=== PATIENT | male | born 1975 | race American Indian/Alaskan Native ===

== ENCOUNTER 2017-10-12 07:03 | Inpatient (IN) | payer MEDICARE ==
[2017-10-12 08:20] LABS: Basophils % (Auto) 1.7 % (0.0-1.8); Eosinophils % (Auto) 0.2 % (0.0-4.3); Hemoglobin 10.4 gm/dl (11.8-15.2); Mean Corpuscular HGB Conc 33 % (32-34); Mean Corpuscular Hemoglobin 31 pg (28-32); Mean Corpuscular Volume 95 fl (84-94); Red Blood Count 3.37 M/mm3 (3.65-5.03); Red Cell Distribution Width 18.4 % (13.2-15.2); White Blood Count 2.5 K/mm3 (4.5-11.0)
[2017-10-12 08:24] LABS: Platelet Count 74 K/mm3 (140-440)
[2017-10-12 08:38] LABS: Albumin 3.9 g/dL (3.9-5); Albumin/Globulin Ratio 1.4 %; Bilirubin,Total 0.8 mg/dL (0.1-1.2); Chloride 97.6 mmol/L (98-107); Magnesium 2.2 mg/dL (1.7-2.3); Potassium 5.5 mmol/L (3.6-5.0); Total Protein 6.6 g/dL (6.3-8.2)
--- NOTE | 2017-10-12 10:14 | XRay Report ---
Single view chest: Compared to 05/31/16. Next History: Hypertension. Findings: Cardiomegaly. Trachea is midline. A stable pacemaker. Mild pulmonary venous congestion. No consolidation. Impression: Cardiomegaly with mild pulmonary venous congestion.
[2017-10-12] MEDS ORDERED: D50W (25GM) Syringe IV PRN (10:38)
[2017-10-12] MEDS ORDERED: SODIUM CHLORIDE FLUSH SYRINGE 10 ML IV PRN (10:38)
[2017-10-12] MEDS ORDERED: ZOFRAN IV PRN (10:38)
[2017-10-12] MEDS ORDERED: DULCOLAX PR PRN (10:38)
[2017-10-12] MEDS ORDERED: TYLENOL PO PRN (10:38)
--- NOTE | 2017-10-12 11:38 | Emergency Department Report ---
ED General Adult HPI - General Chief complaint: Altered Mental Status Stated complaint: SYNCOPE Time Seen by Provider: 10/12/17 09:31 Source: family, EMS Mode of arrival: Stretcher Limitations: Altered Mental Status, Physical Limitation - History of Present Illness Initial comments: The patient was sent from dialysis for evaluation of an apparent syncopal episode. He is lethargic and not providing any real information. He is reticent to open his eyes but he is able to do so. He is also not cooperative with providing history although he can communicate his name and context amply. He is here with 2 ladies who are likely family members. They state that the patient goes via transport to dialysis. He cannot state if he was in his normal state of health a.m. He has not been to this facility before. He has a dialysis fistula and not a Vas-Cath. They state that they are unaware of him having any life-threatening infections in the past. No transfer information was sent with the patient from the dialysis clinic. No further information is the available concerning his hemodynamic or or mental status. -: Sudden Associated Symptoms: other (lethargic and not answering questions well) - Related Data Home Medications Medication Instructions Recorded Confirmed Last Taken Carvedilol [Coreg] 1 tab PO BID 06/21/14 08/24/14 07/22/14 12.5mg Insulin Glargine,Hum.rec.anlog 20 unit SQ QHS 06/21/14 08/24/14 07/22/14 [Lantus] 20 units Sevelamer Carbonate [Renvela] 800 mg PO TIDWM 06/21/14 08/24/14 07/22/14 800mg Atorvastatin [Lipitor] 80 mg PO QHS 06/26/14 08/24/14 07/22/14 80mg Clopidogrel [Plavix] 75 mg PO QDAY 06/26/14 08/24/14 07/22/14 75mg Previous Rx's Medication Instructions Recorded Last Taken Type Clindamycin [Clindamycin CAP] 450 mg PO TID #30 capsule 08/08/14 Unknown Rx Ciprofloxacin HCl [Ciprofloxacin 500 mg PO Q12H #14 tab 09/02/15 Unknown Rx TAB] Acyclovir [Zovirax Cap] 400 mg PO BID #10 cap 06/02/16 Unknown Rx HYDROcodone/APAP 5-325 [[place] 1 each PO Q6HR PRN #12 tablet 06/02/16 Unknown Rx 5-325 mg TAB] predniSONE [Deltasone] 20 mg PO QDAY #10 tablet 06/02/16 Unknown Rx Allergies Allergy/AdvReac Type Severity Reaction Status Date / Time No Known Allergies Allergy Verified 09/02/15 12:29 ED Review of Systems ROS: Stated complaint: SYNCOPE Other details as noted in HPI Comment: Unobtainable due to pts medical conditions ED Past Medical Hx - Past Medical History Hx Hypertension: Yes Hx CVA: Yes (10-04) Hx Heart Attack/AMI: Yes Hx Congestive Heart Failure: Yes Hx Diabetes: Yes Hx GERD: Yes Hx Liver Disease: No Hx Renal Disease: Yes (dialysis Tue, Thur, Sat) Hx Sickle Cell Disease: No Hx Seizures: No Hx Asthma: No Hx COPD: No Hx HIV: No Additional medical history: Gastroparesis. HYPERLIPIDEMIA. "cardiac arrest- then stroke in sep" - Surgical History Hx Coronary Stent: Yes Hx Pacemaker: Yes Hx Internal Defibrillator: Yes Additional Surgical History: RT AKA. pacemaker - Social History Smoking Status: Never Smoker - Medications Home Medications: Home Medications Medication Instructions Recorded Confirmed Last Taken Type Carvedilol [Coreg] 1 tab PO BID 06/21/14 08/24/14 07/22/14 History 12.5mg Insulin Glargine,Hum.rec.anlog 20 unit SQ QHS 06/21/14 08/24/14 07/22/14 History [Lantus] 20 units Sevelamer Carbonate [Renvela] 800 mg PO TIDWM 06/21/14 08/24/14 07/22/14 History 800mg Atorvastatin [Lipitor] 80 mg PO QHS 06/26/14 08/24/14 07/22/14 History 80mg Clopidogrel [Plavix] 75 mg PO QDAY 06/26/14 08/24/14 07/22/14 History 75mg Clindamycin [Clindamycin CAP] 450 mg PO TID #30 capsule 08/08/14 08/24/14 Unknown Rx Ciprofloxacin HCl [Ciprofloxacin 500 mg PO Q12H #14 tab 09/02/15 Unknown Rx TAB] Acyclovir [Zovirax Cap] 400 mg PO BID #10 cap 06/02/16 Unknown Rx HYDROcodone/APAP 5-325 [[place] 1 each PO Q6HR PRN #12 tablet 06/02/16 Unknown Rx 5-325 mg TAB] predniSONE [Deltasone] 20 mg PO QDAY #10 tablet 06/02/16 Unknown Rx ED Physical Exam - General Limitations: Altered Mental Status, Physical Limitation General appearance: alert, in no apparent distress - Head Head exam: Present: atraumatic, normocephalic - Eye Eye exam: Present: normal appearance. Absent: scleral icterus - ENT ENT exam: Present: mucous membranes moist - Neck Neck exam: Present: normal inspection - Respiratory Respiratory exam: Present: normal lung sounds bilaterally. Absent: respiratory distress - Cardiovascular Cardiovascular Exam: Present: regular rate, normal rhythm. Absent: systolic murmur, diastolic murmur, rubs, gallop - GI/Abdominal GI/Abdominal exam: Present: soft, normal bowel sounds. Absent: distended, tenderness, guarding, rebound, rigid - Rectal Rectal exam: Present: deferred - Extremities Exam Extremities exam: Present: normal inspection - Back Exam Back exam: Present: normal inspection - Neurological Exam Neurological exam: Present: alert, oriented X3, CN II-XII intact. Absent: motor sensory deficit - Psychiatric Psychiatric exam: Present: normal affect, normal mood - Skin Skin exam: Present: warm, dry, intact, normal color. Absent: rash ED Course Vital Signs 10/12/17 07:34 Temperature 98.5 F Pulse Rate 94 H Respiratory 16 Rate Blood Pressure 98/63 O2 Sat by Pulse 95 Oximetry - Reevaluation(s) Reevaluation #1: Case discussed with Dr. Hernandez and admitted to the hospitalist service. Additional lab was ordered considering the patient's lethargic state. 10/12/17 11:59 Reevaluation #2: The pathologist was paged. Finally I have spoken to Dr. Caballero and he stated that he would enter dialysis orders. 10/12/17 12:00 Reevaluation #3: Review of the patient's previous records indicates that he has a post anoxic brain injury. Perhaps his mental status is his baseline. Further evaluation per hospitalist staff. 10/12/17 12:03 ED Medical Decision Making - Lab Data Result diagrams: 10/12/17 07:55 10/12/17 07:55 Laboratory Results - last 24 hr 10/12/17 10/12/17 10/12/17 07:55 07:55 07:55 WBC 2.5 L RBC 3.37 L Hgb 10.4 L Hct 32.0 L MCV 95 H MCH 31 MCHC 33 RDW 18.4 H Plt Count 74 L Lymph % (Auto) 15.6 [place] % (Auto) 13.7 H Eos % (Auto) 0.2 Baso % (Auto) 1.7 Lymph # 0.4 L [place] # 0.3 Eos # 0.0 Baso # 0.0 Seg Neutrophils % 68.8 Seg Neutrophils # 1.7 L Sodium 141 Potassium 5.5 H Chloride 97.6 L Carbon Dioxide 28 Anion Gap 21 BUN 72 H Creatinine 8.3 H Estimated GFR 9 BUN/Creatinine Ratio 9 Glucose 149 H Lactic Acid 1.10 Calcium 9.0 Magnesium 2.20 Total Bilirubin 0.80 AST 29 ALT 28 Alkaline Phosphatase 94 Total Protein 6.6 Albumin 3.9 Albumin/Globulin Ratio 1.4 TSH Salicylates Acetaminophen Plasma/Serum Alcohol 10/12/17 10/12/17 10/12/17 07:55 07:55 07:55 WBC RBC Hgb Hct MCV MCH MCHC RDW Plt Count Lymph % (Auto) [place] % (Auto) Eos % (Auto) Baso % (Auto) Lymph # [place] # Eos # Baso # Seg Neutrophils % Seg Neutrophils # Sodium Potassium Chloride Carbon Dioxide Anion Gap BUN Creatinine Estimated GFR BUN/Creatinine Ratio Glucose Lactic Acid Calcium Magnesium Total Bilirubin AST ALT Alkaline Phosphatase Total Protein Albumin Albumin/Globulin Ratio TSH 1.150 Salicylates < 0.3 L Acetaminophen < 15.0 Plasma/Serum Alcohol 10/12/17 10/12/17 07:55 10:41 WBC RBC Hgb Hct MCV MCH MCHC RDW Plt Count Lymph % (Auto) [place] % (Auto) Eos % (Auto) Baso % (Auto) Lymph # [place] # Eos # Baso # Seg Neutrophils % Seg Neutrophils # Sodium Potassium Chloride Carbon Dioxide Anion Gap BUN Creatinine Estimated GFR BUN/Creatinine Ratio Glucose Lactic Acid 1.00 Calcium Magnesium Total Bilirubin AST ALT Alkaline Phosphatase Total Protein Albumin Albumin/Globulin Ratio TSH Salicylates Acetaminophen Plasma/Serum Alcohol < 0.01 - EKG Data -: EKG Interpreted by Me EKG shows normal: sinus rhythm, axis, intervals, QRS complexes, ST-T waves Rate: normal - EKG Data Interpretation: other (leftward axis NONSPECIFIC changes interventricular conduction delay slightly peaked T-wave) - Radiology Data Radiology results: report reviewed interpreted by me: Cardiomegaly with pulmonary venous congestion Critical care attestation.: If time is entered above; I have spent that time in minutes in the direct care of this critically ill patient, excluding procedure time. ED Disposition Clinical Impression: Hyperkalemia, End-stage renal disease needing dialysis Altered mental status Qualifiers: Altered mental status type: somnolence Qualified Code(s): R40.0 - Somnolence Syncope Qualifiers: Syncope type: unspecified Qualified Code(s): R55 - Syncope and collapse Disposition: DC-09 OP ADMIT IP TO THIS HOSP Is pt being admited?: Yes Does the pt Need Aspirin: Yes Condition: Stable Time of Disposition: 12:05
[2017-10-12] MEDS ORDERED: NACL 0.9% 100 ML IV PRN (11:52)
[2017-10-12] MEDS: NOVOLOG SUB-Q SCH ×3 (12:29→22:00)
[2017-10-12] MEDS: RENVELA PO SCH ×2 (13:03→18:03)
--- NOTE | 2017-10-12 13:05 | Consultation ---
History of Present Illness - Reason for Consult Consult date: 10/12/17 end stage renal disease, hyperkalemia Requesting physician: RADHA BARRAZA - History of Present Illness 42 years old male with PMH listed below including ESRD, known to us from out pateint dialysis at [facility], sent from dialysis center before the start of dialysis for evaluation of AMS/syncope. No seizure witnessed. Pt unable to provide any history. We are consulted for management of his ESRD/hyperkalemia. Past Medical History: diabetes, ESRD, hypertension, hyperlipidemia Past Surgical History: Other (right AKA) Social history: no significant social history Family history: no significant family history Medications and Allergies Allergies Allergy/AdvReac Type Severity Reaction Status Date / Time No Known Allergies Allergy Verified 09/02/15 12:29 Home Medications Medication Instructions Recorded Confirmed Last Taken Type Carvedilol [Coreg] 1 tab PO BID 06/21/14 08/24/14 07/22/14 History 12.5mg Insulin Glargine,Hum.rec.anlog 20 unit SQ QHS 06/21/14 08/24/14 07/22/14 History [Lantus] 20 units Sevelamer Carbonate [Renvela] 800 mg PO TIDWM 06/21/14 08/24/14 07/22/14 History 800mg Atorvastatin [Lipitor] 80 mg PO QHS 06/26/14 08/24/14 07/22/14 History 80mg Clopidogrel [Plavix] 75 mg PO QDAY 06/26/14 08/24/14 07/22/14 History 75mg Clindamycin [Clindamycin CAP] 450 mg PO TID #30 capsule 08/08/14 08/24/14 Unknown Rx Ciprofloxacin HCl [Ciprofloxacin 500 mg PO Q12H #14 tab 09/02/15 Unknown Rx TAB] Acyclovir [Zovirax Cap] 400 mg PO BID #10 cap 06/02/16 Unknown Rx HYDROcodone/APAP 5-325 [[place] 1 each PO Q6HR PRN #12 tablet 06/02/16 Unknown Rx 5-325 mg TAB] predniSONE [Deltasone] 20 mg PO QDAY #10 tablet 06/02/16 Unknown Rx Active Meds: Active Medications Acetaminophen (Tylenol) 650 mg PO Q4H PRN PRN Reason: Pain MILD(1-3)/Fever >100.5/[place] Acyclovir (Zovirax) 400 mg PO BID [facility] Aspirin (Baby Aspirin) 81 mg PO QDAY ONE Stop: 10/13/17 12:07 Atorvastatin Calcium (Lipitor) 80 mg PO QHS [facility] Bisacodyl (Dulcolax) 10 mg [place] QDAY PRN PRN Reason: Constipation unrelieved by MOM Clopidogrel Bisulfate (Plavix) 75 mg PO QDAY [facility] Dextrose (D50w (25gm) Syringe) 50 ml IV PRN PRN PRN Reason: Hypoglycemia Heparin Sodium (Porcine) (Heparin) 5,000 unit SUB-Q Q12HR [facility] Sodium Chloride (Nacl 0.9%) 100 mls @ 999 mls/hr IV ELVIN PRN PRN Reason: Hypotension Insulin Aspart (Novolog) 0 units SUB-Q ACHS [facility] PRN Reason: Protocol Last Admin: 10/12/17 12:29 Dose: Not Given Insulin Detemir (Levemir) 20 units SUB-Q QHS [facility] Ondansetron HCl (Zofran) 4 mg IV Q8H PRN PRN Reason: N/V unrelieved by [place] Sevelamer Carbonate (Renvela) 800 mg PO TIDWM [facility] Last Admin: 10/12/17 13:03 Dose: 800 mg Sodium Chloride (Sodium Chloride Flush Syringe 10 Ml) 10 ml IV PRN PRN PRN Reason: LINE FLUSH Review of Systems ROS unobtainable: due to mental status Exam - Vital Signs Vital signs: Vital Signs Temp Pulse Resp BP Pulse Ox 98.5 F 94 H 16 98/63 95 10/12/17 07:34 10/12/17 07:34 10/12/17 07:34 10/12/17 07:34 10/12/17 07:34 - General Appearance General appearance: well-developed, chronically ill, frail EENT: ATNC, PERRL, mucous membranes moist Neck: Present: neck supple, trachea midline. Absent: JVD/HJR, Masses Respiratory: Clear to Ascultation, Other (no wheezing ) Heart: regular, normal heart rate, S1S2, no murmurs Gastrointestinal: Present: normoactive bowel sounds. Absent: tenderness Integumentary: no rash, warm and dry Neurologic: other (eyes closed, nonverbal. He does have a residual left sided weakness. ) Musculoskeletal: Present: other (right AKA, LUE AVF +thrill ) Results - Lab Results 10/12/17 07:55 10/12/17 07:55 Most recent lab results Calcium 9.0 mg/dL (8.4-10.2) 10/12/17 07:55 Magnesium 2.20 mg/dL (1.7-2.3) 10/12/17 07:55 Assessment and Plan 1. Syncope 2. ESRD on HD 3. Hyperkalemia 4. Pancytopenia 5. Chronic Systolic HF Plan: Dialysis arrangement made Epogen on dialysis Will correct hyperK+ on dialysis Cause for his pancytopenia unclear-consider heme consult Discussed with Dr Barraza.
[2017-10-12] MEDS: ZOVIRAX PO SCH (21:54)
[2017-10-12] MEDS: HEPARIN SUB-Q SCH (21:55)
[2017-10-12] MEDS: LEVEMIR SUB-Q SCH (22:00)
[2017-10-13 07:18] LABS: Albumin 3.7 g/dL (3.9-5); Albumin/Globulin Ratio 1.2 %; Bilirubin,Total 0.8 mg/dL (0.1-1.2); Chloride 97.4 mmol/L (98-107); Potassium 4.9 mmol/L (3.6-5.0); Total Protein 6.7 g/dL (6.3-8.2)
[2017-10-13 07:20] LABS: Basophils % (Auto) 1.1 % (0.0-1.8); Eosinophils % (Auto) 9.9 % (0.0-4.3); Hematocrit 36.2 % (35.5-45.6); Hemoglobin 11.6 gm/dl (11.8-15.2); Mean Corpuscular HGB Conc 32 % (32-34); Mean Corpuscular Hemoglobin 30 pg (28-32); Mean Corpuscular Volume 94 fl (84-94); Red Blood Count 3.86 M/mm3 (3.65-5.03); Red Cell Distribution Width 18.8 % (13.2-15.2); White Blood Count 3.3 K/mm3 (4.5-11.0)
[2017-10-13 07:31] LABS: Platelet Count 88 K/mm3 (140-440)
[2017-10-13] MEDS: NOVOLOG SUB-Q SCH ×4 (08:47→22:00)
[2017-10-13] MEDS: RENVELA PO SCH ×3 (08:48→16:48)
[2017-10-13] MEDS ORDERED: LEXISCAN IV ONE ×2 (09:20→10:13)
[2017-10-13] MEDS ORDERED: BABY ASPIRIN PO ONE ×2 (10:00→12:06)
--- NOTE | 2017-10-13 10:37 | History and Physical Report ---
History of Present Illness Date of admission: 10/12/17 10:38 Chief complaint: syncope History of present illness: 42 year old man with a past medical history of end-stage renal disease on dialysis, hypertension, systolic CHF, EF of 10%, sp ICD, diabetes, status post right AKA. The patient was at dialysis in a Supine position when he had a sudden syncopal episode. Upon arrival to the emergency room he was altered and confused and somnolence and lethargic. Patient unable to provide any further history, he states that he doesn't really remember what happened, he was at dialysis, he passed out. He denies chest pain, shortness of breath, palpitations or fever Past History Past Medical History: diabetes, dialysis, ESRD, hypertension, hyperlipidemia Past Surgical History: Other (R AKA, ICD, AVF) Social history: lives with family Family history: hypertension Medications and Allergies Allergies Allergy/AdvReac Type Severity Reaction Status Date / Time No Known Allergies Allergy Verified 09/02/15 12:29 Home Medications Medication Instructions Recorded Confirmed Last Taken Type Carvedilol [Coreg] 1 tab PO BID 06/21/14 08/24/14 07/22/14 History 12.5mg Insulin Glargine,Hum.rec.anlog 20 unit SQ QHS 06/21/14 08/24/14 07/22/14 History [Lantus] 20 units Sevelamer Carbonate [Renvela] 800 mg PO TIDWM 06/21/14 08/24/14 07/22/14 History 800mg Atorvastatin [Lipitor] 80 mg PO QHS 06/26/14 08/24/14 07/22/14 History 80mg Clopidogrel [Plavix] 75 mg PO QDAY 06/26/14 08/24/14 07/22/14 History 75mg Clindamycin [Clindamycin CAP] 450 mg PO TID #30 capsule 08/08/14 08/24/14 Unknown Rx Ciprofloxacin HCl [Ciprofloxacin 500 mg PO Q12H #14 tab 09/02/15 Unknown Rx TAB] Acyclovir [Zovirax Cap] 400 mg PO BID #10 cap 06/02/16 Unknown Rx HYDROcodone/APAP 5-325 [[place] 1 each PO Q6HR PRN #12 tablet 06/02/16 Unknown Rx 5-325 mg TAB] predniSONE [Deltasone] 20 mg PO QDAY #10 tablet 06/02/16 Unknown Rx Active Meds: Active Medications Acetaminophen (Tylenol) 650 mg PO Q4H PRN PRN Reason: Pain MILD(1-3)/Fever >100.5/[place] Acyclovir (Zovirax) 400 mg PO BID [facility] Last Admin: 10/12/17 21:54 Dose: 400 mg Aspirin (Baby Aspirin) 81 mg PO QDAY ONE Stop: 10/13/17 12:07 Atorvastatin Calcium (Lipitor) 80 mg PO QHS [facility] Last Admin: 10/12/17 21:55 Dose: 80 mg Bisacodyl (Dulcolax) 10 mg [place] QDAY PRN PRN Reason: Constipation unrelieved by MOM Clopidogrel Bisulfate (Plavix) 75 mg PO QDAY [facility] Dextrose (D50w (25gm) Syringe) 50 ml IV PRN PRN PRN Reason: Hypoglycemia Heparin Sodium (Porcine) (Heparin) 5,000 unit SUB-Q Q12HR [facility] Last Admin: 10/12/17 21:55 Dose: 5,000 unit Sodium Chloride (Nacl 0.9%) 100 mls @ 999 mls/hr IV ELVIN PRN PRN Reason: Hypotension Insulin Aspart (Novolog) 0 units SUB-Q ACHS [facility] PRN Reason: Protocol Last Admin: 10/13/17 08:47 Dose: Not Given Insulin Detemir (Levemir) 20 units SUB-Q QHS [facility] Last Admin: 10/12/17 22:00 Dose: Not Given Ondansetron HCl (Zofran) 4 mg IV Q8H PRN PRN Reason: N/V unrelieved by Reglan Last Admin: 10/13/17 07:03 Dose: 4 mg Sevelamer Carbonate (Renvela) 800 mg PO TIDWM [facility] Last Admin: 10/13/17 08:48 Dose: Not Given Sodium Chloride (Sodium Chloride Flush Syringe 10 Ml) 10 ml IV PRN PRN PRN Reason: LINE FLUSH Review of Systems ROS unobtainable: due to mental status Cardiovascular: syncope, no chest pain Exam - Constitutional Vitals: Temp Pulse Resp BP Pulse Ox 97.4 F L 81 18 128/80 98 10/13/17 04:25 10/13/17 06:29 10/13/17 04:25 10/13/17 04:25 10/13/17 04:25 General appearance: Present: no acute distress, well-nourished - EENT Eyes: Present: PERRL ENT: hearing intact, clear oral mucosa - Neck Neck: Present: supple, normal ROM - Respiratory Respiratory effort: normal Respiratory: bilateral: CTA - Cardiovascular Heart Sounds: Present: S1 & S2. Absent: rub, click - Extremities Extremities: pulses symmetrical, No edema, abnormal (R AKA) Peripheral Pulses: within normal limits - Abdominal General gastrointestinal: Present: soft, non-tender, non-distended, normal bowel sounds Male genitourinary: Present: normal - Integumentary Integumentary: Present: clear, warm, dry - Musculoskeletal Musculoskeletal: gait normal, strength equal bilaterally - Psychiatric Psychiatric: cooperative, other (lethargic) - Neurologic Neurologic: CNII-XII intact, moves all extremities Results - Labs CBC & Chem 7: 10/13/17 05:58 10/13/17 05:58 Labs: Laboratory Last Values WBC 3.3 K/mm3 (4.5-11.0) L 10/13/17 05:58 RBC 3.86 M/mm3 (3.65-5.03) 10/13/17 05:58 Hgb 11.6 gm/dl (11.8-15.2) L 10/13/17 05:58 Hct 36.2 % (35.5-45.6) 10/13/17 05:58 MCV 94 fl (84-94) 10/13/17 05:58 MCH 30 pg (28-32) 10/13/17 05:58 MCHC 32 % (32-34) 10/13/17 05:58 RDW 18.8 % (13.2-15.2) H 10/13/17 05:58 Plt Count 88 K/mm3 (140-440) L 10/13/17 05:58 Lymph % (Auto) 26.1 % (13.4-35.0) 10/13/17 05:58 [place] % (Auto) 12.0 % (0.0-7.3) H 10/13/17 05:58 Eos % (Auto) 9.9 % (0.0-4.3) H 10/13/17 05:58 Baso % (Auto) 1.1 % (0.0-1.8) 10/13/17 05:58 Lymph # 0.9 K/mm3 (1.2-5.4) L 10/13/17 05:58 [place] # 0.4 K/mm3 (0.0-0.8) 10/13/17 05:58 Eos # 0.3 K/mm3 (0.0-0.4) 10/13/17 05:58 Baso # 0.0 K/mm3 (0.0-0.1) 10/13/17 05:58 Seg Neutrophils % 50.9 % (40.0-70.0) 10/13/17 05:58 Seg Neutrophils # 1.7 K/mm3 (1.8-7.7) L 10/13/17 05:58 Sodium 142 mmol/L (137-145) 10/13/17 05:58 Potassium 4.9 mmol/L (3.6-5.0) 10/13/17 05:58 Chloride 97.4 mmol/L (98-107) L 10/13/17 05:58 Carbon Dioxide 23 mmol/L (22-30) 10/13/17 05:58 Anion Gap 27 mmol/L 10/13/17 05:58 BUN 55 mg/dL (9-20) H 10/13/17 05:58 Creatinine 7.7 mg/dL (0.8-1.5) H 10/13/17 05:58 Estimated GFR 9 ml/min 10/13/17 05:58 BUN/Creatinine Ratio 7 % 10/13/17 05:58 Glucose 98 mg/dL (75-100) 10/13/17 05:58 POC Glucose 127 (70-105) H 10/13/17 08:24 Lactic Acid 1.00 mmol/L (0.7-2.0) 10/12/17 10:41 Calcium 9.0 mg/dL (8.4-10.2) 10/13/17 05:58 Magnesium 2.20 mg/dL (1.7-2.3) 10/12/17 07:55 Total Bilirubin 0.80 mg/dL (0.1-1.2) 10/13/17 05:58 AST 33 units/L (5-40) 10/13/17 05:58 ALT 30 units/L (7-56) 10/13/17 05:58 Alkaline Phosphatase 89 units/L (35-129) 10/13/17 05:58 Troponin T 0.904 ng/mL (0.00-0.029) H* 10/13/17 05:58 Total Protein 6.7 g/dL (6.3-8.2) 10/13/17 05:58 Albumin 3.7 g/dL (3.9-5) L 10/13/17 05:58 Albumin/Globulin Ratio 1.2 % 10/13/17 05:58 Triglycerides 99 mg/dL (2-149) 10/12/17 20:55 Cholesterol 80 mg/dL (50-199) 10/12/17 20:55 LDL Cholesterol Direct 32 mg/dL (50-130) L 10/12/17 20:55 HDL Cholesterol 29 mg/dL (40-59) L 10/12/17 20:55 Cholesterol/HDL Ratio 2.75 % 10/12/17 20:55 TSH 1.150 mlU/mL (0.270-4.200) 10/12/17 07:55 Salicylates < 0.3 mg/dL (2.8-20.0) L 10/12/17 07:55 Acetaminophen < 15.0 ug/mL (10.0-30.0) 10/12/17 07:55 Plasma/Serum Alcohol < 0.01 gm% (0-0.07) 10/12/17 07:55 - Imaging and Cardiology Chest x-ray: image reviewed (pulmonary venous congestion) Assessment and Plan Assessment and plan: Syncope 42M who pw syncope at HD Disequilibrium due to HD -likely from fluid removal with HD -continue HD as tolerated Syncope -obtain CE, echo and stress test -monitor on Tele Pancytopenia -hematology consult Metabolic encephalopathy -most likely due to disequilibrium -supportive care Diabetes mellitus Continue insulin therapy. Continue Accu-Cheks before meals and daily at bedtime. End stage renal disease Continue dialysis, case dw nephrology Hypertension Controlled. Continue current medication Sytolic CHF with acute exacerbation fluid removal via HD cardiology consult Plan of care discussed with patient/family: Yes
[2017-10-13] MEDS: HEPARIN SUB-Q SCH ×2 (11:14→21:58)
--- NOTE | 2017-10-13 13:22 | Progress Note ---
Assessment and Plan 1. Syncope 2. ESRD on HD 3. Hyperkalemia 4. Pancytopenia 5. Chronic Systolic HF Plan: Will continue HD on TTS schedule Epogen on dialysis HyperK+ improved on dialysis Cause for his pancytopenia unclear-consider heme consult Subjective Date of service: 10/13/17 Interval history: NO new events. Objective - Exam Narrative Exam: General appearance: well-developed, chronically ill, frail EENT: ATNC, PERRL, mucous membranes moist Neck: Present: neck supple, trachea midline. Absent: JVD/HJR, Masses Respiratory: Clear to Ascultation, Other (no wheezing ) Heart: regular, normal heart rate, S1S2, no murmurs Gastrointestinal: Present: normoactive bowel sounds. Absent: tenderness Integumentary: no rash, warm and dry Neurologic: other (eyes closed, nonverbal. He does have a residual left sided weakness. ) Musculoskeletal: Present: other (right AKA, LUE AVF +thrill ) - Vital Signs Vital signs: Vital Signs - 12hr 10/13/17 10/13/17 10/13/17 04:25 06:29 10:00 Temperature 97.4 F L Pulse Rate 72 81 Respiratory 18 16 Rate Blood Pressure 128/80 O2 Sat by Pulse 98 Oximetry 10/13/17 12:42 Temperature Pulse Rate 71 Respiratory Rate Blood Pressure O2 Sat by Pulse Oximetry - Lab 10/13/17 05:58 10/13/17 05:58 Most recent lab results Calcium 9.0 mg/dL (8.4-10.2) 10/13/17 05:58 Magnesium 2.20 mg/dL (1.7-2.3) 10/12/17 07:55
[2017-10-13] MEDS: PLAVIX PO SCH (14:46)
[2017-10-13] MEDS: ZOVIRAX PO SCH ×2 (14:46→21:58)
[2017-10-13] MEDS: BABY ASPIRIN PO SCH (15:46)
[2017-10-13] MEDS: LEVEMIR SUB-Q SCH (22:00)
--- NOTE | 2017-10-14 08:46 | Progress Note ---
Assessment and Plan 1. Syncope 2. ESRD on HD 3. Hyperkalemia 4. Pancytopenia 5. Chronic Systolic HF Plan: Will continue HD on TTS schedule Epogen on dialysis HyperK+ improved on dialysis Pancytopenia improving Mental staus back to baseline D/c planning per primary team--> ok from renal perspective. Subjective Date of service: 10/14/17 Interval history: No new event overnight Objective - Exam Narrative Exam: General appearance: well-developed, chronically ill, frail EENT: ATNC, PERRL, mucous membranes moist Neck: Present: neck supple, trachea midline. Absent: JVD/HJR, Masses Respiratory: Clear to Ascultation, Other (no wheezing ) Heart: regular, normal heart rate, S1S2, no murmurs Gastrointestinal: Present: normoactive bowel sounds. Absent: tenderness Integumentary: no rash, warm and dry Neurologic: other (eyes closed, nonverbal. He does have a residual left sided weakness. ) Musculoskeletal: Present: other (right AKA, LUE AVF +thrill ) - Vital Signs Vital signs: Vital Signs - 12hr 10/13/17 10/13/17 10/14/17 22:00 23:43 01:58 Temperature 98.2 F Pulse Rate 81 77 Respiratory 18 16 Rate Blood Pressure 131/85 O2 Sat by Pulse 89 Oximetry 10/14/17 10/14/17 10/14/17 03:02 06:00 07:57 Temperature 97.9 F 98.1 F Pulse Rate 79 79 83 Respiratory 18 16 Rate Blood Pressure 133/72 151/94 O2 Sat by Pulse 94 100 Oximetry - Lab 10/13/17 05:58 10/13/17 05:58 Most recent lab results Calcium 9.0 mg/dL (8.4-10.2) 10/13/17 05:58 Magnesium 2.20 mg/dL (1.7-2.3) 10/12/17 07:55
--- NOTE | 2017-10-14 09:42 | Hem/Onc Consultation ---
History of Present Illness - Reason for Consult Consult date: 10/14/17 - History of Present Illness 42 year old man with a past medical history of end-stage renal disease on dialysis, hypertension, CHF, EF of 10%, sp ICD, diabetes, status post right AKA. The patient was at dialysis when he had a sudden syncopal episode. Upon arrival to the emergency room he was altered and confused and somnolence and lethargic. Patient unable to provide any further history. patient found to have pancytopenia. Past History Past Medical History: diabetes, dialysis, ESRD, hypertension, hyperlipidemia Past Surgical History: Other (R AKA, ICD, AVF) Social history: lives with family Family history: hypertension Medications and Allergies Allergies Allergy/AdvReac Type Severity Reaction Status Date / Time No Known Allergies Allergy Verified 09/02/15 12:29 Home Medications Medication Instructions Recorded Confirmed Last Taken Type Carvedilol [Coreg] 1 tab PO BID 06/21/14 08/24/14 07/22/14 History 12.5mg Insulin Glargine,Hum.rec.anlog 20 unit SQ QHS 06/21/14 08/24/14 07/22/14 History [Lantus] 20 units Sevelamer Carbonate [Renvela] 800 mg PO TIDWM 06/21/14 08/24/14 07/22/14 History 800mg Atorvastatin [Lipitor] 80 mg PO QHS 06/26/14 08/24/14 07/22/14 History 80mg Clopidogrel [Plavix] 75 mg PO QDAY 06/26/14 08/24/14 07/22/14 History 75mg Clindamycin [Clindamycin CAP] 450 mg PO TID #30 capsule 08/08/14 08/24/14 Unknown Rx Ciprofloxacin HCl [Ciprofloxacin 500 mg PO Q12H #14 tab 09/02/15 Unknown Rx TAB] Acyclovir [Zovirax Cap] 400 mg PO BID #10 cap 06/02/16 Unknown Rx HYDROcodone/APAP 5-325 [[place] 1 each PO Q6HR PRN #12 tablet 06/02/16 Unknown Rx 5-325 mg TAB] predniSONE [Deltasone] 20 mg PO QDAY #10 tablet 06/02/16 Unknown Rx Active Meds: Active Medications Acetaminophen (Tylenol) 650 mg PO Q4H PRN PRN Reason: Pain MILD(1-3)/Fever >100.5/[place] Acyclovir (Zovirax) 400 mg PO BID [facility] Last Admin: 10/13/17 21:58 Dose: 400 mg Aspirin (Baby Aspirin) 81 mg PO QDAY [facility] Last Admin: 10/13/17 15:46 Dose: Not Given Atorvastatin Calcium (Lipitor) 80 mg PO QHS [facility] Last Admin: 10/13/17 21:58 Dose: 80 mg Bisacodyl (Dulcolax) 10 mg [place] QDAY PRN PRN Reason: Constipation unrelieved by MOM Clopidogrel Bisulfate (Plavix) 75 mg PO QDAY [facility] Last Admin: 10/13/17 14:46 Dose: 75 mg Dextrose (D50w (25gm) Syringe) 50 ml IV PRN PRN PRN Reason: Hypoglycemia Heparin Sodium (Porcine) (Heparin) 5,000 unit SUB-Q Q12HR [facility] Last Admin: 10/13/17 21:58 Dose: 5,000 unit Sodium Chloride (Nacl 0.9%) 100 mls @ 999 mls/hr IV ELVIN PRN PRN Reason: Hypotension Insulin Aspart (Novolog) 0 units SUB-Q ACHS [facility] PRN Reason: Protocol Last Admin: 10/13/17 22:00 Dose: Not Given Insulin Detemir (Levemir) 20 units SUB-Q QHS [facility] Last Admin: 10/13/17 22:00 Dose: 20 units Ondansetron HCl (Zofran) 4 mg IV Q8H PRN PRN Reason: N/V unrelieved by Reglan Last Admin: 10/13/17 07:03 Dose: 4 mg Sevelamer Carbonate (Renvela) 800 mg PO TIDWM [facility] Last Admin: 10/13/17 16:48 Dose: 800 mg Sodium Chloride (Sodium Chloride Flush Syringe 10 Ml) 10 ml IV PRN PRN PRN Reason: LINE FLUSH Review of Systems ROS unobtainable: due to mental status Exam - Constitutional Vitals: Last Vital Signs Temp 98.1 F 10/14/17 07:57 Pulse 83 10/14/17 07:57 Resp 16 10/14/17 07:57 BP 151/94 10/14/17 07:57 Pulse Ox 100 10/14/17 07:57 General appearance: no acute distress - EENT Eyes: PERRL ENT: hearing intact Lymph node exam: negative cervical - Respiratory Respiratory effort: Positive: normal Respiratory: bilateral: CTA - Cardiovascular Rhythm: regular Heart Sounds: Present: S1 & S2 Extremities: abnormal (Rt AKA. Dialysis access in the rt arm) - Gastrointestinal General gastrointestinal: Present: non-distended, normal bowel sounds - Integumentary Integumentary: clear, warm - Neurologic Neurologic: other (awake, cannnot answer questions clearly.) Results - Labs lab Results: Laboratory Results - last 24 hr 10/13/17 10/13/17 17:03 21:42 POC Glucose 156 H 139 H Assessment and Plan 1- mild pancytopenia in a patient with multiple medical problems and with syncopal episode. would rechecking today and monitoring. would consider r/o infection as an etiology of AMS and abnormal counts. 2- ESRD on HD 3- DM 4- CHF
[2017-10-14 09:47] LABS: Basophils % (Auto) 2.7 % (0.0-1.8); Eosinophils % (Auto) 1.2 % (0.0-4.3); Hematocrit 38.3 % (35.5-45.6); Mean Corpuscular HGB Conc 31 % (32-34); Mean Corpuscular Hemoglobin 30 pg (28-32); Mean Corpuscular Volume 94 fl (84-94); Platelet Count 105 K/mm3 (140-440); Red Blood Count 4.07 M/mm3 (3.65-5.03); Red Cell Distribution Width 18.9 % (13.2-15.2); White Blood Count 2.9 K/mm3 (4.5-11.0)
[2017-10-14] MEDS: PLAVIX PO SCH (09:49)
[2017-10-14] MEDS: ZOVIRAX PO SCH (09:49)
[2017-10-14] MEDS: HEPARIN SUB-Q SCH (09:49)
[2017-10-14] MEDS: BABY ASPIRIN PO SCH (09:49)
[2017-10-14] MEDS: RENVELA PO SCH ×2 (09:49→12:33)
[2017-10-14] MEDS: NOVOLOG SUB-Q SCH ×2 (09:56→12:34)
--- NOTE | 2017-10-14 10:11 | Consultation ---
History of Present Illness Consult date: 10/14/17 Requesting physician: FLORENCIO DIOP Consult reason: elevated troponin History of present illness: 42 year old man with a past medical history of end-stage renal disease on dialysis, hypertension, systolic CHF, EF of 10%, sp ICD, diabetes, status post right AKA. 09/2015 patient had a cardiac arrest and was taken to [facility] patient had cardiac cath revealed three-vessel coronary disease possible for bypass surgery but given patient's mental status was deemed to be treated medically patient is residing in [facility]. Patient is unable to give history and review her chart was done .The patient was at dialysis in a Supine position when he had a sudden syncopal episode. Upon arrival to the emergency room he was altered and confused and somnolence and lethargic. Patient unable to provide any further history, he states that he doesn't really remember what happened, he was at dialysis, he passed out. He denies chest pain , shortness of breath, palpitations or fever Past History Past Medical History: diabetes, dialysis, ESRD, hypertension, hyperlipidemia Past Surgical History: Other (R AKA, ICD, AVF) Social history: lives with family Family history: hypertension Medications and Allergies Allergies Allergy/AdvReac Type Severity Reaction Status Date / Time No Known Allergies Allergy Verified 09/02/15 12:29 Home Medications Medication Instructions Recorded Confirmed Last Taken Type Carvedilol [Coreg] 1 tab PO BID 06/21/14 08/24/14 07/22/14 History 12.5mg Insulin Glargine,Hum.rec.anlog 20 unit SQ QHS 06/21/14 08/24/14 07/22/14 History [Lantus] 20 units Sevelamer Carbonate [Renvela] 800 mg PO TIDWM 06/21/14 08/24/14 07/22/14 History 800mg Atorvastatin [Lipitor] 80 mg PO QHS 06/26/14 08/24/14 07/22/14 History 80mg Clopidogrel [Plavix] 75 mg PO QDAY 06/26/14 08/24/14 07/22/14 History 75mg Clindamycin [Clindamycin CAP] 450 mg PO TID #30 capsule 08/08/14 08/24/14 Unknown Rx Ciprofloxacin HCl [Ciprofloxacin 500 mg PO Q12H #14 tab 09/02/15 Unknown Rx TAB] Acyclovir [Zovirax Cap] 400 mg PO BID #10 cap 06/02/16 Unknown Rx HYDROcodone/APAP 5-325 [[place] 1 each PO Q6HR PRN #12 tablet 06/02/16 Unknown Rx 5-325 mg TAB] predniSONE [Deltasone] 20 mg PO QDAY #10 tablet 06/02/16 Unknown Rx Active Meds: Active Medications Acetaminophen (Tylenol) 650 mg PO Q4H PRN PRN Reason: Pain MILD(1-3)/Fever >100.5/[place] Acyclovir (Zovirax) 400 mg PO BID [facility] Last Admin: 10/14/17 09:49 Dose: 400 mg Aspirin (Baby Aspirin) 81 mg PO QDAY [facility] Last Admin: 10/14/17 09:49 Dose: 81 mg Atorvastatin Calcium (Lipitor) 80 mg PO QHS [facility] Last Admin: 10/13/17 21:58 Dose: 80 mg Bisacodyl (Dulcolax) 10 mg [place] QDAY PRN PRN Reason: Constipation unrelieved by MOM Clopidogrel Bisulfate (Plavix) 75 mg PO QDAY [facility] Last Admin: 10/14/17 09:49 Dose: 75 mg Dextrose (D50w (25gm) Syringe) 50 ml IV PRN PRN PRN Reason: Hypoglycemia Heparin Sodium (Porcine) (Heparin) 5,000 unit SUB-Q Q12HR [facility] Last Admin: 10/14/17 09:49 Dose: 5,000 unit Sodium Chloride (Nacl 0.9%) 100 mls @ 999 mls/hr IV ELVIN PRN PRN Reason: Hypotension Insulin Aspart (Novolog) 0 units SUB-Q [facility] PRN Reason: Protocol Last Admin: 10/14/17 09:56 Dose: Not Given Insulin Detemir (Levemir) 20 units SUB-Q QHS [facility] Last Admin: 10/13/17 22:00 Dose: 20 units Ondansetron HCl (Zofran) 4 mg IV Q8H PRN PRN Reason: N/V unrelieved by Reglan Last Admin: 10/13/17 07:03 Dose: 4 mg Sevelamer Carbonate (Renvela) 800 mg PO TIDWM [facility] Last Admin: 10/14/17 09:49 Dose: 800 mg Sodium Chloride (Sodium Chloride Flush Syringe 10 Ml) 10 ml IV PRN PRN PRN Reason: LINE FLUSH Review of Systems ROS unobtainable: due to mental status Physical Examination Vital Signs Pulse Resp Pulse Ox 83 13 97 10/12/17 07:27 10/12/17 07:27 10/12/17 07:27 General appearance: no acute distress HEENT: Positive: EOMI Neck: Positive: trachea midline Cardiac: Positive: Reg Rate and Rhythm Lungs: Positive: clear to auscultation Neuro: Positive: Other (altered mental status) Abdomen: Positive: Soft Male genitourinary: Positive: deferred Extremities: Present: Other (right aka) Results 10/14/17 09:23 10/13/17 05:58 CBC 10/14/17 Range/Units 09:23 WBC 2.9 L (4.5-11.0) K/mm3 RBC 4.07 (3.65-5.03) M/mm3 Hgb 12.0 (11.8-15.2) gm/dl Hct 38.3 (35.5-45.6) % Plt Count 105 L (140-440) K/mm3 Lymph # 0.6 L (1.2-5.4) K/mm3 [place] # 0.3 (0.0-0.8) K/mm3 Eos # 0.0 (0.0-0.4) K/mm3 Baso # 0.1 (0.0-0.1) K/mm3 - Imaging and Cardiology Stress echo: report reviewed (nuclear perfusion ef 32% large inferior infarcation, no ischemia noted normal perfusion in anterior septal and lateral and apical ) Echo: report reviewed (ef 10-15% moderate tr and severe pulm htn ) Cardiac cath: report reviewed (09/2015 lt main patent, lad patent small diagonal patent, ramus lower branch calcified 80-90%, lcx patent distal lcx severe disease in av groove, om1 -3 have 80-90% stenosis, rca calcified 75% proximal and mid and ef 25% done at [facility] after arrest) EKG interpretations - Telemetry EKG Rhythm: Sinus Rhythm (sinus rhythm nonspecific ST-T) Assessment and Plan Syncope Altered mental status Ischemic cardiomyopathy Hypertension End-stage renal disease on hemodialysis Hyperlipidemia Pancytopenia nstemi type 2 rec: Patient stress test shows large inferior infarction but no ischemia and anterior septal lateral regions EF on echo is 10-15% with severe pulmonary hypertension patient restart Coreg 12.5 mg twice a day waiting for AICD interrogation for possible events as a cause of patient's syncope. Given patient's mental status which appears to be chronic after his cardiac arrest treat medically for patient's coronary disease will also add low-dose nitrates along with beta blockers and no na inhibitors or angiotensin receptor blockers given patient's history of hyperkalemia
[2017-10-14] MEDS ORDERED: IMDUR PO SCH (12:00)
[2017-10-14 12:18] VITALS: BP 140/86
--- NOTE | 2017-10-14 12:50 | Treadmill Report ---
NUCLEAR STUDY DATE OF STUDY: 10/13/2017 REASON FOR STUDY: Abnormal troponin. IMAGING PROTOCOL: The patient received 10 mCi of Technetium 99m Tetrofosmin for resting image and 28 mCi of Technetium 99m Tetrofosmin for stress imaging. The imaging for the whole procedure was completed 30-90 minutes following the initial injection of Technetium 99m tetrofosmin. The SPECT imaging in the 180 degree arc was performed in the right anterior oblique projection. Computerized reconstruction of the images was performed for analysis IMAGING RESULTS: Cavity is dilated both at stress and rest. Distribution radionuclide is normal in the anterior, septal, lateral, apical but moderate area of moderate intensity, decreased perfusion seen in the inferior region in stress and rest. Gated SPECT, EF 33% with akinesis, inferior region with also global hypokinesis. The patient infused Lexiscan with EKG changes suggestive of ischemia. SUMMARY: 1. Positive Lexiscan EKG. 2. The patient has a large infarction of moderate intensity in the inferior and inferior basal area with akinesis, inferior region with normal perfusion in the anterior, septal, lateral and apical regions. No significant reversibility or ischemia noted. Gated SPECT, EF 33% with akinesis, inferior territory inferior wall. JOB# [id number] CARRI/CARLOS MANUEL
--- NOTE | 2017-10-14 13:33 | Discharge Summary ---
Providers - Providers Date of Admission: 10/12/17 10:38 Date of discharge: 10/14/17 Attending physician: LUCY CASTILLO 10/12/17 10:38 Consult to Physician [CONS] Routine Consulting Provider: TONJA BARRAZA Reason For Exam: esrd Place consult to:: vitaly Notified:: service Was contact made?: Yes 10/12/17 11:24 Consult to Physician [CONS] Urgent Consulting Provider: GOLDEN FRANCES Reason For Exam: ESRD needs D Notified:: yes 10/12/17 17:22 Speech Therapy Evaluation and Treat [CONS] Routine Reason For Exam: difficulty swallowing 10/13/17 10:35 Consult to Physician [CONS] Routine Consulting Provider: REYNA PRATT Reason For Exam: pancytopenia Place consult to:: cristel Notified:: a service Phone number called:: [phone] Was contact made?: Yes If yes, spoke with:: kelly Time called:: 08:26 Physical Therapy Evaluation and Treat [CONS] Routine Comment: Reason For Exam: debility 10/13/17 11:19 Consult to Physician [CONS] Routine Consulting Provider: MALDONADO AGUSTIN Reason For Exam: elevated trop Place consult to:: [facility] heart Notified:: a service Phone number called:: [phone] Was contact made?: Yes If yes, spoke with:: rohan Time called:: 08:15 Primary care physician: BATTERY [employer]GER TESTER Hospitalization Condition: Stable Pertinent studies: Chest XRY Myocardial stress test 2D echo Hospital course: 42 year old man with a past medical history of end-stage renal disease on dialysis, hypertension, systolic CHF, EF of 10%, sp ICD, diabetes, status post right AKA who was at dialysis in a Supine position when he had a sudden syncopal episode. Upon arrival to the emergency room he was altered, confused, somnolence and lethargic. Patient unable to provide any further history, he states that he doesn't really remember what happened, but he was at dialysis and he passed out. He denied any chest pain, shortness of breath, palpitations or fever. He was admitted for further evaluation and management. Discharge diagnosis and management: /Dialysis Disequilibrium syndrome -likely from fluid removal with HD -continued HD as tolerated - symptom resolved on discharge /Syncope case discussed with cardiology CE elevated, but likely elevated due to CHF and ESRD (type 2 MO) Stress test was obtained echo shows severely reduced EF, 10-15%, but patient already has ICD no further workup indicated per cardiology /Pancytopenia -hematology consulted - h/H stable, will do further outpt f/u /Metabolic encephalopathy -most likely due to disequilibrium -supportive care /Diabetes mellitus Continue insulin therapy. Placed on Accu-Cheks before meals and daily at bedtime. /End stage renal disease Continue dialysis, case dw nephrology /Hypertension Controlled. Continue current medication /Systolic CHF with acute exacerbation fluid removal via HD cardiology consult appreciated /Dysphagia -s/p speech therapy eval, no sign of aspiration or difficulty swallowing /Debility PT consult /DVT ppx Placed on heparin as long as Platelet count stays above 50 Hospitalist Physical General appearance: Present: no acute distress, well-nourished - EENT Eyes: Present: PERRL ENT: hearing intact, clear oral mucosa - Neck Neck: Present: supple, normal ROM - Respiratory Respiratory effort: normal Respiratory: bilateral: CTA - Cardiovascular Heart Sounds: Present: S1 & S2. Absent: rub, click - Extremities Extremities: pulses symmetrical, No edema, abnormal (R AKA) Peripheral Pulses: within normal limits - Abdominal General gastrointestinal: Present: soft, non-tender, non-distended, normal bowel sounds Male genitourinary: Present: normal - Integumentary Integumentary: Present: clear, warm, dry - Musculoskeletal Musculoskeletal: strength equal bilaterally - Neurologic Neurologic: CNII-XII intact, moves all extremities Disposition: DC-01 TO HOME OR SELFCARE Time spent for discharge: 32 minutes Core Measure Documentation - Palliative Care Palliative Care/ Comfort Measures: Not Applicable - Core Measures Any of the following diagnoses?: history only Exam - Constitutional Vitals: Temp Pulse Resp BP Pulse Ox 98.1 F 80 16 140/86 97 10/14/17 12:16 10/14/17 12:33 10/14/17 12:16 10/14/17 12:33 10/14/17 12:16 Plan Activity: fall precautions Weight Bearing Status: Non-Weight Bearing Diet: renal Additional Instructions: f/u with cardiology in one week. Out pt f/u with hematology for further workup. Compliant with medications and HD Follow up with: PRIMARY CARE, [Primary Care Provider] - 3-5 Days Prescriptions: Aspirin [Aspirin BABY CHEW TAB] 81 mg PO QDAY #30 tab.chew Carvedilol [Coreg] 12.5 mg PO BID #60 tablet ISOSORBIDE MONOnitrate [Imdur ER] 30 mg PO QDAY #30 tablet
[2017-10-14] MEDS ORDERED: COREG PO SCH (22:00)
== END 2017-10-14 16:30 | disposition home or self-care (01) | DRG 280 ==
LOC: ED 07:03 → 4A 10:38
PROVIDERS: ADMIT Internal Medicine; ATTEND Internal Medicine
PROC: 5A1D70Z Performance of Urinary Filtration, Intermittent, Less than 6 Hours Per Day (ICD-10-PCS; principal; 2017-10-12)
DX: I21.A1 Myocardial infarction type 2 (principal); N18.6 End stage renal disease; G93.41 Metabolic encephalopathy; I50.23 Acute on chronic systolic (congestive) heart failure; D61.818 Other pancytopenia; I13.2 Hypertensive heart and chronic kidney disease with heart failure and with stage 5 chronic kidney disease, or end stage renal disease; E87.8 Other disorders of electrolyte and fluid balance, not elsewhere classified; E11.22 Type 2 diabetes mellitus with diabetic chronic kidney disease; R13.10 Dysphagia, unspecified; R53.81 Other malaise; K21.9 Gastro-esophageal reflux disease without esophagitis; I25.5 Ischemic cardiomyopathy; E78.5 Hyperlipidemia, unspecified; Z95.810 Presence of automatic (implantable) cardiac defibrillator; Z89.611 Acquired absence of right leg above knee; Z82.49 Family history of ischemic heart disease and other diseases of the circulatory system; Z79.4 Long term (current) use of insulin; Z79.899 Other long term (current) drug therapy; Z86.73 Personal history of transient ischemic attack (TIA), and cerebral infarction without residual deficits; Z95.5 Presence of coronary angioplasty implant and graft
CPT/HCPCS: 36415; 71010; 78452; 80053; 80061; 80320; 82140; 82962; 83735; 84443; 84484; 85025; 93005; 93010; 93017; 93306; A9270-GY; A9502; G0480; G8996-GN; G8997-GN; G8998-GN; J1644; J1815; J1818; J2405; J2785

== ENCOUNTER 2018-06-30 11:59 | Inpatient (IN) | payer MEDICARE ==
[2018-06-30] MEDS ORDERED: TYLENOL PO PRN (12:08)
[2018-06-30] MEDS ORDERED: SODIUM CHLORIDE FLUSH SYRINGE 10 ML IV PRN (12:08)
[2018-06-30] MEDS ORDERED: ZOFRAN IV PRN (12:08)
[2018-06-30] MEDS ORDERED: NACL 0.9% 100 ML IV PRN (12:15)
[2018-06-30] MEDS ORDERED: HEPARIN 10,000 UNITS/10 ML IV PRN (12:15)
--- NOTE | 2018-06-30 12:26 | History and Physical Report ---
History of Present Illness Date of examination: 06/30/18 Date of admission: 06/30/2018 Chief complaint: AICD exchange History of present illness: The pt is a 42-year-old male with multiple medical problems including end-stage renal disease on dialysis, severe coronary artery disease, ischemic cardiomyopathy ejection fraction of 15%, history of cardiac arrest, hyperlipidemia, hypertension, status post below the knee amputations. He is followed in our office by Dr. Chaudhari. He presented for direct admission for hemodialysis prior to AICD exchange scheduled for tomorrow, 07/01/2018. He has no current complaints. Past History Past Medical History: CAD, diabetes, dialysis, ESRD, heart failure, hypertension , hyperlipidemia Past Surgical History: Other (AICD; s/p BKD) Medications and Allergies Allergies Allergy/AdvReac Type Severity Reaction Status Date / Time No Known Allergies Allergy Verified 09/02/15 12:29 Home Medications Medication Instructions Recorded Confirmed Last Taken Type Insulin Glargine,Hum.rec.anlog 20 unit SQ QHS 06/21/14 08/24/14 07/22/14 History [Lantus] 20 units Sevelamer Carbonate [Renvela] 800 mg PO TIDWM 06/21/14 08/24/14 07/22/14 History 800mg Atorvastatin [Lipitor] 80 mg PO QHS 06/26/14 08/24/14 07/22/14 History 80mg Clopidogrel [Plavix] 75 mg PO QDAY 06/26/14 08/24/14 07/22/14 History 75mg Acyclovir [Zovirax Cap] 400 mg PO BID #10 cap 06/02/16 Unknown Rx Aspirin [Aspirin BABY CHEW TAB] 81 mg PO QDAY #30 tab.chew 10/14/17 Unknown Rx Carvedilol [Coreg] 12.5 mg PO BID #60 tablet 10/14/17 Unknown Rx ISOSORBIDE MONOnitrate [Imdur ER] 30 mg PO QDAY #30 tablet 10/14/17 Unknown Rx Active Meds: Active Medications Acetaminophen (Tylenol) 650 mg PO Q4H PRN PRN Reason: Pain MILD(1-3)/Fever >100.5/[place] Aspirin (Baby Aspirin) 81 mg PO QDAY [facility] Atorvastatin Calcium (Lipitor) 80 mg PO QHS [facility] Carvedilol (Coreg) 12.5 mg PO BID [facility] Heparin Sodium (Porcine) (Heparin 10,000 Units/10 Ml) 2,000 unit IV ELVIN PRN PRN Reason: hemodialysis Sodium Chloride (Nacl 0.9%) 100 mls @ 999 mls/hr IV ELVIN PRN PRN Reason: Hypotension Insulin Glargine (Lantus) 20 units SUB-Q QHS [facility] Isosorbide Mononitrate (Imdur) 30 mg PO QDAY [facility] Ondansetron HCl (Zofran) 4 mg IV Q8H PRN PRN Reason: Nausea And Vomiting Sevelamer Carbonate (Renvela) 800 mg PO TIDWM [facility] Sodium Chloride (Sodium Chloride Flush Syringe 10 Ml) 10 ml IV BID [facility] Sodium Chloride (Sodium Chloride Flush Syringe 10 Ml) 10 ml IV PRN PRN PRN Reason: LINE FLUSH Review of Systems All systems: negative (no current complaints) Physical Examination General appearance: no acute distress HEENT: Positive: PERRL, Normocephaly, Mucus Membranes Moist Neck: Positive: neck supple, trachea midline Cardiac: Positive: Reg Rate and Rhythm, S1/S2 Lungs: Positive: clear to auscultation Neuro: Positive: Grossly Intact Abdomen: Positive: Soft. Negative: Tender Skin: Positive: Clear. Negative: Rash, Wound Musculoskeletal: No Fluid Collection, No Pain, other (s/p BKA) Extremities: Absent: edema Results - Imaging and Cardiology Echo: report reviewed (09/2017: 1. Ejection fraction 10-15% 2. Moderate tricuspid regurgitation 3. Severe pulmonary hypertension ) Cardiac cath: report reviewed (10/07/2015: 1. Left main: Luminal irregularities 2. Left anterior descending artery: Mild diffuse disease 3. Ramus artery: High-grade ostial stenosis 80-90%, left circumflex artery: Severe diffuse disease 4. Right coronary artery: Proximal 70% stenosis 5. EF 25-30% ) EKG: pending Assessment and Plan Admit to telemetry. Resume home medication regimen. For HD today per nephrology. Plan for AICD exchange tomorrow. NPO after MN. Assessment and plan reviewed with pt. The patient has been seen in conjunction with Dr. Carbajal who agrees with the assessment and plan of care. - Patient Problems (1) Ischemic cardiomyopathy Status: Chronic (2) CAD (coronary artery disease) Status: Chronic (3) Chronic combined systolic and diastolic congestive heart failure Status: Chronic (4) Automatic implantable cardioverter-defibrillator in situ Status: Chronic (5) ESRD (end stage renal disease) on dialysis Status: Chronic (6) Diabetes mellitus Status: Chronic (7) Hypertension Status: Chronic (8) Moderate tricuspid regurgitation Status: Chronic (9) Pulmonary hypertension, moderate to severe Status: Chronic (10) S/P BKA (below knee amputation) Status: Chronic
[2018-06-30 14:16] LABS: Basophils % (Auto) 1.2 % (0.0-1.8); Eosinophils % (Auto) 1.3 % (0.0-4.3); Hematocrit 36.2 % (35.5-45.6); Hemoglobin 11.6 gm/dl (11.8-15.2); Lymphocytes # (Auto) 0.5 K/mm3 (1.2-5.4); Lymphocytes % (Auto) 15.4 % (13.4-35.0); Mean Corpuscular HGB Conc 32 % (32-34); Mean Corpuscular Hemoglobin 31 pg (28-32); Mean Corpuscular Volume 97 fl (84-94); Monocytes # (Auto) 0.3 K/mm3 (0.0-0.8); Monocytes % (Auto) 9.2 % (0.0-7.3); Platelet Count 92 K/mm3 (140-440); Red Blood Count 3.75 M/mm3 (3.65-5.03); Red Cell Distribution Width 18.3 % (13.2-15.2)
[2018-06-30 14:36] LABS: Calcium 9.7 mg/dL (8.4-10.2)
[2018-06-30] MEDS ORDERED: NACL 0.9 (PRIMING MACHINE ONLY DIALYSIS) MC ONE (18:55)
[2018-06-30] MEDS: RENVELA PO SCH (20:06)
[2018-06-30] MEDS: HumaLOG SUB-Q SCH ×2 (20:07→23:08)
[2018-06-30] MEDS ORDERED: LANTUS SUB-Q SCH (22:00)
[2018-06-30] MEDS: SODIUM CHLORIDE FLUSH SYRINGE 10 ML IV SCH (23:07)
[2018-06-30] MEDS: COREG PO SCH (23:08)
[2018-07-01] MEDS: D50W (25GM) Syringe IV PRN ×5 (05:32→22:44)
[2018-07-01 05:44] LABS: Basophils % (Auto) 0.8 % (0.0-1.8); Eosinophils % (Auto) 1.2 % (0.0-4.3); Hematocrit 38.3 % (35.5-45.6); Hemoglobin 12.5 gm/dl (11.8-15.2); Lymphocytes % (Auto) 15.9 % (13.4-35.0); Mean Corpuscular HGB Conc 33 % (32-34); Mean Corpuscular Hemoglobin 31 pg (28-32); Mean Corpuscular Volume 95 fl (84-94); Monocytes % (Auto) 7.4 % (0.0-7.3); Platelet Count 102 K/mm3 (140-440); Red Blood Count 4.02 M/mm3 (3.65-5.03); Red Cell Distribution Width 18.3 % (13.2-15.2)
[2018-07-01 05:45] LABS: Basophils # (Auto) 0.1 K/mm3 (0.0-0.1); Eosinophils # (Auto) 0.1 K/mm3 (0.0-0.4); Monocytes # (Auto) 0.5 K/mm3 (0.0-0.8)
[2018-07-01 05:53] LABS: Calcium 9.6 mg/dL (8.4-10.2); INR 1.49 (0.87-1.13)
[2018-07-01] MEDS: RENVELA PO SCH ×3 (08:19→17:35)
[2018-07-01] MEDS: HumaLOG SUB-Q SCH ×4 (08:19→23:33)
--- NOTE | 2018-07-01 08:59 | Consultation ---
History of Present Illness - Reason for Consult end stage renal disease - History of Present Illness Patient is a pleasant 43 y/o AAM with a PMHx significant for ESRD in the setting of DM, HTN, ischemic cardiomyoapthy and CAD, s/p AICD placement, who presented to the ED secondary to AICD exchange procedure. He was dialyzed yesterday per his outpatient MWF schedule. He dialyzes at [facility]. He has been HD dependant now for the past 12 years. He has a RUE AVF. He has no acute complaints at this time. labs noted this morning, and there are no acute needs for HD today. at bedside. Past History Past Medical History: CAD, diabetes, dialysis, ESRD, heart failure, hypertension , hyperlipidemia Past Surgical History: Other (AICD; s/p BKD) Social history: no significant social history Family history: diabetes, hypertension Medications and Allergies Allergies Allergy/AdvReac Type Severity Reaction Status Date / Time No Known Allergies Allergy Verified 09/02/15 12:29 Home Medications Medication Instructions Recorded Confirmed Last Taken Type Insulin Glargine,Hum.rec.anlog 20 unit SQ QHS 06/21/14 07/01/18 06/29/18 History [Lantus] Sevelamer Carbonate [Renvela] 800 mg PO TIDWM 06/21/14 07/01/18 06/30/18 History Atorvastatin [Lipitor] 80 mg PO QHS 06/26/14 07/01/18 06/29/18 History Clopidogrel [Plavix] 75 mg PO QDAY 06/26/14 07/01/18 06/29/18 History Acyclovir [Zovirax Cap] 400 mg PO BID #10 cap 06/02/16 07/01/18 06/30/18 Rx Aspirin [Aspirin BABY CHEW TAB] 81 mg PO QDAY #30 tab.chew 10/14/17 07/01/1807/08 Rx Carvedilol [Coreg] 12.5 mg PO BID #60 tablet 10/14/17 07/01/18 06/30/18 Rx ISOSORBIDE MONOnitrate [Imdur ER] 30 mg PO QDAY #30 tablet 10/14/17 07/01/1807/08 Rx Bacitracin 500 units BID 07/01/18 07/01/18 06/30/18 History Memantine HCl 5 mg PO QHS 07/01/18 07/01/18 06/29/18 History Sertraline [Zoloft] 25 mg PO QDAY 07/01/18 07/01/18 06/29/18 History Vit B Comp No.3/Folic/C/Biotin 1 each PO QDAY 07/01/18 07/01/18 06/30/18 History [Diamond-[place]miber[place] Rx Tablet] Active Meds: Active Medications Acetaminophen (Tylenol) 650 mg PO Q4H PRN PRN Reason: Pain MILD(1-3)/Fever >100.5/[place] Aspirin (Baby Aspirin) 81 mg PO QDAY [facility] Atorvastatin Calcium (Lipitor) 80 mg PO QHS [facility] Last Admin: 06/30/18 23:07 Dose: 80 mg Carvedilol (Coreg) 12.5 mg PO BID [facility] Last Admin: 06/30/18 23:08 Dose: 12.5 mg Dextrose (D50w (25gm) Syringe) 50 ml IV PRN PRN PRN Reason: Hypoglycemia Last Admin: 07/01/18 08:43 Dose: 50 ml Heparin Sodium (Porcine) (Heparin 10,000 Units/10 Ml) 2,000 unit IV ELVIN PRN PRN Reason: hemodialysis Last Admin: 06/30/18 15:20 Dose: 2,000 unit Sodium Chloride (Nacl 0.9%) 100 mls @ 999 mls/hr IV ELVIN PRN PRN Reason: Hypotension Insulin Glargine (Lantus) 20 units SUB-Q QMID [facility] Last Admin: 06/30/18 23:06 Dose: 20 units Insulin Human Lispro (Humalog) 0 unit SUB-Q [facility]; Protocol Last Admin: 07/01/18 08:19 Dose: Not Given Isosorbide Mononitrate (Imdur) 30 mg PO QDAY [facility] Ondansetron HCl (Zofran) 4 mg IV Q8H PRN PRN Reason: Nausea And Vomiting Sevelamer Carbonate (Renvela) 800 mg PO TIDWM [facility] Last Admin: 07/01/18 08:19 Dose: Not Given Sodium Chloride (Sodium Chloride Flush Syringe 10 Ml) 10 ml IV BID [facility] Last Admin: 06/30/18 23:07 Dose: 10 ml Sodium Chloride (Sodium Chloride Flush Syringe 10 Ml) 10 ml IV PRN PRN PRN Reason: LINE FLUSH Review of Systems All systems: negative Exam - Vital Signs Vital signs: Vital Signs Temp Pulse Resp BP 97.2 F L 81 18 146/91 06/30/18 14:30 06/30/18 14:30 06/30/18 14:30 06/30/18 14:30 - General Appearance General appearance: well-developed, well-nourished, appears stated age EENT: ATNC, PERRL, mucous membranes moist Neck: Present: neck supple, trachea midline Respiratory: Clear to Ascultation, Normal Exam Heart: regular, normal heart rate, S1S2, no murmurs, other (RUE AVF with (+)T/B) Gastrointestinal: Present: normal, normoactive bowel sounds Integumentary: no rash, warm and dry Neurologic: no focal deficit, no asterixis, alert and oriented x3 Musculoskeletal: Present: deferred Psychiatric: mood/affect appropriate, cooperative Results - Lab Results 07/01/18 05:34 07/01/18 05:34 Most recent lab results Calcium 9.6 mg/dL (8.4-10.2) 07/01/18 05:34 Assessment and Plan - Patient Problems (1) End-stage renal disease needing dialysis Current Visit: No Status: Acute Plan to address problem: Patient was dialyzed yesterday per his outpatient MWF regimen. No acute needs for HD today. Labs noted this am. Next HD session tomorrow. (2) Hyperkalemia Current Visit: No Status: Acute Plan to address problem: Improved after HD session yesterday. Labs noted. Please ensure patient is on low K diet. (3) Anemia in CKD (chronic kidney disease) Current Visit: Yes Status: Acute Plan to address problem: H/H levels noted, and at goal. No acute needs for ALEM therapy at present. Will monitor. (4) Secondary hyperparathyroidism (of renal origin) Current Visit: Yes Status: Acute Plan to address problem: Restarted on home phos binders at present. (5) Automatic implantable cardioverter-defibrillator in situ Current Visit: No Status: Chronic Plan to address problem: Plan for AICD exchange today. Further management per cardiology recommendations. (6) Diabetes mellitus Current Visit: No Status: Chronic Plan to address problem: Management per primary team. (7) Hypertension Current Visit: No Status: Chronic Plan to address problem: Blood pressures are stable with current regimen.
[2018-07-01] MEDS ORDERED: BABY ASPIRIN PO SCH (10:00)
--- NOTE | 2018-07-01 11:03 | Progress Note ---
Assessment and Plan S/p HD yesterday. Await AICD exchange today. The patient has been seen in conjunction with Dr. Esteban who agrees with the assessment and plan of care. - Patient Problems (1) Ischemic cardiomyopathy Current Visit: No Status: Chronic (2) CAD (coronary artery disease) Current Visit: No Status: Chronic (3) Chronic combined systolic and diastolic congestive heart failure Current Visit: No Status: Chronic (4) Automatic implantable cardioverter-defibrillator in situ Current Visit: No Status: Chronic (5) ESRD (end stage renal disease) on dialysis Current Visit: No Status: Chronic (6) Diabetes mellitus Current Visit: No Status: Chronic (7) Hypertension Current Visit: No Status: Chronic (8) Moderate tricuspid regurgitation Current Visit: No Status: Chronic (9) Pulmonary hypertension, moderate to severe Current Visit: No Status: Chronic (10) S/P BKA (below knee amputation) Current Visit: No Status: Chronic Subjective Date of service: 07/01/18 Principal diagnosis: CMP Interval history: pt resting in bed, no current complaints. Objective Last Vital Signs Temp 97.3 F L 07/01/18 04:47 Pulse 62 07/01/18 08:00 Resp 20 07/01/18 07:59 BP 144/92 07/01/18 07:59 Pulse Ox 95 07/01/18 08:00 - Physical Examination HEENT: Positive: PERRL, Normocephaly, Mucus Membranes Moist Neck: Positive: neck supple, trachea midline Cardiac: Positive: Reg Rate and Rhythm, S1/S2 Lungs: Positive: Decreased Breath Sounds Neuro: Positive: Grossly Intact Abdomen: Positive: Soft. Negative: Tender Skin: Positive: Clear. Negative: Rash, Wound Musculoskeletal: No Fluid Collection, No Pain, other (s/p BKA) Extremities: Absent: edema - Labs and Meds Coagulation 07/01/18 Range/Units 05:34 PT 18.9 H (12.2-14.9) Sec. INR 1.49 H (0.87-1.13) CBC 06/30/18 07/01/18 Range/Units 13:55 05:34 WBC 3.5 L 6.2 (4.5-11.0) K/mm3 RBC 3.75 4.02 (3.65-5.03) M/mm3 Hgb 11.6 L 12.5 (11.8-15.2) gm/dl Hct 36.2 38.3 (35.5-45.6) % Plt Count 92 L 102 L (140-440) K/mm3 Lymph # 0.5 L 1.0 L (1.2-5.4) K/mm3 [place] # 0.3 0.5 (0.0-0.8) K/mm3 Eos # 0.0 0.1 (0.0-0.4) K/mm3 Baso # 0.0 0.1 (0.0-0.1) K/mm3 Comprehensive Metabolic Panel 06/30/18 07/01/18 Range/Units 13:55 05:34 Sodium 141 139 (137-145) mmol/L Potassium 5.1 H 3.9 D (3.6-5.0) mmol/L Chloride 98.5 95.6 L (98-107) mmol/L Carbon Dioxide 27 29 (22-30) mmol/L BUN 43 H 29 H (9-20) mg/dL Creatinine 7.6 H 5.3 H (0.8-1.5) mg/dL Glucose 158 H 262 H (75-100) mg/dL Calcium 9.7 9.6 (8.4-10.2) mg/dL - Imaging and Cardiology EKG: pending Echo: report reviewed (09/2017: 1. Ejection fraction 10-15% 2. Moderate tricuspid regurgitation 3. Severe pulmonary hypertension ) Cardiac cath: report reviewed (10/07/2015: 1. Left main: Luminal irregularities 2. Left anterior descending artery: Mild diffuse disease 3. Ramus artery: High-grade ostial stenosis 80-90%, left circumflex artery: Severe diffuse disease 4. Right coronary artery: Proximal 70% stenosis 5. EF 25-30% )
[2018-07-01] MEDS ORDERED: NACL 0.9% 1 ML, VANCOMYCIN VIAL 1,000 MG IR ONE (11:57)
--- NOTE | 2018-07-01 13:27 | Event Note ---
Date: 07/01/18 Pt brought down to OPPU for procedure preparation and was noted to have AMS, not responding to verbal stimuli, grimacing to painful stimuli. Of note, he was noted to have fluctuations in blood sugar this AM and received D50, most recent BG is 127. D/w Dr. Mccollum and AICD exchange cancelled. Neurology consulted - d /w Dr. Thrasher. Will obtain STAT head CT and transfer service to hospitalists for further eval/management of diabetes and AMS. D/w Dr. Hernandez. Gaurav RUVALCABA, HERMELINDA / DR. AGUSTIN
--- NOTE | 2018-07-01 14:01 | Consultation ---
History of Present Illness Consult date: 07/01/18 Requesting physician: BUCKY RUVALCABA Reason for Consult: altered mental status History of present illness: This is a 43 year old male with history of hypertension, diabetes, ESRD on dialysis since 2007, severe cardiomyopathy with EF of 15%, cardiac arrest in 2014, amutation of right leg (BKA), presented for replacement of cardiac defibrillator. He received dialysis yesterday in preparation for the procedure. He was brought down for the procedure this a.m. and found to be unresponsive. The procedure was cancelled and he was taken to CT on the way back to his room. Spoke at length to family who tell me he was responsive to them this a.m. He lives in a nursing facility but is capable of most ADLs, gets up out of bed and to a chair independently. He can stand on the left leg. Following his cardiac arrest in 2014, he was said to have had a stroke. They do not recall weakness on one side. They also mentioned that after the arrest a 72 hour EEG had been run, and the neurologist at that time told him there had been a seizure on the tracing. Anticonvulsants were not started. There isd also a history of fluctuation in blood sugar this a.m. from 40 to 120. Past History Past Medical History: No medical history ( ), CAD, diabetes, dialysis, ESRD, heart failure, hypertension, hyperlipidemia Past Surgical History: Other (AICD; s/p BKD) Social history: no significant social history, smoking ( ), alcohol abuse ( ) Family history: CAD, diabetes, hypertension, stroke Medications and Allergies Allergies Allergy/AdvReac Type Severity Reaction Status Date / Time No Known Allergies Allergy Verified 09/02/15 12:29 Home Medications Medication Instructions Recorded Confirmed Last Taken Type Insulin Glargine,Hum.rec.anlog 20 unit SQ QHS 06/21/14 07/01/18 06/29/18 History [Lantus] Sevelamer Carbonate [Renvela] 800 mg PO TIDWM 06/21/14 07/01/18 06/30/18 History Atorvastatin [Lipitor] 80 mg PO QHS 06/26/14 07/01/18 06/29/18 History Clopidogrel [Plavix] 75 mg PO QDAY 06/26/14 07/01/18 06/29/18 History Acyclovir [Zovirax Cap] 400 mg PO BID #10 cap 06/02/16 07/01/18 06/30/18 Rx Aspirin [Aspirin BABY CHEW TAB] 81 mg PO QDAY #30 tab.chew 10/14/17 07/01/1807/08 Rx Carvedilol [Coreg] 12.5 mg PO BID #60 tablet 10/14/17 07/01/18 06/30/18 Rx ISOSORBIDE MONOnitrate [Imdur ER] 30 mg PO QDAY #30 tablet 10/14/17 07/01/1807/08 Rx Bacitracin 500 units BID 07/01/18 07/01/18 06/30/18 History Memantine HCl 5 mg PO QHS 07/01/18 07/01/18 06/29/18 History Sertraline [Zoloft] 25 mg PO QDAY 07/01/18 07/01/18 06/29/18 History Vit B Comp No.3/Folic/C/Biotin 1 each PO QDAY 07/01/18 07/01/18 06/30/18 History [Diamond-[place] Rx Tablet] Active Meds: Active Medications Acetaminophen (Tylenol) 650 mg PO Q4H PRN PRN Reason: Pain MILD(1-3)/Fever >100.5/[place] Atorvastatin Calcium (Lipitor) 80 mg PO QHS [facility] Last Admin: 06/30/18 23:07 Dose: 80 mg Carvedilol (Coreg) 12.5 mg PO BID [facility] Last Admin: 06/30/18 23:08 Dose: 12.5 mg Dextrose (D50w (25gm) Syringe) 50 ml IV PRN PRN PRN Reason: Hypoglycemia Last Admin: 07/01/18 11:38 Dose: 50 ml Heparin Sodium (Porcine) (Heparin 10,000 Units/10 Ml) 2,000 unit IV ELVIN PRN PRN Reason: hemodialysis Last Admin: 06/30/18 15:20 Dose: 2,000 unit Sodium Chloride (Nacl 0.9%) 100 mls @ 999 mls/hr IV ELVIN PRN PRN Reason: Hypotension Insulin Human Lispro (Humalog) 0 unit SUB-Q [facility]; Protocol Last Admin: 07/01/18 08:19 Dose: Not Given Isosorbide Mononitrate (Imdur) 30 mg PO QDAY [facility] Ondansetron HCl (Zofran) 4 mg IV Q8H PRN PRN Reason: Nausea And Vomiting Sevelamer Carbonate (Renvela) 800 mg PO TIDWM [facility] Last Admin: 07/01/18 08:19 Dose: Not Given Sodium Chloride (Sodium Chloride Flush Syringe 10 Ml) 10 ml IV BID [facility] Last Admin: 06/30/18 23:07 Dose: 10 ml Sodium Chloride (Sodium Chloride Flush Syringe 10 Ml) 10 ml IV PRN PRN PRN Reason: LINE FLUSH Review of Systems ROS unobtainable: due to mental status Physical Examination - Vital Signs Vital Signs: Vital Signs Temp Pulse Resp BP 97.2 F L 81 18 146/91 06/30/18 14:30 06/30/18 14:30 06/30/18 14:30 06/30/18 14:30 - Physical Exam Narrative exam: Lying in bed, unresponsive to voice or chest rub. HEENT - no inflammation noted. neck supple Chest - clear. Heart - reg. rate soft sounds. Abdomen - soft, nontemder. Extremities - left lower extremity with no edema or lesions. Right stump clean. Neurological - unresponsive. groans occasionally. grimaces to pain. no vocalization. Does not follow commands. CN's - manually opened the patient's eyes. They are midline. Face is symmetric. Motor - No spontaneous movement. Withdraws arms to painful stimuli in upper extremities. Does not move left lower extremity to painful stimuli. Reflexes - trace throughout. Sensory - grimaces to painful stimuli in upper extremities but not to painful stimuli in left lower extremity. Results - Laboratory Findings CBC and BMP: 07/01/18 05:34 07/01/18 05:34 Abnormal Lab Findings: Abnormal Labs 06/30/18 06/30/18 06/30/18 13:55 13:55 19:09 WBC 3.5 L Hgb 11.6 L MCV 97 H RDW 18.3 H Plt Count 92 L [place] % (Auto) 9.2 H Lymph # 0.5 L Seg Neutrophils % 72.9 H PT INR Potassium 5.1 H Chloride BUN 43 H Creatinine 7.6 H Glucose 158 H POC Glucose 170 H 06/30/18 07/01/18 07/01/18 21:19 05:02 05:34 WBC Hgb MCV 95 H RDW 18.3 H Plt Count 102 L [place] % (Auto) 7.4 H Lymph # 1.0 L Seg Neutrophils % 74.7 H PT INR Potassium Chloride BUN Creatinine Glucose POC Glucose 150 H < 40 L 07/01/18 07/01/18 07/01/18 05:34 05:34 08:39 WBC Hgb MCV RDW Plt Count [place] % (Auto) Lymph # Seg Neutrophils % PT 18.9 H INR 1.49 H Potassium Chloride 95.6 L BUN 29 H Creatinine 5.3 H Glucose 262 H POC Glucose 61 L 07/01/18 07/01/18 07/01/18 11:28 12:03 12:09 WBC Hgb MCV RDW Plt Count [place] % (Auto) Lymph # Seg Neutrophils % PT INR Potassium Chloride BUN Creatinine Glucose POC Glucose 42 L 141 H 127 H Assessment and Plan 43 year old male with severe CAD and cardiomyopathy, diabetes, hypertension, hyperlipidemia, presented for replacement of AICD, but became unresponsive before the procedure could be done. CT scan is remarkable only for atrophy. Differential includes metabolic (glucose fluctuation), seizure, stroke. Plan - Will run D5W for now to get the glucose up and stable. EEG MRI brain
[2018-07-01] MEDS: SODIUM CHLORIDE FLUSH SYRINGE 10 ML IV SCH ×2 (14:12→23:33)
[2018-07-01] MEDS: COREG PO SCH ×2 (14:12→23:34)
[2018-07-01] MEDS: IMDUR PO SCH (14:12)
--- NOTE | 2018-07-01 14:20 | Cat Scan Report ---
FINAL REPORT EXAM: CT HEAD/BRAIN WO CON HISTORY: AMS COMPARISON: CT of the head performed on 05/12/2016 TECHNIQUE: Multiple contiguous axial images were obtained from the skullbase to the vertex without administration of IV contrast. FINDINGS: There is no parenchymal hemorrhage or extra-axial fluid collection. There is no mass or mass effect. There is no acute territorial infarct. There is a small area of decreased attenuation in the left cerebellum, unchanged since the previous study, that may represent encephalomalacia. The ventricles are midline. The subarachnoid spaces and basilar cisterns are clear. There is no skull fracture. The paranasal sinuses and mastoid air cells are clear. Again seen are calcifications of the bilateral distal vertebral arteries and distal internal carotid arteries. IMPRESSION: No acute intracranial abnormality. Encephalomalacia in the left cerebellar hemisphere, unchanged since the previous study, likely reflective of prior infarct.
--- NOTE | 2018-07-01 14:57 | Event Note ---
Date: 07/01/18 Cancelled request for MRI brain as patient has an implantable device.
[2018-07-01] MEDS ORDERED: D5W 1,000 ML IV SCH (15:00)
[2018-07-01] MEDS ORDERED: APRESOLINE IV PRN (23:07)
--- NOTE | 2018-07-02 07:32 | Event Note ---
Date: 07/01/18 See dictated H/p in Reports Patient being transferred to our service by Ms Grayson
[2018-07-02] MEDS: D50W (25GM) Syringe IV PRN (07:47)
[2018-07-02] MEDS: HumaLOG SUB-Q SCH ×4 (08:00→22:07)
[2018-07-02] MEDS: IMDUR PO SCH (09:31)
[2018-07-02] MEDS: PLAVIX PO SCH (09:31)
[2018-07-02] MEDS: RENVELA PO SCH ×3 (09:31→18:46)
[2018-07-02] MEDS: SODIUM CHLORIDE FLUSH SYRINGE 10 ML IV SCH ×2 (09:32→22:07)
[2018-07-02] MEDS: ZOVIRAX PO SCH ×2 (09:32→22:06)
[2018-07-02] MEDS: ANTIBIOTIC OINT TP SCH ×2 (09:32→22:05)
[2018-07-02] MEDS ORDERED: NACL 0.9% 100 ML IV PRN (09:32)
[2018-07-02] MEDS: COREG PO SCH ×2 (09:46→22:05)
[2018-07-02] MEDS ORDERED: ZOLOFT PO SCH (10:00)
[2018-07-02] MEDS ORDERED: BACITRACIN 500 UNIT TRANSDERMA SCH (10:00)
--- NOTE | 2018-07-02 10:12 | Progress Note ---
Assessment and Plan Assessment and plan: Patient is 43 yo man with a plethora of early end stage co-morbidities including ESRD on hemodialysis, severe Cardiomyopathy EF 15% with cardiac arrest 2015 s/p AICD, PVD with right bka, moderate severe pulmonary hypertension , CHF, DM type 2, dyslipidemia, Dementia and hypertension who was admitted by Cardiology as a direct admission on 07/01/18 for AICD exchange after hemodialysis. After receiving hemodialysis, he went for the procedure and was found AMS/unresponsive. His blood sugars was 40. Cardiology transferred patient to the Hospitalist service. Ischemic cardiomyopathy with suspected AICD malfunction: exchange tomorrow Chronic combined systolic and diastolic congestive heart failure: continue medical management ESRD (end stage renal disease) on dialysis: Nephrology consulted Diabetes mellitus type 2 on Insulin with PVD s/p right bka: use SSI History Interval history: Patient was seen and examined. Follow-up on current diagnosis for Cardiomyopathy , AICD exchange. Overnight uneventful. Patient is not talking, his sister Jordana is at bedside. She states to being POA, and that patient has dementia. Imaging, nursing note, chart, labs and old chart reviewed. Jordana says patient has no kids and no . Hospitalist Physical - Physical exam Narrative exam: GEN: chronically disabled, awake alert, nonverbal HEENT: NCAT, EOMI, PERRL, OP Clear NECK: supple, no adenopathy, no thyromegaly, no JVD CVS/HEART: RRR, normal S1S2, pulses present bilaterally CHEST/LUNGS: CTA B, Symmetrical chest expansion, good air entry bilaterally GI/Abdomen: soft, NTND, good bowel sounds, no guarding or rebound /Bladder: no suprapubic tenderness, no CVA or paraspinal tenderness EXT/Skin: no c/c/e, no obvious rash MSK: FROM x 4 Neuro: CN 2-12 grossly intact, no new focal deficits Psych: calm and confused - Constitutional Vitals: Temp Pulse Resp BP Pulse Ox 97.4 F L 79 18 148/96 96 07/02/18 05:36 07/02/18 05:36 07/02/18 05:36 07/02/18 05:36 07/02/18 05:36 General appearance: Present: no acute distress Results - Labs CBC & Chem 7: 07/01/18 05:34 07/01/18 23:20 Labs: Laboratory Last Values WBC 6.2 K/mm3 (4.5-11.0) 07/01/18 05:34 RBC 4.02 M/mm3 (3.65-5.03) 07/01/18 05:34 Hgb 12.5 gm/dl (11.8-15.2) 07/01/18 05:34 Hct 38.3 % (35.5-45.6) 07/01/18 05:34 MCV 95 fl (84-94) H 07/01/18 05:34 MCH 31 pg (28-32) 07/01/18 05:34 MCHC 33 % (32-34) 07/01/18 05:34 RDW 18.3 % (13.2-15.2) H 07/01/18 05:34 Plt Count 102 K/mm3 (140-440) L 07/01/18 05:34 Lymph % (Auto) 15.9 % (13.4-35.0) 07/01/18 05:34 [place] % (Auto) 7.4 % (0.0-7.3) H 07/01/18 05:34 Eos % (Auto) 1.2 % (0.0-4.3) 07/01/18 05:34 Baso % (Auto) 0.8 % (0.0-1.8) 07/01/18 05:34 Lymph # 1.0 K/mm3 (1.2-5.4) L 07/01/18 05:34 [place] # 0.5 K/mm3 (0.0-0.8) 07/01/18 05:34 Eos # 0.1 K/mm3 (0.0-0.4) 07/01/18 05:34 Baso # 0.1 K/mm3 (0.0-0.1) 07/01/18 05:34 Seg Neutrophils % 74.7 % (40.0-70.0) H 07/01/18 05:34 Seg Neutrophils # 4.7 K/mm3 (1.8-7.7) 07/01/18 05:34 PT 18.9 Sec. (12.2-14.9) H 07/01/18 05:34 INR 1.49 (0.87-1.13) H 07/01/18 05:34 Sodium 139 mmol/L (137-145) 07/01/18 05:34 Potassium 3.9 mmol/L (3.6-5.0) D 07/01/18 05:34 Chloride 95.6 mmol/L (98-107) L 07/01/18 05:34 Carbon Dioxide 29 mmol/L (22-30) 07/01/18 05:34 Anion Gap 18 mmol/L 07/01/18 05:34 BUN 29 mg/dL (9-20) H 07/01/18 05:34 Creatinine 5.3 mg/dL (0.8-1.5) H 07/01/18 05:34 Estimated GFR 14 ml/min 07/01/18 05:34 BUN/Creatinine Ratio 5 % 07/01/18 05:34 Glucose 116 mg/dL (75-100) H 07/01/18 23:20 POC Glucose 91 (70-105) 07/02/18 05:10 Calcium 9.6 mg/dL (8.4-10.2) 07/01/18 05:34
--- NOTE | 2018-07-02 11:46 | Progress Note ---
Assessment and Plan 43 year old male with severe CAD and cardiomyopathy, diabetes, hypertension, hyperlipidemia, presented for replacement of AICD, but became unresponsive before the procedure could be done. CT scan is remarkable only for atrophy. AMS most likely due to hypoglycemia, now resolved. Plan - Sliding scale for now. Will cancel EEG. Subjective Date of service: 07/02/18 Principal diagnosis: CMP Interval history: 43 year old male with history of severe CHF, hypertension, diabetes, ESRD, hyperlipidemia, rt. BKA, presented for AICD exchange. In the a.m. blood sugars were low and patient was unresponsive. IV D-5/W was started and the patient gradually returned to baseline. He [facility] in a jail, but is cared for by his siter who feels that he is back to baseline at this point. Objective - Exam Narrative Exam: Lying in bed, unresponsive to voice or chest rub. HEENT - no inflammation noted. neck supple Chest - clear. Heart - reg. rate soft sounds. Abdomen - soft, nontemder. Extremities - left lower extremity with no edema or lesions. Right stump clean. Neurological - lethargic but opens eyes to command and follows simple commands. 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 Face symmetric. tongue midline. Motor - Moves arms and left leg well to command Reflexes - trace throughout. Sensory intact to touch and sharp sensation. - Vital Sign Vital Signs - 12hr 07/02/18 07/02/18 00:09 05:36 Temperature 97.4 F L Pulse Rate 72 79 Respiratory 20 18 Rate Blood Pressure 153/96 148/96 O2 Sat by Pulse 98 96 Oximetry - Laboratory Findings CBC and BMP: 07/01/18 05:34 07/01/18 23:20 Abnormal Lab Findings: Abnormal Labs 06/30/18 06/30/18 06/30/18 13:55 13:55 19:09 WBC 3.5 L Hgb 11.6 L MCV 97 H RDW 18.3 H Plt Count 92 L [place] % (Auto) 9.2 H Lymph # 0.5 L Seg Neutrophils % 72.9 H PT INR Potassium 5.1 H Chloride BUN 43 H Creatinine 7.6 H Glucose 158 H POC Glucose 170 H 06/30/18 07/01/18 07/01/18 21:19 05:02 05:34 WBC Hgb MCV 95 H RDW 18.3 H Plt Count 102 L [place] % (Auto) 7.4 H Lymph # 1.0 L Seg Neutrophils % 74.7 H PT INR Potassium Chloride BUN Creatinine Glucose POC Glucose 150 H < 40 L 07/01/18 07/01/18 07/01/18 05:34 05:34 08:39 WBC Hgb MCV RDW Plt Count [place] % (Auto) Lymph # Seg Neutrophils % PT 18.9 H INR 1.49 H Potassium Chloride 95.6 L BUN 29 H Creatinine 5.3 H Glucose 262 H POC Glucose 61 L 07/01/18 07/01/18 07/01/18 11:28 12:03 12:09 WBC Hgb MCV RDW Plt Count [place] % (Auto) Lymph # Seg Neutrophils % PT INR Potassium Chloride BUN Creatinine Glucose POC Glucose 42 L 141 H 127 H 07/01/18 07/01/18 07/01/18 13:11 15:43 22:33 WBC Hgb MCV RDW Plt Count [place] % (Auto) Lymph # Seg Neutrophils % PT INR Potassium Chloride BUN Creatinine Glucose 56 L POC Glucose 51 L < 40 L 07/01/18 07/02/18 07/02/18 23:20 00:12 01:59 WBC Hgb MCV RDW Plt Count [place] % (Auto) Lymph # Seg Neutrophils % PT INR Potassium Chloride BUN Creatinine Glucose 116 H POC Glucose 62 L 49 L 07/02/18 07/02/18 03:11 09:42 WBC Hgb MCV RDW Plt Count [place] % (Auto) Lymph # Seg Neutrophils % PT INR Potassium Chloride BUN Creatinine Glucose POC Glucose 65 L 173 H
--- NOTE | 2018-07-02 15:33 | Progress Note ---
Assessment and Plan For AICD exchange tomorrow. NPO after MN. The patient has been seen in conjunction with Dr. Esteban who agrees with the assessment and plan of care. - Patient Problems (1) Ischemic cardiomyopathy Current Visit: No Status: Chronic (2) CAD (coronary artery disease) Current Visit: No Status: Chronic (3) Chronic combined systolic and diastolic congestive heart failure Current Visit: No Status: Chronic (4) Automatic implantable cardioverter-defibrillator in situ Current Visit: No Status: Chronic (5) ESRD (end stage renal disease) on dialysis Current Visit: No Status: Chronic (6) Diabetes mellitus Current Visit: No Status: Chronic (7) Hypertension Current Visit: No Status: Chronic (8) Moderate tricuspid regurgitation Current Visit: No Status: Chronic (9) Pulmonary hypertension, moderate to severe Current Visit: No Status: Chronic (10) S/P BKA (below knee amputation) Current Visit: No Status: Chronic Subjective Date of service: 07/02/18 Principal diagnosis: CMP Interval history: pt resting in bed, no current complaints. sister at bedside states that pt's mental status has returned to baseline. Objective Last Vital Signs Temp 97.7 F 07/02/18 11:50 Pulse 76 07/02/18 13:15 Resp 20 07/02/18 11:50 BP 146/92 07/02/18 13:15 Pulse Ox 96 07/02/18 05:36 - Physical Examination General: No Apparent Distress HEENT: Positive: PERRL, Normocephaly, Mucus Membranes Moist Neck: Positive: neck supple, trachea midline Cardiac: Positive: Reg Rate and Rhythm, S1/S2 Lungs: Positive: Decreased Breath Sounds Neuro: Positive: Grossly Intact Abdomen: Positive: Soft. Negative: Tender Skin: Positive: Clear. Negative: Rash, Wound Musculoskeletal: No Fluid Collection, No Pain, other (s/p BKA) Extremities: Absent: edema - Labs and Meds Comprehensive Metabolic Panel 07/01/18 Range/Units 23:20 Glucose 116 H (75-100) mg/dL - Imaging and Cardiology EKG: pending Echo: report reviewed (09/2017: 1. Ejection fraction 10-15% 2. Moderate tricuspid regurgitation 3. Severe pulmonary hypertension ) Cardiac cath: report reviewed (10/07/2015: 1. Left main: Luminal irregularities 2. Left anterior descending artery: Mild diffuse disease 3. Ramus artery: High-grade ostial stenosis 80-90%, left circumflex artery: Severe diffuse disease 4. Right coronary artery: Proximal 70% stenosis 5. EF 25-30% )
[2018-07-02] MEDS ORDERED: NON-FORMULARY (Atorvastatin [Lipitor] 80 MG) PO SCH (22:00)
[2018-07-02] MEDS ORDERED: MEMANTINE HCL 5 MG PO SCH (22:00)
[2018-07-02] MEDS ORDERED: NAMENDA PO SCH (22:00)
--- NOTE | 2018-07-02 22:32 | Progress Note ---
Assessment and Plan - Patient Problems (1) Anemia in CKD (chronic kidney disease) Current Visit: Yes Status: Acute Plan to address problem: Epogen on Dialysis (2) End-stage renal disease needing dialysis Current Visit: No Status: Acute Plan to address problem: S/p Hemodialysis with no complications (3) Altered mental status Current Visit: No Status: Chronic Qualifiers: Altered mental status type: somnolence Qualified Code(s): R40.0 - Somnolence Plan to address problem: Encephalopathy sec to Hypoglycemia resolved. Back to baseline (4) Automatic implantable cardioverter-defibrillator in situ Current Visit: No Status: Chronic Plan to address problem: Plans for Exchange placed on hold (5) Hypertensive chronic kidney disease with stage 5 chronic kidney disease or end stage renal disease Current Visit: Yes Status: Acute Plan to address problem: Fu BP (6) Type 2 diabetes mellitus with diabetic nephropathy Current Visit: Yes Status: Acute Plan to address problem: Blood sugar management by Geovanni CRAIN MD Subjective Date of service: 07/02/18 Principal diagnosis: CMP Interval history: Patient seen lying in bed. No C/o Objective - Exam Narrative Exam: Middle aged AAM in NAD NCAT, CVS S1S2 RR L Clear Abd soft, ND, NT Ext No edema N Awake - Vital Signs Vital signs: Vital Signs - 12hr 07/02/18 07/02/18 07/02/18 11:50 12:00 12:15 Temperature 97.7 F Pulse Rate 78 78 78 Respiratory 20 Rate Blood Pressure 132/88 144/92 144/88 O2 Sat by Pulse Oximetry 07/02/18 07/02/18 07/02/18 12:30 12:45 13:00 Temperature Pulse Rate 76 76 76 Respiratory Rate Blood Pressure 142/88 144/90 144/88 O2 Sat by Pulse Oximetry 07/02/18 07/02/18 07/02/18 13:15 13:30 13:45 Temperature Pulse Rate 76 76 75 Respiratory Rate Blood Pressure 146/92 146/92 158/87 O2 Sat by Pulse Oximetry 07/02/18 07/02/18 07/02/18 14:00 14:15 14:30 Temperature Pulse Rate 75 76 76 Respiratory Rate Blood Pressure 150/88 146/85 144/82 O2 Sat by Pulse Oximetry 07/02/18 07/02/18 07/02/18 14:45 15:00 15:30 Temperature 97.7 F Pulse Rate 78 78 78 Respiratory 20 Rate Blood Pressure 138/46 138/52 138/46 O2 Sat by Pulse Oximetry 07/02/18 07/02/18 07/02/18 15:52 20:59 22:05 Temperature 98.6 F 97.5 F L Pulse Rate 77 83 83 Respiratory 16 18 Rate Blood Pressure 125/74 145/87 145/87 O2 Sat by Pulse 97 97 Oximetry - Lab 07/01/18 05:34 07/01/18 23:20 Most recent lab results Calcium 9.6 mg/dL (8.4-10.2) 07/01/18 05:34
[2018-07-03 07:09] LABS: Basophils # (Auto) 0.1 K/mm3 (0.0-0.1); Basophils % (Auto) 1.9 % (0.0-1.8); Eosinophils # (Auto) 0.1 K/mm3 (0.0-0.4); Eosinophils % (Auto) 2.1 % (0.0-4.3); Hematocrit 33.3 % (35.5-45.6); Hemoglobin 11.1 gm/dl (11.8-15.2); Lymphocytes # (Auto) 0.5 K/mm3 (1.2-5.4); Mean Corpuscular HGB Conc 33 % (32-34); Mean Corpuscular Hemoglobin 31 pg (28-32); Mean Corpuscular Volume 94 fl (84-94); Monocytes # (Auto) 0.3 K/mm3 (0.0-0.8); Monocytes % (Auto) 8.9 % (0.0-7.3); Platelet Count 100 K/mm3 (140-440); Red Blood Count 3.56 M/mm3 (3.65-5.03); Red Cell Distribution Width 17.9 % (13.2-15.2)
[2018-07-03 07:18] LABS: INR 1.54 (0.87-1.13)
--- NOTE | 2018-07-03 07:23 | Progress Note ---
Assessment and Plan - Patient Problems (1) End-stage renal disease needing dialysis Current Visit: No Status: Chronic Plan to address problem: Patient was dialyzed yesterday per his outpatient MWF regimen. No acute needs for HD today. Next HD session tomorrow. (2) Hyperkalemia Current Visit: No Status: Acute Plan to address problem: Improved after HD session yesterday. Labs noted. Please ensure patient is on low K diet. (3) Anemia in CKD (chronic kidney disease) Current Visit: Yes Status: Chronic Qualifiers: Chronic kidney disease stage: on chronic dialysis Qualified Code(s): N18.6 - End stage renal disease; D63.1 - Anemia in chronic kidney disease; Z99.2 - Dependence on renal dialysis Plan to address problem: H/H levels noted, and at goal. No acute needs for ALEM therapy at present. Will monitor. (4) Secondary hyperparathyroidism (of renal origin) Current Visit: Yes Status: Chronic Plan to address problem: Restarted on home phos binders at present. (5) Automatic implantable cardioverter-defibrillator in situ Current Visit: No Status: Chronic Plan to address problem: Plan for AICD exchange today. Further management per cardiology recommendations. (6) Diabetes mellitus Current Visit: No Status: Chronic Plan to address problem: Management per primary team. (7) Hypertension Current Visit: No Status: Chronic Plan to address problem: Blood pressures are stable with current regimen. Subjective Date of service: 07/03/18 Principal diagnosis: CMP Interval history: Plan for AICD exchange today. Tolerated HD session yesterday. No acute issues overnight. Objective - Vital Signs Vital signs: Vital Signs - 12hr 07/02/18 07/02/18 07/02/18 19:21 20:59 22:05 Temperature 97.5 F L Pulse Rate 83 83 83 Pulse Rate [ Left Radial] Respiratory 18 Rate Blood Pressure 145/87 145/87 O2 Sat by Pulse 97 Oximetry 07/02/18 07/03/18 22:30 00:51 Temperature 97.9 F Pulse Rate 74 Pulse Rate [ 83 Left Radial] Respiratory 18 20 Rate Blood Pressure 101/74 O2 Sat by Pulse 97 97 Oximetry - General Appearance General appearance: well-developed, well-nourished, appears stated age EENT: ATNC, PERRL Neck: no JVD, no thyromegaly Respiratory: Present: Clear to Ascultation, Normal Exam Cardiology: regular, normal heart rate Gastrointestinal: normal, normoactive bowel sounds Integumentary: no rash, warm and dry Neurologic: no focal deficit, no asterixis Musculoskeletal: other (-edema) Psychiatric: mood/affect appropriate, cooperative - Lab 07/03/18 06:19 07/01/18 23:20 Most recent lab results Calcium 9.6 mg/dL (8.4-10.2) 07/01/18 05:34 - Allied health notes Allied health notes reviewed: nursing
[2018-07-03 07:28] LABS: Calcium 9.3 mg/dL (8.4-10.2)
[2018-07-03] MEDS: HumaLOG SUB-Q SCH (07:30)
[2018-07-03] MEDS: RENVELA PO SCH (08:00)
[2018-07-03] MEDS: PLAVIX PO SCH (10:00)
--- NOTE | 2018-07-03 11:20 | Progress Note ---
Assessment and Plan For AICD exchange today. The patient has been seen in conjunction with Dr. Esteban who agrees with the assessment and plan of care. - Patient Problems (1) Ischemic cardiomyopathy Current Visit: No Status: Chronic (2) CAD (coronary artery disease) Current Visit: No Status: Chronic (3) Chronic combined systolic and diastolic congestive heart failure Current Visit: No Status: Chronic (4) Automatic implantable cardioverter-defibrillator in situ Current Visit: No Status: Chronic (5) ESRD (end stage renal disease) on dialysis Current Visit: No Status: Chronic (6) Diabetes mellitus Current Visit: No Status: Chronic (7) Hypertension Current Visit: No Status: Chronic (8) Moderate tricuspid regurgitation Current Visit: No Status: Chronic (9) Pulmonary hypertension, moderate to severe Current Visit: No Status: Chronic (10) S/P BKA (below knee amputation) Current Visit: No Status: Chronic Subjective Date of service: 07/03/18 Principal diagnosis: CMP Interval history: pt resting in bed, no current complaints. sister at bedside states that pt appears to remain at baseline mental status. has been NPO since UT for AICD exchange today. Objective Last Vital Signs Temp 97.9 F 07/03/18 00:51 Pulse 74 07/03/18 00:51 Resp 20 07/03/18 00:51 BP 101/74 07/03/18 00:51 Pulse Ox 97 07/03/18 00:51 - Physical Examination General: No Apparent Distress, Other (withdrawn, nonverbal) HEENT: Positive: PERRL, Normocephaly, Mucus Membranes Moist Neck: Positive: neck supple, trachea midline Cardiac: Positive: Reg Rate and Rhythm, S1/S2 Lungs: Positive: Decreased Breath Sounds Neuro: Positive: Grossly Intact Abdomen: Positive: Soft. Negative: Tender Skin: Positive: Clear. Negative: Rash, Wound Musculoskeletal: No Fluid Collection, No Pain, other (s/p BKA) Extremities: Absent: edema - Labs and Meds Coagulation 07/03/18 Range/Units 06:19 PT 19.4 H (12.2-14.9) Sec. INR 1.54 H (0.87-1.13) CBC 07/03/18 Range/Units 06:19 WBC 3.4 L (4.5-11.0) K/mm3 RBC 3.56 L (3.65-5.03) M/mm3 Hgb 11.1 L (11.8-15.2) gm/dl Hct 33.3 L (35.5-45.6) % Plt Count 100 L (140-440) K/mm3 Lymph # 0.5 L (1.2-5.4) K/mm3 [place] # 0.3 (0.0-0.8) K/mm3 Eos # 0.1 (0.0-0.4) K/mm3 Baso # 0.1 (0.0-0.1) K/mm3 Comprehensive Metabolic Panel 07/03/18 Range/Units 06:19 Sodium 139 (137-145) mmol/L Potassium 4.3 (3.6-5.0) mmol/L Chloride 96.6 L (98-107) mmol/L Carbon Dioxide 27 (22-30) mmol/L BUN 26 H (9-20) mg/dL Creatinine 5.5 H (0.8-1.5) mg/dL Glucose 119 H (75-100) mg/dL Calcium 9.3 (8.4-10.2) mg/dL - Imaging and Cardiology EKG: pending Echo: report reviewed (09/2017: 1. Ejection fraction 10-15% 2. Moderate tricuspid regurgitation 3. Severe pulmonary hypertension ) Cardiac cath: report reviewed (10/07/2015: 1. Left main: Luminal irregularities 2. Left anterior descending artery: Mild diffuse disease 3. Ramus artery: High-grade ostial stenosis 80-90%, left circumflex artery: Severe diffuse disease 4. Right coronary artery: Proximal 70% stenosis 5. EF 25-30% ) - Allied health notes Allied health notes reviewed: nursing
[2018-07-03 11:31] VITALS: BP 143/84
[2018-07-03] MEDS ORDERED: NACL 0.9% 1,000 ML, VANCOMYCIN VIAL 1,000 MG IR ONE (14:00)
[2018-07-03] MEDS ORDERED: ANCEF/STERILE WATER 2 GM/20 ML IV ONE (14:23)
[2018-07-03] MEDS ORDERED: NACL 0.9% 500 ML IR ONE (14:31)
[2018-07-03] MEDS ORDERED: MARCAINE 0.5% INFILTRATI ONE (14:31)
[2018-07-03] MEDS ORDERED: XYLOCAINE 1% 20 mL ONE (14:31)
[2018-07-03] MEDS ORDERED: VERSED ONE (14:33)
[2018-07-03] MEDS ORDERED: NACL 0.9% 500 ML 500 ML ONE (14:35)
[2018-07-03] MEDS: SUBLIMAZE ONE ×2 (14:36→14:45)
[2018-07-03] MEDS ORDERED: BENADRYL ONE (14:46)
--- NOTE | 2018-07-03 15:09 | Progress Note ---
Assessment and Plan Assessment and plan: Patient is 43 yo man with a plethora of early end stage co-morbidities including ESRD on hemodialysis, severe Cardiomyopathy EF 15% with cardiac arrest 2015 s/p AICD, PVD with right bka, moderate severe pulmonary hypertension , CHF, DM type 2, dyslipidemia, Dementia and hypertension who was admitted by Cardiology as a direct admission on 07/01/18 for AICD exchange after hemodialysis. After receiving hemodialysis, he went for the procedure and was found AMS/unresponsive. His blood sugars was 40. Cardiology transferred patient to the Hospitalist service. Ischemic cardiomyopathy with suspected AICD malfunction: battery exchange today , d/c once cleared by Cardiology Chronic combined systolic and diastolic congestive heart failure: continue medical management ESRD (end stage renal disease) on dialysis: Nephrology consulted and he had hemodialysis on Saturday Diabetes mellitus type 2 on Insulin with PVD s/p right bka: use SSI History Interval history: Patient was seen and examined. Follow-up on current diagnosis for Cardiomyopathy , AICD battery exchange. Overnight uneventful. Patient is not talking, his sister Jordana is at bedside. She states to being POA, and that patient has dementia. Imaging, nursing note, chart, labs and old chart reviewed. Jordana says patient has no kids and no . Hospitalist Physical - Physical exam Narrative exam: GEN: chronically disabled, awake alert, nonverbal HEENT: NCAT, EOMI, PERRL, OP Clear NECK: supple, no adenopathy, no thyromegaly, no JVD CVS/HEART: RRR, normal S1S2, pulses present bilaterally CHEST/LUNGS: CTA B, Symmetrical chest expansion, good air entry bilaterally GI/Abdomen: soft, NTND, good bowel sounds, no guarding or rebound /Bladder: no suprapubic tenderness, no CVA or paraspinal tenderness EXT/Skin: no c/c/e, no obvious rash MSK: FROM x 4 Neuro: CN 2-12 grossly intact, no new focal deficits Psych: calm and confused - Constitutional Vitals: Temp Pulse Resp BP Pulse Ox 97.9 F 78 20 143/84 99 07/03/18 08:00 07/03/18 08:00 07/03/18 08:00 07/03/18 08:00 07/03/18 08:00 General appearance: Present: no acute distress Results - Labs CBC & Chem 7: 07/03/18 06:19 07/03/18 06:19 Labs: Laboratory Last Values WBC 3.4 K/mm3 (4.5-11.0) L 07/03/18 06:19 RBC 3.56 M/mm3 (3.65-5.03) L 07/03/18 06:19 Hgb 11.1 gm/dl (11.8-15.2) L 07/03/18 06:19 Hct 33.3 % (35.5-45.6) L 07/03/18 06:19 MCV 94 fl (84-94) 07/03/18 06:19 MCH 31 pg (28-32) 07/03/18 06:19 MCHC 33 % (32-34) 07/03/18 06:19 RDW 17.9 % (13.2-15.2) H 07/03/18 06:19 Plt Count 100 K/mm3 (140-440) L 07/03/18 06:19 Lymph % (Auto) 16.0 % (13.4-35.0) 07/03/18 06:19 [place] % (Auto) 8.9 % (0.0-7.3) H 07/03/18 06:19 Eos % (Auto) 2.1 % (0.0-4.3) 07/03/18 06:19 Baso % (Auto) 1.9 % (0.0-1.8) H 07/03/18 06:19 Lymph # 0.5 K/mm3 (1.2-5.4) L 07/03/18 06:19 [place] # 0.3 K/mm3 (0.0-0.8) 07/03/18 06:19 Eos # 0.1 K/mm3 (0.0-0.4) 07/03/18 06:19 Baso # 0.1 K/mm3 (0.0-0.1) 07/03/18 06:19 Seg Neutrophils % 71.1 % (40.0-70.0) H 07/03/18 06:19 Seg Neutrophils # 2.4 K/mm3 (1.8-7.7) 07/03/18 06:19 PT 19.4 Sec. (12.2-14.9) H 07/03/18 06:19 INR 1.54 (0.87-1.13) H 07/03/18 06:19 Sodium 139 mmol/L (137-145) 07/03/18 06:19 Potassium 4.3 mmol/L (3.6-5.0) 07/03/18 06:19 Chloride 96.6 mmol/L (98-107) L 07/03/18 06:19 Carbon Dioxide 27 mmol/L (22-30) 07/03/18 06:19 Anion Gap 20 mmol/L 07/03/18 06:19 BUN 26 mg/dL (9-20) H 07/03/18 06:19 Creatinine 5.5 mg/dL (0.8-1.5) H 07/03/18 06:19 Estimated GFR 14 ml/min 07/03/18 06:19 BUN/Creatinine Ratio 5 % 07/03/18 06:19 Glucose 119 mg/dL (75-100) H 07/03/18 06:19 POC Glucose 126 (70-105) H 07/03/18 13:15 Calcium 9.3 mg/dL (8.4-10.2) 07/03/18 06:19
--- NOTE | 2018-07-03 15:11 | Discharge Summary ---
Providers - Providers Date of Admission: 06/30/18 12:57 Date of discharge: 07/03/18 Attending physician: KAREN BALL 06/30/18 12:08 Consult to Physician [CONS] Routine Comment: Consulting Provider: TONJA BARRAZA Physician Instructions: needs HD Reason For Exam: ESRD on HD 07/01/18 12:13 Consult to Physician [CONS] Stat Comment: Consulting Provider: IMANI LOTT Physician Instructions: Reason For Exam: AMS 07/01/18 13:22 Consult to Physician [CONS] Routine Comment: Consulting Provider: MARGARITA SANCHEZ Physician Instructions: Reason For Exam: transfer service; DM; AMS Primary care physician: JANNA BURTON Hospitalization Condition: Stable Hospital course: Patient is 43 yo man with a plethora of early end stage co-morbidities including ESRD on hemodialysis, severe Cardiomyopathy EF 15% with cardiac arrest 2015 s/p AICD, PVD with right bka, moderate severe pulmonary hypertension , CHF, DM type 2, dyslipidemia, Dementia and hypertension who was admitted by Cardiology as a direct admission on 07/01/18 for AICD exchange after hemodialysis. After receiving hemodialysis, he went for the procedure and was found AMS/unresponsive. His blood sugars was 40. Cardiology transferred patient to the Hospitalist service. Ischemic cardiomyopathy with suspected AICD malfunction: battery exchange today , d/c once cleared by Cardiology Chronic combined systolic and diastolic congestive heart failure: continue medical management ESRD (end stage renal disease) on dialysis: Nephrology consulted and he had hemodialysis on Saturday Diabetes mellitus type 2 on Insulin with PVD s/p right bka: use SSI Disposition: DC-01 TO HOME OR SELFCARE Time spent for discharge: 31 minutes Core Measure Documentation - Palliative Care Palliative Care/ Comfort Measures: Not Applicable - Core Measures Any of the following diagnoses?: none - VTE Discharge Requirements Deep Vein Thrombosis/Pulmonary Embolism Present on Admission: No Has pt received <5 days of overlap therapy or INR<2.0: No Anticoagulant overlap therapy prescribed at discharge: No Contraindication No Overlap Therapy order at DC: Not Indicated Exam - Physical Exam Narrative exam: GEN: chronically disabled, awake alert, nonverbal HEENT: NCAT, EOMI, PERRL, OP Clear NECK: supple, no adenopathy, no thyromegaly, no JVD CVS/HEART: RRR, normal S1S2, pulses present bilaterally CHEST/LUNGS: CTA B, Symmetrical chest expansion, good air entry bilaterally GI/Abdomen: soft, NTND, good bowel sounds, no guarding or rebound /Bladder: no suprapubic tenderness, no CVA or paraspinal tenderness EXT/Skin: no c/c/e, no obvious rash MSK: FROM x 4 Neuro: CN 2-12 grossly intact, no new focal deficits Psych: calm and confused - Constitutional Vitals: Temp Pulse Resp BP Pulse Ox 97.9 F 78 20 143/84 99 07/03/18 08:00 07/03/18 08:00 07/03/18 08:00 07/03/18 08:00 07/03/18 08:00 Plan Activity: up only with assistance, fall precautions, other (no strenous activity unless cleared by PCP) Diet: renal Follow up with: JANNA BURTON DO [Primary Care Provider] - 7 Days PEREZ YUAN MD [Staff Physician] - 7 Days
[2018-07-03] MEDS ORDERED: VANCOMYCIN VIAL 1,000 MG in NACL 0.9% 1,000 ML IRRIGATION ONE (15:17)
[2018-07-03] MEDS ORDERED: VANCOMYCIN/NS 1 GM/250 ML 1 GM/250 ML BAG IV SCH (18:00)
[2018-07-03] MEDS ORDERED: ZOVIRAX PO SCH (18:00)
== END 2018-07-03 18:30 | disposition home or self-care (01) | DRG 245 ==
LOC: UNDOADMIN 11:59 → 4A 11:59
PROVIDERS: ADMIT Internal Medicine Cardiovascular Disease; ATTEND Internal Medicine
PROC: 5A1D70Z Performance of Urinary Filtration, Intermittent, Less than 6 Hours Per Day (ICD-10-PCS; 2018-06-30)
PROC: 5A1D70Z Performance of Urinary Filtration, Intermittent, Less than 6 Hours Per Day (ICD-10-PCS; 2018-07-02)
PROC: 0JH608Z Insertion of Defibrillator Generator into Chest Subcutaneous Tissue and Fascia, Open Approach (ICD-10-PCS; principal; 2018-07-03)
PROC: 0JPT0PZ Removal of Cardiac Rhythm Related Device from Trunk Subcutaneous Tissue and Fascia, Open Approach (ICD-10-PCS; 2018-07-03)
DX: T82.191A Other mechanical complication of cardiac pulse generator (battery), initial encounter (principal); N18.6 End stage renal disease; I50.42 Chronic combined systolic (congestive) and diastolic (congestive) heart failure; I13.2 Hypertensive heart and chronic kidney disease with heart failure and with stage 5 chronic kidney disease, or end stage renal disease; N25.81 Secondary hyperparathyroidism of renal origin; E87.5 Hyperkalemia; I25.5 Ischemic cardiomyopathy; E11.22 Type 2 diabetes mellitus with diabetic chronic kidney disease; E11.51 Type 2 diabetes mellitus with diabetic peripheral angiopathy without gangrene; F03.90 Unspecified dementia, unspecified severity, without behavioral disturbance, psychotic disturbance, mood disturbance, and anxiety; Y83.8 Other surgical procedures as the cause of abnormal reaction of the patient, or of later complication, without mention of misadventure at the time of the procedure; I25.10 Atherosclerotic heart disease of native coronary artery without angina pectoris; I07.1 Rheumatic tricuspid insufficiency; I27.20 Pulmonary hypertension, unspecified; D63.1 Anemia in chronic kidney disease; E11.21 Type 2 diabetes mellitus with diabetic nephropathy; E78.5 Hyperlipidemia, unspecified; Z82.49 Family history of ischemic heart disease and other diseases of the circulatory system; Z83.3 Family history of diabetes mellitus; Z99.2 Dependence on renal dialysis; Z86.74 Personal history of sudden cardiac arrest; Z95.810 Presence of automatic (implantable) cardiac defibrillator; Z89.511 Acquired absence of right leg below knee; Y92.89 Other specified places as the place of occurrence of the external cause; Z82.3 Family history of stroke; Z79.82 Long term (current) use of aspirin; Z79.899 Other long term (current) drug therapy; Z79.4 Long term (current) use of insulin
CPT/HCPCS: 33262; 36415; 70450; 80048; 82947; 82962; 85025; 85610; 93005; 93010; A9270-GY; C1722; J0360; J0690; J1200; J1644; J1815; J2250; J3010; J3370; J7030; J7040; J7070

== ENCOUNTER 2018-10-29 09:42 | Day surgery (SDC) | payer MEDICARE ==
[~2018-10-29 09:42] MED LIST: ANCEF/STERILE WATER 2 GM/20 ML 2 GM/20 ML SYRINGE IV NR; NACL 0.9% 1000 ML 1,000 ML IV SCH
[2018-10-29 10:42] LABS: INR 1.41 (0.87-1.13)
[2018-10-29 10:43] LABS: Partial Thromboplastin Time 35.5 Sec. (24.2-36.6)
--- NOTE | 2018-10-29 11:36 | Short Stay Summary ---
Short Stay Documentation Date of service: 10/29/18 - History Principal diagnosis: malfunctioning dialysis Past Medical History: dialysis, ESRD Past Surgical History: Other (RUE fistula) Social history: no significant social history - Allergies and Medications Current Medications: Allergies No Known Allergies Allergy (Verified 09/02/15 12:29) Home Medications Medication Instructions Recorded Confirmed Last Taken Type Insulin Glargine,Hum.rec.anlog 20 unit SQ QHS 06/21/14 07/14/18 06/29/18 History [Lantus] Sevelamer Carbonate [Renvela] 800 mg PO TIDWM 06/21/14 07/14/18 06/30/18 History Atorvastatin [Lipitor] 80 mg PO QHS 06/26/14 07/14/18 06/29/18 History Clopidogrel [Plavix] 75 mg PO QDAY 06/26/14 07/14/18 06/29/18 History Acyclovir [Zovirax Cap] 400 mg PO BID #10 cap 06/02/16 07/14/18 06/30/18 Rx Aspirin [Aspirin BABY CHEW TAB] 81 mg PO QDAY #30 tab.chew 10/14/17 07/14/18 06/29/18 Rx Carvedilol [Coreg] 12.5 mg PO BID #60 tablet 10/14/17 07/14/18 06/30/18 Rx ISOSORBIDE MONOnitrate [Imdur ER] 30 mg PO QDAY #30 tablet 10/14/17 07/14/18 06/29/18 Rx Bacitracin 500 units BID 07/01/18 07/14/18 06/30/18 History Memantine HCl 5 mg PO QHS 07/01/18 07/14/18 06/29/18 History Sertraline [Zoloft] 25 mg PO QDAY 07/01/18 07/14/18 06/29/18 History Vit B Comp No.3/Folic/C/Biotin 1 each PO QDAY 07/01/18 07/14/18 06/30/18 History [Diamond-[facility]ly Rx Tablet] Active Medications Cefazolin Sodium (Ancef/Sterile Water 2 Gm/20 Ml) 2 gm in 20 mls @ 80 mls/hr IV PREOP NR; Protocol Stop: 10/29/18 23:00 Sodium Chloride (Nacl 0.9% 1000 Ml) 1,000 mls @ 42 mls/hr IV DIRECT ALANA - Physical exam General appearance: no acute distress HEENT: Atraumatic Lungs: Normal air movement Breasts: deferred Heart: Regular rate Male Genitourinary: deferred Rectal Exam: deferred Extremities: abnormal (rue pseudoaneurysm) - Brief post op/procedure progress note Date of procedure: 10/29/18 Pre-op diagnosis: malfunctioning dialysis access Post-op diagnosis: same Procedure: RUE fistulagram with venoplasty Anesthesia: local Surgeon: PEARL NAVA Estimated blood loss: none Condition: stable - Disposition Condition at discharge: Good Disposition: DC-01 TO HOME OR SELFCARE Short Stay Discharge Plan Activity: advance as tolerated Weight Bearing Status: Weight Bear as Tolerated Diet: regular Wound: keep clean and dry, per your surgeon's advice Follow up with: JANNA BURTON DO [Primary Care Provider] - 7 Days
[2018-10-29] MEDS ORDERED: SUBLIMAZE ONE (12:52)
[2018-10-29] MEDS ORDERED: VERSED ONE (12:52)
[2018-10-29] MEDS ORDERED: HEPARIN/NS 5000 UNIT/500ML(CATH LAB) 1,000 ML IR ONE (12:53)
[2018-10-29] MEDS ORDERED: HEPARIN 10,000 UNITS/10 ML ONE (12:53)
[2018-10-29] MEDS ORDERED: XYLOCAINE 2% INFILTRATI ONE (12:53)
[2018-10-29] MEDS ORDERED: NACL 0.9% 250ML 250 ML ONE (12:53)
--- NOTE | 2018-10-29 14:10 | Operative Report ---
Operative Report Operative Report: Exam: Right upper extremity fistulogram, venoplasty Clinical indication: Patient with known functioning dialysis access, prolonged bleeding and enlarging pseudoaneurysms Date: 10/29/2018 Procedure: Following an explanation of the risks, benefits and alternatives; written informed consent was obtained. The patient was brought to the angiographic suite and placed in supine position on the examination table. A palpable thrill is present on the right upper extremity fistula. 2 large dilated pseudoaneurysms are present with skin thinning. Cannulation accesses are present in the superior pseudoaneurysm. The patient's right upper arm was prepped and draped in the usual sterile fashion. 1% lidocaine was used for anesthesia. Under ultrasound sound guidance, the fistula was cannulated towards the venous outflow using a 7 cm 21-gauge needle. A 0.018 guidewire was advanced centrally. The needle was removed and a micro-sheath placed. The 0.018 guidewire was exchanged for a 0.035 guidewire and the micro-sheath exchanged for a 7 Swazi vascular sheath. Contrast injected through the sheath demonstrates filling of both pseudoaneurysms without mural thrombus. There is some delay of the contrast out of the pseudoaneurysms. 20-30% narrowing is present distal to the most superior aneurysm. The venous outflow distal to this is patent. The central veins appear patent. A pacemaker lead is present extending from the left into the SVC. A vertebral catheter and 0.035 guidewire were then manipulated to the fistula. The vertebral catheter was removed and angioplasty was performed using an 8 mm balloon. Postinjury plus imaging demonstrated residual less than 10% stenosis. The guidewire and catheters were removed. Sheath was removed and hemostasis achieved using 4-0 Vicryl suture and Dermabond. The patient tolerated the procedure well. There were no immediate post procedure complications. Impression: Right upper extremity fistulogram demonstrating enlarged pseudoaneurysms with skin thinning and a minimal amount of stenosis just distal to the pseudoaneurysms. Venoplasty of this minimal stenosis was performed. The patient however will need surgical revision of these pseudoaneurysms and the patient was scheduled for preoperative visit with Dr. Marlow on Sunday 11/05.
[2018-10-29 14:47] VITALS: BP 165/108
== END 2018-10-29 15:00 | disposition home or self-care (01) ==
LOC: CATHLABREC 09:42
PROVIDERS: ATTEND Radiology Diagnostic Radiology
DX: T82.858A Stenosis of other vascular prosthetic devices, implants and grafts, initial encounter (principal); E11.22 Type 2 diabetes mellitus with diabetic chronic kidney disease; I13.2 Hypertensive heart and chronic kidney disease with heart failure and with stage 5 chronic kidney disease, or end stage renal disease; I50.9 Heart failure, unspecified; N18.6 End stage renal disease; E11.51 Type 2 diabetes mellitus with diabetic peripheral angiopathy without gangrene; E11.649 Type 2 diabetes mellitus with hypoglycemia without coma; I25.10 Atherosclerotic heart disease of native coronary artery without angina pectoris; E78.00 Pure hypercholesterolemia, unspecified; K21.9 Gastro-esophageal reflux disease without esophagitis; I25.2 Old myocardial infarction; H54.61 Unqualified visual loss, right eye, normal vision left eye; Z79.82 Long term (current) use of aspirin; Z79.4 Long term (current) use of insulin; Z79.899 Other long term (current) drug therapy; Z79.01 Long term (current) use of anticoagulants; Z98.49 Cataract extraction status, unspecified eye; Z95.810 Presence of automatic (implantable) cardiac defibrillator; Z89.511 Acquired absence of right leg below knee; Z86.73 Personal history of transient ischemic attack (TIA), and cerebral infarction without residual deficits; Z98.890 Other specified postprocedural states; Y83.2 Surgical operation with anastomosis, bypass or graft as the cause of abnormal reaction of the patient, or of later complication, without mention of misadventure at the time of the procedure; Z83.3 Family history of diabetes mellitus; Z82.49 Family history of ischemic heart disease and other diseases of the circulatory system; Z80.3 Family history of malignant neoplasm of breast
CPT/HCPCS: 36415; 36902; 84132; 85610; 85730; 99156; 99157; C1725; C1751; C1769; C1894; J1644; J2250; J3010; J7050; Q9967

== ENCOUNTER 2018-11-27 05:44 | Day surgery (SDC) | payer MEDICARE ==
[2018-11-27] MEDS ORDERED: ANCEF/STERILE WATER 2 GM/20 ML 2 GM/20 ML SYRINGE IV NR (06:00)
[2018-11-27] MEDS ORDERED: NACL 0.9% 1000 ML 1,000 ML IV SCH (06:00)
[2018-11-27 06:45] LABS: Basophils % (Auto) 0.3 % (0.0-1.8); Eosinophils # (Auto) 0.1 K/mm3 (0.0-0.4); Eosinophils % (Auto) 2.2 % (0.0-4.3); Hemoglobin 10.4 gm/dl (11.8-15.2); Lymphocytes # (Auto) 0.4 K/mm3 (1.2-5.4); Lymphocytes % (Auto) 12.3 % (13.4-35.0); Mean Corpuscular HGB Conc 32 % (32-34); Mean Corpuscular Volume 92 fl (84-94); Monocytes # (Auto) 0.3 K/mm3 (0.0-0.8); Monocytes % (Auto) 8.3 % (0.0-7.3); Platelet Count 119 K/mm3 (140-440); Red Blood Count 3.49 M/mm3 (3.65-5.03); Red Cell Distribution Width 17.9 % (13.2-15.2)
[2018-11-27 06:57] LABS: Calcium 8.9 mg/dL (8.4-10.2)
--- NOTE | 2018-11-27 07:12 | Anesthesia Consultation ---
Anesthesia Consult and Med Hx Date of service: 11/27/18 - Airway Intubation Access Assessment: Possibly Difficult - Pulmonary Exam CTA: Yes - Cardiac Exam Cardiac Exam: RRR Anesthetic Concerns: Pt uncooperative. Unable to evaluate airway. No loose teeth per family. - Pre-Operative Health Status ASA Pre-Surgery Classification: ASA4 Proposed Anesthetic Plan: General - Pulmonary Hx Smoking: No Hx Asthma: No COPD: No Hx Pneumonia: No - Cardiovascular System Hx Hypertension: Yes Hx Coronary Artery Disease: Yes (Diffuse severe disease) Hx Heart Attack/AMI: Yes (Cardiac arrest during office procedure in 2014) Hx Percutaneous Transluminal Coronary Angioplasty (PTCA): Yes (PTCA x1) Hx Internal Defibrillator: Yes (2008) Hx Peripheral Vascular Disease: Yes - Central Nervous System Hx Neuromuscular Disorder: No Hx Seizures: Yes CVA: Yes (2014) Hx Psychiatric Problems: Yes (Annopxic brain injury. Pt in long-term.) - Gastrointestinal Hx Gastroesophageal Reflux Disease: Yes - Endocrine Hx End Stage Renal Disease: Yes (Last dialysis 11/25/18) Hx Insulin Dependent Diabetes: Yes - Hematic Hx Anemia: Yes (Hgb 10.7 Plts 119K K4.3) - Other Systems Hx Cancer: No - Additional Comments Anesthesia Medical History Comments: Patient suffered cardiac arest in 2015 with annoxic brain injury He has severe diffuse CAD with EF 15% and AICD. He has severe pul hypertension. Patients family is aware that patient has major risk from surgery and anesthesia.
[2018-11-27] MEDS ORDERED: PEPCID IV NR (08:00)
[2018-11-27] MEDS ORDERED: SUBLIMAZE ONE (08:15)
[2018-11-27] MEDS ORDERED: XYLOCAINE MPF 2% ONE (08:15)
[2018-11-27] MEDS ORDERED: AMIDATE IV ONE (08:15)
[2018-11-27] MEDS ORDERED: MARCAINE-EPI 0.5%-1:200,000 INFILTRATI ONE ×2 (08:19→10:22)
[2018-11-27] MEDS ORDERED: NACL 0.9% 500 ML 500 ML ONE (08:19)
[2018-11-27] MEDS ORDERED: HEPARIN 10,000 UNITS/10 ML ONE ×2 (08:19→10:36)
[2018-11-27] MEDS ORDERED: XYLOCAINE 1% 20 mL ONE (08:19)
[2018-11-27] MEDS ORDERED: ZEMURON IV ONE (08:19)
[2018-11-27] MEDS ORDERED: XYLOCAINE 1%/ EPI 1:100,000 INFILTRATI ONE (08:20)
[2018-11-27] MEDS ORDERED: SODIUM BICARBONATE ONE (08:20)
[2018-11-27] MEDS ORDERED: NEO SYNEPHRINE ONE (08:21)
[2018-11-27] MEDS ORDERED: MARCAINE 0.5% INFILTRATI ONE (08:21)
[2018-11-27] MEDS ORDERED: DILAUDID IV PRN (08:50)
[2018-11-27] MEDS ORDERED: ZOFRAN IV PRN (08:50)
--- NOTE | 2018-11-27 08:50 | Anesthesia Day of Surgery ---
Anesthesia Day of Surgery - Day of Surgery Patient Examined: Yes Patient H&P Reviewed: Yes Patient is NPO: Yes Beta Blockers: No Cardiac Clearance: Yes
[2018-11-27] MEDS ORDERED: NACL 0.9% 100 ML ONE (10:04)
[2018-11-27] MEDS ORDERED: NACL 0.9% IR ONE (10:23)
[2018-11-27] MEDS ORDERED: HEPARIN 10,000 UNITS/10 ML 2,000 UNIT in NACL 0.9% 500 ML 500 ML IR ONE (10:23)
[2018-11-27] MEDS ORDERED: ZOFRAN ONE (11:59)
[2018-11-27] MEDS ORDERED: DDAVP 20 MCG in NACL 0.9% 50 ML IV ONE (12:00)
--- NOTE | 2018-11-27 12:25 | Post Operative Note ---
Pre-op diagnosis: mechanical complication of AV fistula Post-op diagnosis: same Findings: Large pseudoaneurysms with heavy wall calcification involving both the arterial and venous cannulation sites. Successfully removed. The cath placed for interval dialysis. Good positioning. Ready for use. Procedure: Revision of AV fistula right upper extremity Insertion of permacath right internal jugular vein, duplex guided cannulation right internal jugular vein, fluoroscopic supervision interpretation Anesthesia: GETA Surgeon: JACINTA RODRÍGUEZ Estimated blood loss: other (400ml) Pathology: list (pseudoaneurysm wall) Specimen disposition: to lab Condition: stable Disposition: same day
--- NOTE | 2018-11-27 12:30 | Short Stay Summary ---
Short Stay Documentation Date of service: 11/27/18 Narrative H&P: Admitted to the operative suite for outpatient resection of an large pseudoaneurysms of his right upper extremity AV fistula and placement of permacath - History H&P: obtained from office - Allergies and Medications Current Medications: Allergies No Known Allergies Allergy (Verified 11/26/18 14:12) Home Medications Medication Instructions Recorded Confirmed Last Taken Type Insulin Glargine,Hum.rec.anlog 20 unit SQ QHS 06/21/14 11/27/18 10/28/18 History [Lantus] 20units Sevelamer Carbonate [Renvela] 800 mg PO TIDWM 06/21/14 11/27/18 11/26/18 21:00 History Atorvastatin [Lipitor] 80 mg PO QHS 06/26/14 11/27/18 11/26/18 20:00 History Clopidogrel [Plavix] 75 mg PO QDAY 06/26/14 11/27/18 11/26/18 09:00 History Acyclovir [Zovirax Cap] 400 mg PO BID #10 cap 06/02/16 11/27/18 11/26/18 20:00 Rx Aspirin [Aspirin BABY CHEW TAB] 81 mg PO QDAY #30 tab.chew 10/14/17 11/27/18 11/26/18 09:00 Rx Carvedilol [Coreg] 12.5 mg PO BID #60 tablet 10/14/17 11/27/18 11/26/18 20:00 Rx ISOSORBIDE MONOnitrate [Imdur ER] 30 mg PO QDAY #30 tablet 10/14/17 11/27/18 11/26/18 09:00 Rx Bacitracin 500 units BID 07/01/18 11/27/18 11/26/18 20:00 History Memantine HCl 5 mg PO QHS 07/01/18 11/27/18 11/26/18 20:00 History Sertraline [Zoloft] 25 mg PO QDAY 07/01/18 11/27/18 11/26/18 09:00 History Vit B Comp No.3/Folic/C/Biotin 1 each PO QDAY 07/01/18 11/27/18 11/26/18 09:00 History [[place] Rx Tablet] Active Medications Famotidine (Pepcid) 20 mg IV PREOP NR Stop: 11/27/18 15:00 Last Admin: 11/27/18 08:26 Dose: 20 mg Documented by: Hydromorphone HCl (Dilaudid) 0.25 mg IV Q10MIN PRN PRN Reason: Pain, Moderate (4-6) Stop: 11/27/18 20:00 Cefazolin Sodium (Ancef/Sterile Water 2 Gm/20 Ml) 2 gm in 20 mls @ 80 mls/hr IV PREOP NR; Protocol Stop: 11/27/18 23:59 Sodium Chloride (Nacl 0.9% 1000 Ml) 1,000 mls @ 42 mls/hr IV DIRECT ALANA Last Admin: 11/27/18 08:25 Dose: 42 mls/hr Documented by: Desmopressin Acetate 20 mcg/ (Sodium Chloride) 55 mls @ 100 mls/hr IV ONCE ONE Stop: 11/27/18 12:32 Ondansetron HCl (Zofran) 4 mg IV ONCE PRN PRN Reason: Nausea And Vomiting Stop: 11/27/18 16:00 - Brief post op/procedure progress note Date of procedure: 11/27/18 Procedure: Pre-op diagnosis: mechanical complication of AV fistula Post-op diagnosis: same Findings: Large pseudoaneurysms with heavy wall calcification involving both the arterial and venous cannulation sites. Successfully removed. The cath placed for interval dialysis. Good positioning. Ready for use. Procedure: Revision of AV fistula right upper extremity Insertion of permacath right internal jugular vein, duplex guided cannulation right internal jugular vein, fluoroscopic supervision interpretation Anesthesia: GETA Surgeon: JACINTA RODRÍGUEZ Estimated blood loss: other (400ml) Pathology: list (pseudoaneurysm wall) Specimen disposition: to lab Condition: stable Disposition: same day - Disposition Condition at discharge: Stable Disposition: DC-01 TO HOME OR SELFCARE Short Stay Discharge Plan Activity: advance as tolerated Weight Bearing Status: Full Weight Bearing Diet: renal Wound: keep clean and dry, remove dressing (remove na wrap after dialysis on 11/28/18) Special Instructions: no heavy lifting Follow up with: JANNA BURTON DO [Primary Care Provider] - 7 Days JACINTA RODRÍGUEZ MD [Staff Physician] - 14 Days Prescriptions: HYDROcodone/APAP 5-325 [[place] 5/325] 1 each PO Q4HR PRN #28 tablet PRN Reason: Pain, Moderate (4-6)
--- NOTE | 2018-11-27 12:43 | Fluoroscopy Report ---
FLUOROSCOPY CENTRAL VENOUS DEVICE PLACEMENT History: Permacath insertion. Findings: Fluoroscopy was provided by radiology. 2 fluoroscopic images of the mid chest were captured during permacath placement. The distal tip of the permacath terminates in the mid right atrium. No obvious pneumothorax on this limited image. Impression: Permacath placement as described.
--- NOTE | 2018-11-27 13:47 | Post Anesthesia Evaluation ---
- Post Anesthesia Evaluation Patient Participated: Yes Airway Patent: Yes Stable Respiratory Function: Yes Temp > 96.8F: Yes Pain Manageable: Yes Adequeate Hydration: Yes Anesthesia Complications: No
[2018-11-27 17:54] VITALS: BP 142/52
--- NOTE | 2018-12-02 16:18 | Operative Report ---
PREOPERATIVE DIAGNOSIS: Mechanical complication of AV fistula, end-stage renal disease. POSTOPERATIVE DIAGNOSIS: Mechanical complication of AV fistula, end-stage renal disease. OPERATIVE PROCEDURE: 1. Revision of surgically created hemodialysis fistula, right upper extremity. 2. Insertion of Myuf-S-Fntnkchs, right internal jugular vein. 3. Duplex guided cannulation, right internal jugular vein access. 4. Fluoroscopic supervision and interpretation. SURGEON: Nicanor Soria MD ANESTHESIA: General endotracheal. ESTIMATED BLOOD LOSS: Around 400 mL. PATIENT CONDITION: Stable. COMPLICATIONS: None. INSTRUMENT COUNTS: Correct. SPECIMENS: Pseudoaneurysm wall. SURGICAL HISTORY: The patient with known enlarging pseudoaneurysms, making hemodialysis cannulation difficult. Admitted to the surgical suite for operative revision of the pseudoaneurysms. Perm-A-Cath will be required because the cannulation site will be inaccessible after completion of the procedure. SURGICAL DETAILS: The patient in the supine position, after adequate levels of general endotracheal anesthesia was obtained, the patient's right neck and chest were prepped and draped using standard sterile technique. The patent internal jugular vein on the right was identified using duplex scan and the skin overlying was anesthetized. A small transverse incision was made just above the clavicle and using duplex guidance, the cannulation needle was observed to penetrate patent wall of the internal jugular vein. A guidewire was then fluoroscopically passed through the right atrium into the inferior vena cava. Cannulation needle was removed. The tract was dilated and the SafeSheath introducer was advanced to the right atrium. The 23 cm Perm-A-Cath was then inserted through the peel-away introducer and removed. The safety seal cap was intact; therefore, no backbleeding was noted. The catheter tip was located within the right atrium. Then using the external portion of the catheter, identified the appropriate site for tunnel exit. I anesthetized that, made a small stab incision. The tunneling device was then passed retrograde into the cervical incision. The catheter was clamped, redundant catheter was excised, and attached to the tunneler and the entire device was then withdrawn into the tunnel. Catheter tip was adjusted fluoroscopically seating of the cuff within the tunnel at the appropriate spot. The redundant catheter on the external portion was then again excised after clamping the catheter. The locking mechanism was advanced and the catheter extension set was placed and the locking mechanism was then closed sealing the system. Both limbs of the catheter aspirated, flushed, and primed using 1000 units of heparin per mL. Sterile caps were applied. The cervical incision was closed using 3-0 Vicryl subcutaneous, 4-0 Monocryl subcuticular and sealed with glue. The catheter was anchored to the skin using a Biopatch and Telfa and Tegaderm dressing. The patient tolerated that part of the procedure well. The patient was then reprepped and draped and the bed was rotated and the right arm was then prepped and draped using standard sterile technique. I then marked the large pseudoaneurysms for excision and then removed an ellipse of redundant skin that had thinned out over the anterior wall of the pseudoaneurysm. Dissection was deepened through the subcutaneous tissue into the wall of the fistula was then found and that was dissected free from the surrounding tissue. I then heparinized the patient and occluded the fistula proximally and distally and then opened the fistula longitudinally. I then trimmed the redundant fistula wall away until I was satisfied that the remaining fistula when closed would result in approximately normal size fistula. This was actually done in 2 separate sections, 1 over the arterial pseudoaneurysm and 1 over the venous pseudoaneurysm. There was a small bridge of relatively normal fistula between, which was not opened. I then used a running 6-0 Prolene suture, closed the suture line until just a small amount was left. I then flushed antegrade and retrograde, and then completed the suture line. A single tacking suture was needed for hemostasis. The fistula was evacuated of air and then flow was released with excellent thrill and bruit noted. The fistula itself was now down to approximately a 7-8 mm size. I then mobilized a small amount of the subcutaneous tissue and then closed the remaining skin, which easily came in it together in a tensionless fashion over the entire length of the fistula using 3-0 Vicryl subcutaneous. I then closed the incision with a 4-0 Monocryl subcuticular. Sterile dressing was applied with a little counter pressure. The patient was then placed in a very light Elijah wrap. He was then returned to the recovery room in stable condition having tolerated the procedure well. Sponge and needle counts were correct. JOB# [id number] THONY/CARLOS MANUEL
== END 2018-11-27 15:20 | disposition home or self-care (01) ==
LOC: OR 05:44
PROVIDERS: ATTEND Surgery Vascular Surgery
DX: T82.590A Other mechanical complication of surgically created arteriovenous fistula, initial encounter (principal); I13.2 Hypertensive heart and chronic kidney disease with heart failure and with stage 5 chronic kidney disease, or end stage renal disease; E11.22 Type 2 diabetes mellitus with diabetic chronic kidney disease; N18.6 End stage renal disease; I50.42 Chronic combined systolic (congestive) and diastolic (congestive) heart failure; I25.5 Ischemic cardiomyopathy; E11.21 Type 2 diabetes mellitus with diabetic nephropathy; I25.10 Atherosclerotic heart disease of native coronary artery without angina pectoris; E78.00 Pure hypercholesterolemia, unspecified; K21.9 Gastro-esophageal reflux disease without esophagitis; M19.90 Unspecified osteoarthritis, unspecified site; Z79.82 Long term (current) use of aspirin; Z79.899 Other long term (current) drug therapy; Z79.4 Long term (current) use of insulin; Z95.810 Presence of automatic (implantable) cardiac defibrillator; Z89.519 Acquired absence of unspecified leg below knee; Z98.41 Cataract extraction status, right eye; Z98.42 Cataract extraction status, left eye; Z83.3 Family history of diabetes mellitus; Z82.49 Family history of ischemic heart disease and other diseases of the circulatory system; Z82.61 Family history of arthritis; Z83.511 Family history of glaucoma; Z80.3 Family history of malignant neoplasm of breast; Y83.8 Other surgical procedures as the cause of abnormal reaction of the patient, or of later complication, without mention of misadventure at the time of the procedure; Y92.89 Other specified places as the place of occurrence of the external cause
CPT/HCPCS: 36415; 36561; 36832; 77001; 80048; 82962; 85025; 88304; 88311; C1750; J0690; J1644; J2370; J2405; J2597; J3010; J7030; J7040

== ENCOUNTER 2018-12-11 10:03 | Day surgery (SDC) | payer MEDICARE ==
[2018-12-11] MEDS ORDERED: HEPARIN 10,000 UNITS/10 ML ONE (12:54)
[2018-12-11] MEDS ORDERED: HEPARIN/NS 5000 UNIT/500ML(CATH LAB) 500 ML IR ONE (12:54)
[2018-12-11] MEDS ORDERED: ANCEF/STERILE WATER 2 GM/20 ML 2 GM/20 ML SYRINGE IV ONE (12:58)
[2018-12-11] MEDS: VERSED ONE ×2 (13:05→13:16)
[2018-12-11] MEDS: XYLOCAINE 1%/ EPI 1:100,000 INFILTRATI ONE ×2 (13:05→13:18)
[2018-12-11] MEDS: SUBLIMAZE ONE ×2 (13:05→13:16)
[2018-12-11 15:33] VITALS: BP 132/67
--- NOTE | 2018-12-11 15:40 | Operative Report ---
Operative Report Operative Report: EXAM: 1. Fluoroscopic guided exchange of a right internal jugular 23 cm tip to cuff tunneled cuffed hemodialysis catheter. DATE: 12/11/18 INDICATION: Dialysis catheter malfunction. Hemodialysis catheter partially pulled out. MEDICATIONS: Please see nursing report for full details. GUITAR PLAYER: PEARL BALLESTEROS MD DEVICES: 23 cm tip to cuff 15 Fr dual lumen hemodialysis catheter ; existing catheter was a 23 cm tip to cuff dual lumen hemodialysis catheter CONTRAST: Please see cath report for full details. PROCEDURE: The risks, benefits, and alternatives were discussed and informed consent was obtained. The patient was transported to the angiography suite in satisfactory/stable condition and was transported onto the angiography table. The patient was prepped and draped in a sterile fashion. The existing PermCath was prepped and draped in a sterile fashion. Heparin was removed from the lumens and then saline was used to flush the lumens. A stiff angled Glidewire was advanced through each of the lumens of the existing PermCath. Lidocaine was used to anesthetize the existing PermCath dermatotomy. Using a hemostat, blunt dissection was used to free the existing cuff. The catheter was partially retracted. Over the 0.035 inch wire, the existing PermCath was removed and the wire was cleaned with ChloraPrep. A new PermCath was advanced over the wire and position centrally under fluoroscopic guidance. 2-0 Ethilon suture was used to secure the catheter at the dermatotomy. The catheter was charged with heparin 1000 units/mL space. Sterile dressing and biopatch applied. The patient was transferred from the angiography suite back to the floor in stable condition. FINDINGS: 1. Excellent flow was obtained through the dialysis catheter with 20 mL syringes. 2. The new catheter tip is in the right atrium. The old catheter tip was in the right atrium. IMPRESSION: 1. Successful fluoroscopic guided replacement of a right internal jugular tunneled cuffed hemodialysis catheter.
--- NOTE | 2018-12-11 15:40 | Short Stay Summary ---
Short Stay Documentation Date of service: 12/11/18 Narrative H&P: 43 year old male with ESRD and permcath malfunction. - History Principal diagnosis: Permcath malfunction Past Medical History: dialysis, stroke Past Surgical History: Other (AV access creation) - Allergies and Medications Current Medications: Allergies No Known Allergies Allergy (Verified 11/26/18 14:12) Home Medications Medication Instructions Recorded Confirmed Last Taken Type Insulin Glargine,Hum.rec.anlog 20 unit SQ QHS 06/21/14 12/11/18 12/10/18 History [Lantus] Sevelamer Carbonate [Renvela] 800 mg PO TIDWM 06/21/14 12/11/18 12/10/18 History Atorvastatin [Lipitor] 80 mg PO QHS 06/26/14 12/11/18 12/10/18 History Clopidogrel [Plavix] 75 mg PO QDAY 06/26/14 12/11/18 12/10/18 History Aspirin [Aspirin BABY CHEW TAB] 81 mg PO QDAY #30 tab.chew 10/14/17 12/11/18 12/10/18 Rx Carvedilol [Coreg] 12.5 mg PO BID #60 tablet 10/14/17 12/11/18 12/10/18 Rx ISOSORBIDE MONOnitrate [Imdur ER] 30 mg PO QDAY #30 tablet 10/14/17 12/11/18 12/10/18 Rx Memantine HCl 5 mg PO QHS 07/01/18 12/11/18 12/10/18 History Sertraline [Zoloft] 25 mg PO QDAY 07/01/18 12/11/18 12/10/18 History Vit B Comp No.3/Folic/C/Biotin 1 each PO QDAY 07/01/18 12/11/18 12/10/18 History [[facility] Rx Tablet] HYDROcodone/APAP 5-325 [[place] 1 each PO Q4HR PRN #28 tablet 11/27/18 12/11/18 12/10/18 19:00 Rx 5/325] - Physical exam General appearance: no acute distress Lungs: Normal air movement Gastrointestinal: normal - Brief post op/procedure progress note Date of procedure: 12/11/18 Pre-op diagnosis: Permcath malfunction Post-op diagnosis: same Procedure: Permcath exchange Anesthesia: local (w/ conscious sedation) Surgeon: PEARL BALLESTEROS Estimated blood loss: minimal Condition: stable - Hospital course Hospital course: Ready for discharge. - Disposition Condition at discharge: Stable Disposition: DC-01 TO HOME OR SELFCARE - Discharge Diagnoses (1) Hemodialysis catheter malfunction Status: Acute (2) ESRD (end stage renal disease) on dialysis Status: Chronic Short Stay Discharge Plan Activity: advance as tolerated Weight Bearing Status: Weight Bear as Tolerated Diet: renal Wound: keep clean and dry Follow up with: JANNA BURTON DO [Primary Care Provider] - 7 Days Forms: Post Sedation D/C Instructions
== END 2018-12-11 16:32 | disposition home or self-care (01) ==
LOC: CATHLABREC 10:03
PROVIDERS: ATTEND Radiology Diagnostic Radiology
DX: T82.49XA Other complication of vascular dialysis catheter, initial encounter (principal); I13.2 Hypertensive heart and chronic kidney disease with heart failure and with stage 5 chronic kidney disease, or end stage renal disease; E11.22 Type 2 diabetes mellitus with diabetic chronic kidney disease; N18.6 End stage renal disease; I50.42 Chronic combined systolic (congestive) and diastolic (congestive) heart failure; I25.10 Atherosclerotic heart disease of native coronary artery without angina pectoris; E11.21 Type 2 diabetes mellitus with diabetic nephropathy; E78.00 Pure hypercholesterolemia, unspecified; M19.90 Unspecified osteoarthritis, unspecified site; Z95.810 Presence of automatic (implantable) cardiac defibrillator; Z98.49 Cataract extraction status, unspecified eye; Z86.73 Personal history of transient ischemic attack (TIA), and cerebral infarction without residual deficits; Z80.3 Family history of malignant neoplasm of breast; Z83.3 Family history of diabetes mellitus; Z82.49 Family history of ischemic heart disease and other diseases of the circulatory system; Z82.61 Family history of arthritis; Z82.5 Family history of asthma and other chronic lower respiratory diseases; Z98.890 Other specified postprocedural states; Z86.2 Personal history of diseases of the blood and blood-forming organs and certain disorders involving the immune mechanism; Y83.8 Other surgical procedures as the cause of abnormal reaction of the patient, or of later complication, without mention of misadventure at the time of the procedure; Y92.89 Other specified places as the place of occurrence of the external cause
CPT/HCPCS: 36415; 36581; 77001; 84132; 99156; C1750; C1769; J0690; J1644; J2250; J3010

== ENCOUNTER 2019-02-12 10:25 | Day surgery (SDC) | payer MEDICARE ==
[2019-02-12 11:09] LABS: Basophils % (Auto) 1.1 % (0.0-1.8); Hemoglobin 10.6 gm/dl (11.8-15.2); Lymphocytes # (Auto) 0.4 K/mm3 (1.2-5.4); Mean Corpuscular HGB Conc 32 % (32-34); Mean Corpuscular Volume 93 fl (84-94); Monocytes # (Auto) 0.4 K/mm3 (0.0-0.8); Monocytes % (Auto) 10.6 % (0.0-7.3); Platelet Count 112 K/mm3 (140-440); Red Blood Count 3.57 M/mm3 (3.65-5.03); Red Cell Distribution Width 17.5 % (13.2-15.2)
[2019-02-12 11:27] LABS: Calcium 8.6 mg/dL (8.4-10.2)
[2019-02-12 11:31] LABS: INR 1.36 (0.87-1.13); Partial Thromboplastin Time 31.8 Sec. (24.2-36.6)
[2019-02-12] MEDS ORDERED: NACL 0.9% 500 ML 0 ML ONE (12:31)
[2019-02-12] MEDS ORDERED: HEPARIN/NS 5000 UNIT/500ML(CATH LAB) 500 ML IR ONE (12:31)
[2019-02-12] MEDS ORDERED: HEPARIN 10,000 UNITS/10 ML ONE ×3 (12:31→16:40)
[2019-02-12] MEDS ORDERED: ANCEF/STERILE WATER 2 GM/20 ML 0 GM/0 ML SYRINGE IV ONE (12:32)
[2019-02-12] MEDS ORDERED: ANCEF/STERILE WATER 2 GM/20 ML 2 GM/20 ML SYRINGE IV ONE (16:39)
[2019-02-12] MEDS ORDERED: HEPARIN/NS 5000 UNIT/500ML(CATH LAB) 1,000 ML IR ONE (16:39)
[2019-02-12] MEDS ORDERED: NACL 0.9% 500 ML 500 ML ONE (16:40)
[2019-02-12] MEDS ORDERED: VERSED ONE (16:40)
[2019-02-12] MEDS ORDERED: XYLOCAINE 2% INFILTRATI ONE (16:42)
[2019-02-12] MEDS: SUBLIMAZE ONE ×2 (17:14→17:16)
--- NOTE | 2019-02-12 17:54 | Operative Report ---
Operative Report Operative Report: Date of procedure: 02/12/2019 Pre-operative diagnosis: Malfunction of AV fistula right arm, end-stage renal disease Post-operative diagnosis: Same Procedure name(s): #1 arteriovenous fistula gram with percutaneous balloon angioplasty of the peripheral dialysis circuit #2 percutaneous balloon an gioplasty of the central venous dialysis circuit #3 ultrasound-guided cannulation AV fistula right arm #4 moderate sedation [id number] or a total sedation time of 25 minutes Surgeon: Nicanor Soria MD Metalizing Supervisor: None Anesthesia: Moderate sedation total sedation time 25 minutes EBL: Minimal Specimen(s): None Complications: None Findings: AV fistula with good inflow. Several areas of moderate stenosis in the peripheral dialysis circuit and the cephalic arch SUCCESSFULLY treated with balloon angioplasty somewhat more serious amount of stenosis at the confluence of the proximal subclavian to the brachiocephalic vein surgery with angioplasty with good results. Procedure: Ultrasound guidance through anesthetized skin was utilized to cannulate the arterial end of the AV fistula which was a brachiocephalic transposed configuration of the micropuncture kit was used and contrast was injected which showed that basically the fistula was fairly open. There was an area just beyond the venous cannulation site and had a modest stenosis and one in the cephalic arch. Because of the difficulties that the center had had with cannulation elected to treat these areas and heparinized the patient then proceeded to treat the stenotic lesions with an 8 x 4 balloon. Further contrast injections postangioplasty showed improvement in the caliber of the vessel. Sheath was removed over a pursestring chromic suture after removal of balloons and catheters and wires. Patient was returned to the recovery area in stable condition.
--- NOTE | 2019-02-12 18:00 | Short Stay Summary ---
Short Stay Documentation Date of service: 02/12/19 Narrative H&P: Patient in the supine position with the right arm extended the entire extremity is prepped and draped using standard sterile technique. Ultrasound was used to identify the patent fistula and through anesthetized skin and the micro- cannulation needle was utilized to penetrate the anterior wall of the fistula. I couldn't sheath was placed over the wire contrast was injected in the fistula showing the inflow to be adequate and the main cannulation surface to be widely patent. On the venous cannulation surface was modest narrowing but the fistula itself still remain rather large. It upward until the cephalic arch was reached and there was again some modest 40-50% narrowing or obstructing lesion. Centrally just showed there to be a significant stenosis of about 50-60% at the confluence of the subclavian and the internal jugular as it formed the brachiocephalic/innominate vein on the right. Central venous anomaly. She was heparinized and 6 [place] sheath was placed. Wire was advanced across the lesions and each was posted for an 8 x 4 balloon. Moderate improvement was noted throughout. The access appeared to run somewhat better. It was marked for future cannulation by the nurses. I then removed all guidewires catheters and sheaths and extracted the introducer over a pursestring chromic suture. She returned to recovery in stable condition, tolerated procedure well. - History H&P: obtained from office - Allergies and Medications Current Medications: Allergies No Known Allergies Allergy (Verified 11/26/18 14:12) Home Medications Medication Instructions Recorded Confirmed Last Taken Type Insulin Glargine,Hum.rec.anlog 20 unit SQ QHS 06/21/14 12/11/18 12/10/18 History [Lantus] Sevelamer Carbonate [Renvela] 800 mg PO TIDWM 06/21/14 12/11/18 12/10/18 History Atorvastatin [Lipitor] 80 mg PO QHS 06/26/14 12/11/18 12/10/18 History Clopidogrel [Plavix] 75 mg PO QDAY 06/26/14 12/11/18 12/10/18 History Aspirin [Aspirin BABY CHEW TAB] 81 mg PO QDAY #30 tab.chew 10/14/17 12/11/18 12/10/18 Rx Carvedilol [Coreg] 12.5 mg PO BID #60 tablet 10/14/17 12/11/1819 Rx ISOSORBIDE MONOnitrate [Imdur ER] 30 mg PO QDAY #30 tablet 10/14/17 12/11/18 12/10/18 Rx Memantine HCl 5 mg PO QHS 07/01/18 12/11/18 12/10/18 History Sertraline [Zoloft] 25 mg PO QDAY 07/01/18 12/11/18 12/10/18 History Vit B Comp No.3/Folic/C/Biotin 1 each PO QDAY 07/01/18 12/11/18 12/10/18 History [[facility] Rx Tablet] HYDROcodone/APAP 5-325 [[place] 1 each PO Q4HR PRN #28 tablet 11/27/18 12/11/18 12/10/18 19:00 Rx 5/325] Active Medications Cefazolin Sodium (Ancef/Sterile Water 2 Gm/20 Ml) 2 gm in 20 mls @ 80 mls/hr IV PREOP NR; Protocol Stop: 02/12/19 23:59 Sodium Chloride (Nacl 0.9% 1000 Ml) 1,000 mls @ 42 mls/hr IV DIRECT ALANA - Brief post op/procedure progress note Date of procedure: 02/12/19 Procedure: Pre-operative diagnosis: Malfunction of AV fistula right arm, end-stage renal disease Post-operative diagnosis: Same Procedure name(s): #1 arteriovenous fistula gram with percutaneous balloon angioplasty of the peripheral dialysis circuit #2 percutaneous balloon angioplasty of the central venous dialysis circuit #3 ultrasound-guided cannulation AV fistula right arm #4 moderate sedation [id number] or a total sedation time of 25 minutes Surgeon: Nicanor Soria MD Neighborhood Aide: None Anesthesia: Moderate sedation total sedation time 25 minutes EBL: Minimal Specimen(s): None Complications: None Findings: AV fistula with good inflow. Several areas of moderate stenosis in the peripheral dialysis circuit and the cephalic arch SUCCESSFULLY treated with balloon angioplasty somewhat more serious amount of stenosis at the confluence of the proximal subclavian to the brachiocephalic vein surgery with angioplasty with good results. Procedure: Ultrasound guidance through anesthetized skin was utilized to cannulate the arterial end of the AV fistula which was a brachiocephalic transposed configuration of the micropuncture kit was used and contrast was injected which showed that basically the fistula was fairly open. There was an area just beyond the venous cannulation site and had a modest stenosis and one in the cephalic arch. Because of the difficulties that the center had had with cannulation elected to treat these areas and heparinized the patient then proceeded to treat the stenotic lesions with an 8 x 4 balloon. Further contrast injections postangioplasty showed improvement in the caliber of the vessel. Sheath was removed over a pursestring chromic suture after removal of balloons and catheters and wires. Patient was returned to the recovery area in stable condition. - Disposition Condition at discharge: Stable Disposition: DC-01 TO HOME OR SELFCARE Short Stay Discharge Plan Activity: advance as tolerated Weight Bearing Status: Full Weight Bearing Diet: diabetic, renal Wound: keep clean and dry Special Instructions: no heavy lifting Follow up with: JANNA BURTON DO [Primary Care Provider] - 7 Days
[2019-02-12 19:16] VITALS: BP 170/71
== END 2019-02-12 10:26 | disposition home or self-care (01) ==
LOC: CATHLABREC 10:25
PROVIDERS: ATTEND Surgery Vascular Surgery
DX: T82.858A Stenosis of other vascular prosthetic devices, implants and grafts, initial encounter (principal); I13.2 Hypertensive heart and chronic kidney disease with heart failure and with stage 5 chronic kidney disease, or end stage renal disease; E11.22 Type 2 diabetes mellitus with diabetic chronic kidney disease; N18.6 End stage renal disease; I50.42 Chronic combined systolic (congestive) and diastolic (congestive) heart failure; E11.21 Type 2 diabetes mellitus with diabetic nephropathy; G93.40 Encephalopathy, unspecified; I25.5 Ischemic cardiomyopathy; I25.10 Atherosclerotic heart disease of native coronary artery without angina pectoris; H40.9 Unspecified glaucoma; E11.39 Type 2 diabetes mellitus with other diabetic ophthalmic complication; E11.51 Type 2 diabetes mellitus with diabetic peripheral angiopathy without gangrene; E78.00 Pure hypercholesterolemia, unspecified; K21.9 Gastro-esophageal reflux disease without esophagitis; Z79.4 Long term (current) use of insulin; Z79.82 Long term (current) use of aspirin; Z79.899 Other long term (current) drug therapy; Z95.810 Presence of automatic (implantable) cardiac defibrillator; Z89.519 Acquired absence of unspecified leg below knee; Z98.49 Cataract extraction status, unspecified eye; Z95.1 Presence of aortocoronary bypass graft; Z99.0 Dependence on aspirator; Z98.890 Other specified postprocedural states; Z83.3 Family history of diabetes mellitus; Z80.3 Family history of malignant neoplasm of breast; Z82.61 Family history of arthritis; Z86.73 Personal history of transient ischemic attack (TIA), and cerebral infarction without residual deficits; Z86.2 Personal history of diseases of the blood and blood-forming organs and certain disorders involving the immune mechanism; Z82.49 Family history of ischemic heart disease and other diseases of the circulatory system; Y83.8 Other surgical procedures as the cause of abnormal reaction of the patient, or of later complication, without mention of misadventure at the time of the procedure
CPT/HCPCS: 36415; 36902; 76937; 80048; 82962; 85025; 85610; 85730; 99156; 99157; C1725; C1894; J0690; J1644; J2250; J3010; J7040; Q9967

== ENCOUNTER 2019-05-30 06:30 | Inpatient (IN) | payer MEDICARE ==
--- NOTE | 2019-05-30 07:14 | Emergency Department Report ---
ED General Adult HPI - General Stated complaint: HYPOTENSION Time Seen by Provider: 05/30/19 06:43 - History of Present Illness Initial comments: 43-year-old male who does not appear his stated age and resides in a group home and is on chronic dialysis. According to the dialysis center the patient's blood pressure dropped to 50 and therefore dialysis was not performed. On arrival here he is normotensive. Prior when paramedics arrived his blood pre ssure was normal as well. He has no specific complaints when I speak with him. He is attended by a family member states that he "has memory problems". They are not particularly medically fluent either. He does appear to have ascites. The family states that he has a history of liver disease and diabetes as well. Patient is bit lethargic but arousable and does follow commands. Patient and family agree that he was due for his regular dialysis. He is not identifying other problems. Associated Symptoms: denies other symptoms - Related Data Home Medications Medication Instructions Recorded Confirmed Last Taken Insulin Glargine,Hum.rec.anlog 20 unit SQ QHS 06/21/14 12/11/18 12/10/18 [Lantus] Sevelamer Carbonate [Renvela] 800 mg PO TIDWM 06/21/14 12/11/18 12/10/18 Atorvastatin [Lipitor] 80 mg PO QHS 06/26/14 12/11/18 12/10/18 Clopidogrel [Plavix] 75 mg PO QDAY 06/26/14 12/11/18 12/10/18 Memantine HCl 5 mg PO QHS 07/01/18 12/11/18 12/10/18 Sertraline [Zoloft] 25 mg PO QDAY 07/01/18 12/11/18 12/10/18 Vit B Comp No.3/Folic/C/Biotin 1 each PO QDAY 07/01/18 12/11/18 12/10/18 [[facility] Rx Tablet] Previous Rx's Medication Instructions Recorded Last Taken Type Aspirin [Aspirin BABY CHEW TAB] 81 mg PO QDAY #30 tab.chew 10/14/17 12/10/18 Rx Carvedilol [Coreg] 12.5 mg PO BID #60 tablet 10/14/17 12/10/18 Rx ISOSORBIDE MONOnitrate [Imdur ER] 30 mg PO QDAY #30 tablet 10/14/17 12/10/18 Rx HYDROcodone/APAP 5-325 [[place] 1 each PO Q4HR PRN #28 tablet 11/27/18 12/10/18 19:00 Rx 5-325 mg TAB] Allergies Allergy/AdvReac Type Severity Reaction Status Date / Time No Known Allergies Allergy Verified 11/26/18 14:12 ED Review of Systems ROS: Stated complaint: HYPOTENSION Other details as noted in HPI Comment: All other systems reviewed and negative ED Past Medical Hx - Past Medical History Hx Hypertension: Yes Hx CVA: Yes Hx Heart Attack/AMI: Yes (Cardiac arrest during office procedure in 2014) Hx Congestive Heart Failure: Yes Hx Diabetes: Yes (IDDM) Hx GERD: Yes Hx Arthritis: Yes (Hands) Hx Seizures: Yes (last 2014) Hx Asthma: No Hx COPD: No Additional medical history: Gastroparesis. HYPERLIPIDEMIA. "cardiac arrest- then stroke in sep" - Surgical History Hx Coronary Stent: Yes Hx Open Heart Surgery: Yes (ICD) Hx Pacemaker: No Hx Internal Defibrillator: Yes (2008) Additional Surgical History: RT AKA. pacemaker - Social History Smoking Status: Never Smoker - Medications Home Medications: Home Medications Medication Instructions Recorded Confirmed Last Taken Type Insulin Glargine,Hum.rec.anlog 20 unit SQ QHS 06/21/14 12/11/18 12/10/18 History [Lantus] Sevelamer Carbonate [Renvela] 800 mg PO TIDWM 06/21/14 12/11/18 12/10/18 History Atorvastatin [Lipitor] 80 mg PO QHS 06/26/14 12/11/18 12/10/18 History Clopidogrel [Plavix] 75 mg PO QDAY 06/26/14 12/11/18 12/10/18 History Aspirin [Aspirin BABY CHEW TAB] 81 mg PO QDAY #30 tab.chew 10/14/17 12/11/18 12/10/18 Rx Carvedilol [Coreg] 12.5 mg PO BID #60 tablet 10/14/17 12/11/18 12/10/18 Rx ISOSORBIDE MONOnitrate [Imdur ER] 30 mg PO QDAY #30 tablet 10/14/17 12/11/18 12/10/18 Rx Memantine HCl 5 mg PO QHS 07/01/18 12/11/1812/10/19 History Sertraline [Zoloft] 25 mg PO QDAY 07/01/18 12/11/18 12/10/18 History Vit B Comp No.3/Folic/C/Biotin 1 each PO QDAY 07/01/18 12/11/18 12/10/18 History [[facility] Rx Tablet] HYDROcodone/APAP 5-325 [[place] 1 each PO Q4HR PRN #28 tablet 11/27/18 12/11/18 12/10/18 19:00 Rx 5-325 mg TAB] ED Physical Exam - General Limitations: Physical Limitation General appearance: lethargic - Head Head exam: Present: atraumatic, normocephalic - Eye Eye exam: Absent: scleral icterus - ENT ENT exam: Present: mucous membranes moist - Neck Neck exam: Present: normal inspection. Absent: tenderness, meningismus - Respiratory Respiratory exam: Present: normal lung sounds bilaterally. Absent: respiratory distress - Cardiovascular Cardiovascular Exam: Present: regular rate, normal rhythm. Absent: systolic murmur, diastolic murmur, rubs, gallop - GI/Abdominal GI/Abdominal exam: Present: soft, distended, other (likely ascites). Absent: tenderness, guarding, rebound, rigid - Rectal Rectal exam: Present: deferred - Extremities Exam Extremities exam: Present: other (AKA) - Neurological Exam Neurological exam: Present: other (no acute focal deficit evident) - Psychiatric Psychiatric exam: Present: flat affect - Skin Skin exam: Present: warm, dry, intact, normal color. Absent: rash ED Course Vital Signs 05/30/19 05/30/19 05/30/19 07:25 07:26 07:31 Temperature 98.4 F Pulse Rate 75 86 75 Respiratory 14 13 Rate Blood Pressure 103/38 140/21 O2 Sat by Pulse 96 96 Oximetry - Reevaluation(s) Reevaluation #1: Spoke with Dr. Ybarra who agrees with management thus far. He is entering dialysis orders. Spoke with hospitalist admit their service.dj05/30/19 09:16 ED Medical Decision Making - Lab Data Result diagrams: 05/30/19 07:19 05/30/19 07:19 Laboratory Results - last 24 hr 05/30/19 05/30/19 05/30/19 07:19 07:19 07:19 WBC 4.6 RBC 3.85 Hgb 11.7 L Hct 35.8 MCV 93 MCH 30 MCHC 33 RDW 19.1 H Plt Count Lymph % (Auto) 11.6 L [place] % (Auto) 7.0 Eos % (Auto) 1.5 Baso % (Auto) 1.7 Lymph # 0.5 L [place] # 0.3 Eos # 0.1 Baso # 0.1 Seg Neutrophils % 78.2 H Seg Neutrophils # 3.6 PT 17.8 H INR 1.51 H APTT 32.9 Sodium 137 Potassium 6.3 H* Chloride 96.6 L Carbon Dioxide 20 L Anion Gap 27 BUN 65 H Creatinine 8.3 H Estimated GFR 9 BUN/Creatinine Ratio 8 Glucose 185 H Calcium 9.6 Phosphorus Magnesium 2.10 Total Bilirubin 1.50 H Direct Bilirubin 0.7 H Indirect Bilirubin 0.8 AST 25 ALT 29 Alkaline Phosphatase 194 H Ammonia Total Creatine Kinase 105 CK-MB (CK-2) 5.1 H CK-MB (CK-2) Rel Index 4.8 H Total Protein 7.7 Albumin 4.2 Albumin/Globulin Ratio 1.2 Lipase 25 05/30/19 05/30/19 07:19 07:19 WBC RBC Hgb Hct MCV MCH MCHC RDW Plt Count Lymph % (Auto) [place] % (Auto) Eos % (Auto) Baso % (Auto) Lymph # [place] # Eos # Baso # Seg Neutrophils % Seg Neutrophils # PT INR APTT Sodium Potassium Chloride Carbon Dioxide Anion Gap BUN Creatinine Estimated GFR BUN/Creatinine Ratio Glucose Calcium Phosphorus 7.90 H Magnesium Total Bilirubin Direct Bilirubin Indirect Bilirubin AST ALT Alkaline Phosphatase Ammonia 64.0 H Total Creatine Kinase CK-MB (CK-2) CK-MB (CK-2) Rel Index Total Protein Albumin Albumin/Globulin Ratio Lipase - EKG Data -: EKG Interpreted by Me EKG shows normal: sinus rhythm, axis, intervals, QRS complexes - EKG Data Interpretation: other (inferolateral ST depression delayed or wave progression intraventricular conduction delay) - Radiology Data Radiology results: report reviewed (cardiomegaly without decompensation), image reviewed Critical Care Time: Yes Critical care time in (mins) excluding proc time.: 60 Critical care attestation.: If time is entered above; I have spent that time in minutes in the direct care of this critically ill patient, excluding procedure time. ED Disposition Clinical Impression: End-stage renal disease needing dialysis, Hyperkalemia, Hypotensive episode Disposition: OP ADMIT IP TO THIS HOSP Is pt being admited?: Yes Does the pt Need Aspirin: Yes Condition: Stable Referrals: SHIVAM THORNTON MD [Primary Care Provider] - 3-5 Days Time of Disposition: 08:30
--- NOTE | 2019-05-30 07:44 | XRay Report ---
CHEST 1 VIEW INDICATION: hypotension. COMPARISON: None FINDINGS: Support devices: Unipolar cardiac lead in satisfactory position. Heart: Mild cardiomegaly. Lungs/Pleura: No acute air space or interstitial disease. Additional findings: None. IMPRESSION: 1. Mild cardiomegaly with clear lungs. Signer Name: Charli Morris MD Signed: 05/30/2019 7:39 AM Workstation Name: [id number]
[2019-05-30 07:49] LABS: Basophils # (Auto) 0.1 K/mm3 (0.0-0.1); Basophils % (Auto) 1.7 % (0.0-1.8); Eosinophils # (Auto) 0.1 K/mm3 (0.0-0.4); Eosinophils % (Auto) 1.5 % (0.0-4.3); Hematocrit 35.8 % (35.5-45.6); Hemoglobin 11.7 gm/dl (11.8-15.2); Lymphocytes # (Auto) 0.5 K/mm3 (1.2-5.4); Lymphocytes % (Auto) 11.6 % (13.4-35.0); Mean Corpuscular HGB Conc 33 % (32-34); Mean Corpuscular Volume 93 fl (84-94); Monocytes # (Auto) 0.3 K/mm3 (0.0-0.8); Red Blood Count 3.85 M/mm3 (3.65-5.03); Red Cell Distribution Width 19.1 % (13.2-15.2)
[2019-05-30 08:06] LABS: INR 1.51 (0.87-1.13); Partial Thromboplastin Time 32.9 Sec. (24.2-36.6)
[2019-05-30 08:07] LABS: Creatine Kinase MB 5.1 ng/mL (0.0-4.0)
[2019-05-30 08:10] LABS: Albumin 4.2 g/dL (3.9-5); Bilirubin,Direct 0.7 mg/dL (0-0.2); Calcium 9.6 mg/dL (8.4-10.2)
[2019-05-30] MEDS ORDERED: HumuLIN R IV ONE (08:26)
[2019-05-30] MEDS ORDERED: D50W (25GM) Syringe IV ONE (08:26)
[2019-05-30] MEDS ORDERED: BABY ASPIRIN PO ONE (08:30)
--- NOTE | 2019-05-30 09:57 | History and Physical Report ---
History of Present Illness Date of examination: 05/30/19 Date of admission: 05/30/19 Chief complaint: low BP History of present illness: 43-year-old male with h/o anoxic brain injury, who appears older than his stated age and resides in a fpc and is on chronic dialysis sent to ER for low BU during HD. According to the dialysis center the patient's blood pressure dropped to 50 and therefore dialysis was not performed. On arrival here in the ER he is normotensive. Prior when paramedics arrived his blood pressure was normal as well. The family stated that he has a history of liver disease and diabetes as well. Patient is bit lethargic but arousable and does follow simple commands. In the ER his K was 6.3 and ammonia 63. nephrology consulted in the ER and he was called for admission. Past History Past Medical History: diabetes, CHF, ESRD, hypertension, hyperlipidemia Past Surgical History: Other (R AKA, ICD, AVF) Social history: lives at fpc Family history: hypertension Review of System: Limited as patient is poor historian and underlying history of anoxic brain injury Constitutional: no fever, no chills, Ears, eyes, nose, mouth and throat: no nasal congestion, no nasal discharge, no sinus pressure, no red eye. Neck: No neck pain or rigidity. Cardiovascular: No chest pain, no leg swelling Respiratory: No shortness of breath, no cough, Gastrointestinal: no abdominal pain, no vomiting Genitourinary : no dysuria, Musculoskeletal: no joint swelling or muscle ache Integumentary: no rash, no pruritis Neurological: no parathesias, no numbness, no tingling Endocrine: no polyuria or polydipsia Hematologic/Lymphatic: no easy bruising, no easy bleeding, no gland swelling Allergic/Immunologic: no urticaria, no angioedema. Medications and Allergies Allergies Allergy/AdvReac Type Severity Reaction Status Date / Time No Known Allergies Allergy Verified 11/26/18 14:12 Home Medications Medication Instructions Recorded Confirmed Last Taken Type Insulin Glargine,Hum.rec.anlog 20 unit SQ QHS 06/21/14 12/11/18 12/10/18 History [Lantus] Sevelamer Carbonate [Renvela] 800 mg PO TIDWM 06/21/14 12/11/18 12/10/18 History Atorvastatin [Lipitor] 80 mg PO QHS 06/26/14 12/11/18 12/10/18 History Clopidogrel [Plavix] 75 mg PO QDAY 06/26/14 12/11/18 12/10/18 History Aspirin [Aspirin BABY CHEW TAB] 81 mg PO QDAY #30 tab.chew 10/14/17 12/11/18 12/10/18 Rx Carvedilol [Coreg] 12.5 mg PO BID #60 tablet 10/14/17 12/11/18 12/10/18 Rx ISOSORBIDE MONOnitrate [Imdur ER] 30 mg PO QDAY #30 tablet 10/14/17 12/11/18 12/10/18 Rx Memantine HCl 5 mg PO QHS 07/01/18 12/11/18 12/10/18 History Sertraline [Zoloft] 25 mg PO QDAY 07/01/18 12/11/18 12/10/18 History Vit B Comp No.3/Folic/C/Biotin 1 each PO QDAY 07/01/18 12/11/18 12/10/18 History [[facility] Rx Tablet] HYDROcodone/APAP 5-325 [[place] 1 each PO Q4HR PRN #28 tablet 11/27/18 12/11/18 12/10/18 19:00 Rx 5-325 mg TAB] Active Meds: Active Medications Acetaminophen (Tylenol) 650 mg PO Q4H PRN PRN Reason: Pain MILD(1-3)/Fever >100.5/[place] Docusate Sodium (Colace) 100 mg PO BID [facility] Famotidine (Pepcid) 10 mg PO DAILY [facility] Hydralazine HCl (Apresoline) 5 mg IV Q30MIN PRN PRN Reason: Hypertension Metoclopramide HCl (Reglan) 10 mg PO Q6H PRN PRN Reason: Nausea And Vomiting Sodium Polystyrene Sulfonate (Kionex) 15 gm PO ONCE ONE Stop: 05/30/19 10:01 Exam - Physical Exam Narrative exam: GENERAL: well-developed elderly looking -English male lying on bed appeared to be in no discomfort. HEENT: Normocephalic. Atraumatic. No conjunctival congestion or icterus. Patient has moist mucous membranes. NECK: Supple. Trachea midline. CHEST/LUNGS: Clear to auscultated bilaterally, breathing nonlabored. No wheezes crackles or rhonchi. HEART/CARDIOVASCULAR: Regular in rate and rhythm. S1 and S2 positive. ABDOMEN: Abdomen is soft, nontender. Patient has normal bowel sounds. SKIN: There is no rash. Warm and dry. NEURO: No focal motor deficit. Follows simple command. MUSCULOSKELETAL: No joint effusion or tenderness. Right AKA EXTRIMITY: No edema, no cyanosis or clubbing. PSYCH: Cooperative. - Constitutional Vitals: Temp Pulse Resp BP Pulse Ox 98.4 F 74 10 L 132/24 95 05/30/19 07:26 05/30/19 09:15 05/30/19 09:15 05/30/19 09:15 05/30/19 09:15 Results - Labs CBC & Chem 7: 05/30/19 07:19 06/01/19 05:11 Labs: Abnormal lab results 05/30/19 05/30/19 05/30/19 Range/Units 07:19 07:19 07:19 Hgb 11.7 L (11.8-15.2) gm/dl RDW 19.1 H (13.2-15.2) % Lymph % (Auto) 11.6 L (13.4-35.0) % Lymph # 0.5 L (1.2-5.4) K/mm3 Seg Neutrophils % 78.2 H (40.0-70.0) % PT 17.8 H (12.2-14.9) Sec. INR 1.51 H (0.87-1.13) Potassium 6.3 H* (3.6-5.0) mmol/L Chloride 96.6 L (98-107) mmol/L Carbon Dioxide 20 L (22-30) mmol/L BUN 65 H (9-20) mg/dL Creatinine 8.3 H (0.8-1.5) mg/dL Glucose 185 H (75-100) mg/dL Phosphorus (2.5-4.5) mg/dL Total Bilirubin 1.50 H (0.1-1.2) mg/dL Direct Bilirubin 0.7 H (0-0.2) mg/dL Alkaline Phosphatase 194 H (35-129) units/L Ammonia (25-60) umol/L CK-MB (CK-2) 5.1 H (0.0-4.0) ng/mL CK-MB (CK-2) Rel Index 4.8 H (0-4) NT-Pro-B Natriuret Pep 77805 H (0-450) pg/mL 05/30/19 05/30/19 Range/Units 07:19 07:19 Hgb (11.8-15.2) gm/dl RDW (13.2-15.2) % Lymph % (Auto) (13.4-35.0) % Lymph # (1.2-5.4) K/mm3 Seg Neutrophils % (40.0-70.0) % PT (12.2-14.9) Sec. INR (0.87-1.13) Potassium (3.6-5.0) mmol/L Chloride (98-107) mmol/L Carbon Dioxide (22-30) mmol/L BUN (9-20) mg/dL Creatinine (0.8-1.5) mg/dL Glucose (75-100) mg/dL Phosphorus 7.90 H (2.5-4.5) mg/dL Total Bilirubin (0.1-1.2) mg/dL Direct Bilirubin (0-0.2) mg/dL Alkaline Phosphatase (35-129) units/L Ammonia 64.0 H (25-60) umol/L CK-MB (CK-2) (0.0-4.0) ng/mL CK-MB (CK-2) Rel Index (0-4) NT-Pro-B Natriuret Pep (0-450) pg/mL Assessment and Plan /Metabolic encephalopathy, acute on chronic -most likely due to ESRD with hyperkalemia and hypotension with underlying anoxic brain injury -supportive care, follow ammonia level /Diabetes mellitus Continue insulin therapy. Continue Accu-Cheks before meals and daily at bedtime. /End stage renal disease Continue dialysis, consulted nephrology /Hypertension Controlled. Continue current medication /Status post right AKA, supportive care /Sytolic CHF without acute exacerbation fluid Mx via HD, Ef 10% /Hyperkalemia - s/p insulin, HCO3 in the ER - plan for emergent HD and 15gm kayexalate ordered /DVT prophylaxis, heparin Chest x-ray: Mild cardiomegaly, no acute changes
[2019-05-30] MEDS ORDERED: NACL 0.9% 100 ML IV PRN (09:59)
[2019-05-30] MEDS ORDERED: PROCRIT IV PRN (09:59)
[2019-05-30] MEDS ORDERED: KIONEX PO ONE (10:00)
[2019-05-30] MEDS ORDERED: APRESOLINE IV PRN (10:00)
[2019-05-30] MEDS ORDERED: REGLAN PO PRN (10:00)
[2019-05-30] MEDS ORDERED: TYLENOL PO PRN (10:00)
[2019-05-30] MEDS ORDERED: NORCO 5/325 PO PRN (11:00)
[2019-05-30] MEDS ORDERED: RENVELA PO SCH (12:00)
[2019-05-30] MEDS ORDERED: ALBURX 25% (ALBUMIN) IV STA (12:03)
[2019-05-30 12:38] LABS: Hepatitis B Surface Antigen Non-Reactive (Negative); Hepatitis C Virus Antibody Non-Reactive (NonReactive)
--- NOTE | 2019-05-30 16:33 | Consultation ---
History of Present Illness - Reason for Consult Consult date: 05/30/19 hyperkalemia Requesting physician: RADHA BARRAZA - History of Present Illness 43-year-old male brought to the hospital because of low blood pressure on getting to dialysis. Patient has a long-standing history of type 2 diabetes mellitus, hypertension, cataract incision or disease on hemodialysis since April 2010. Patient is not able to give a history as he has chronic sequelae of anoxic encephalopathy. He does say a few words but is not able to carry on a meaningful conversation. He has an incision on the disease and is on hemodialysis on a Saturday, and Saturday schedule at [facility]. He has not had any complications on dialysis recently. He does his true a right upper extremity AV fistula. He resides in a shelter. Apparently he was taken to dialysis and blood pressure was low with systolic of 50 and so dialysis was not done. Patient was not having any other symptoms except that he is a bit more agitated than usual. On getting to the ER blood pressure was low normal. 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 denies: smoking, alcohol abuse Family history: diabetes (both parents and 1 sister), hypertension (both parents and siblings) Medications and Allergies Allergies Allergy/AdvReac Type Severity Reaction Status Date / Time No Known Allergies Allergy Verified 11/26/18 14:12 Home Medications Medication Instructions Recorded Confirmed Last Taken Type Insulin Glargine,Hum.rec.anlog 20 unit SQ QHS 06/21/14 12/11/18 12/10/18 History [Lantus] Sevelamer Carbonate [Renvela] 800 mg PO TIDWM 06/21/14 12/11/18 12/10/18 History Atorvastatin [Lipitor] 80 mg PO QHS 06/26/14 12/11/18 12/10/18 History Clopidogrel [Plavix] 75 mg PO QDAY 06/26/14 12/11/18 12/10/18 History Aspirin [Aspirin BABY CHEW TAB] 81 mg PO QDAY #30 tab.chew 10/14/17 12/11/18 12/10/18 Rx Carvedilol [Coreg] 12.5 mg PO BID #60 tablet 10/14/17 12/11/18 12/10/18 Rx ISOSORBIDE MONOnitrate [Imdur ER] 30 mg PO QDAY #30 tablet 10/14/17 12/11/18 12/10/18 Rx Memantine HCl 5 mg PO QHS 07/01/18 12/11/18 12/10/18 History Sertraline [Zoloft] 25 mg PO QDAY 07/01/18 12/11/18 12/10/18 History Vit B Comp No.3/Folic/C/Biotin 1 each PO QDAY 07/01/18 12/11/18 12/10/18 History [[facility] Rx Tablet] HYDROcodone/APAP 5-325 [[place] 1 each PO Q4HR PRN #28 tablet 11/27/18 12/11/18 12/10/18 19:00 Rx 5-325 mg TAB] Active Meds: Active Medications Acetaminophen (Tylenol) 650 mg PO Q4H PRN PRN Reason: Pain MILD(1-3)/Fever >100.5/[place] Acetaminophen/Hydrocodone Bitart ([place] 5/325) 1 each PO Q4HR PRN PRN Reason: Pain, Moderate (4-6) Aspirin (Baby Aspirin) 81 mg PO QDAY [facility] Atorvastatin Calcium (Lipitor) 80 mg PO QHS [facility] Clopidogrel Bisulfate (Plavix) 75 mg PO QDAY [facility] Docusate Sodium (Colace) 100 mg PO BID [facility] Epoetin Ad (Procrit) 10,000 unit IV ELVIN PRN PRN Reason: hemodialysis Famotidine (Pepcid) 10 mg PO DAILY [facility] Hydralazine HCl (Apresoline) 5 mg IV Q30MIN PRN PRN Reason: Hypertension Sodium Chloride (Nacl 0.9%) 100 mls @ 999 mls/hr IV ELVIN PRN PRN Reason: Hypotension Insulin Glargine (Lantus) 20 units SUB-Q QHS [facility] Memantine (Namenda) 5 mg PO QHS [facility] Metoclopramide HCl (Reglan) 10 mg PO Q6H PRN PRN Reason: Nausea And Vomiting Multivit/Ca Carb/B Cmplx/FA/Prenat (Renal Caps) 1 cap PO QDAY [facility] Sertraline HCl (Zoloft) 25 mg PO QDAY [facility] Sevelamer Carbonate (Renvela) 800 mg PO TIDWM [facility] Review of Systems ROS unobtainable: due to mental status Exam - Vital Signs Vital signs: Vital Signs Pulse Resp Pulse Ox 76 12 95 05/30/19 06:42 05/30/19 06:42 05/30/19 06:42 - Physical Exam Narrative exam: Middle-aged, comfortable man lying in bed looks older than stated age in no acute distress HEENT: NCAT, pink oral mucous membrane Neck: Supple, no venous distention CVS: S1S2 RRR with no murmur, rub or gallop Chest: Clear to auscultation Abdomen: Protuberant, soft, nontender, no organomegaly, bowel sounds are present Extremities: No edema, right upper extremity AV access Neuro: Awake, says just a few words, follows simple commands alert no focal deficits Results - Lab Results 05/30/19 07:19 05/30/19 07:19 Most recent lab results Calcium 9.6 mg/dL (8.4-10.2) 05/30/19 07:19 Phosphorus 7.90 mg/dL (2.5-4.5) H 05/30/19 07:19 Magnesium 2.10 mg/dL (1.7-2.3) 05/30/19 07:19 Assessment and Plan - Patient Problems (1) Hyperkalemia Current Visit: Yes Status: Acute Plan to address problem: Hemodialysis on a low potassium bath. Repeat potassium tomorrow (2) Hypotensive episode Current Visit: Yes Status: Acute Plan to address problem: Blood pressure still low normal but definitely improved. Dialyze with albumin initiation. Obtain cultures and follow-up. Start antibiotics if culture is positive or patient develops other signs of sepsis (3) End-stage renal disease needing dialysis Current Visit: Yes Status: Chronic Plan to address problem: Hemodialysis on a low potassium bath but no fluid removal given the hypotension. Patient also does not show any signs of volume overload. We'll reevaluate in the morning (4) Anoxic brain damage Current Visit: No Status: Chronic Plan to address problem: Chronic sequelae of anoxic brain injury. Patient to be more agitated than usual again raising suspicion for sepsis. Follow-up/reevaluate (5) Chronic combined systolic and diastolic congestive heart failure Current Visit: No Status: Chronic Plan to address problem: Hold beta valerie and no indication for fluid removal on dialysis today. (6) Hypertensive chronic kidney disease with stage 5 chronic kidney disease or end stage renal disease Current Visit: No Status: Chronic Plan to address problem: Blood pressure is low. We'll hold hypertensive medications. (7) Type 2 diabetes mellitus with diabetic nephropathy Current Visit: No Status: Chronic Plan to address problem: Blood sugar management by primary Attending MD. (8) Hyperphosphatemia Current Visit: Yes Status: Acute Plan to address problem: Low phosphorus diet and give phosphorus binder with meals
[2019-05-30] MEDS ORDERED: NACL 0.9 (PRIMING MACHINE ONLY DIALYSIS) MC ONE (16:55)
[2019-05-30] MEDS: RENVELA PO SCH (19:36)
[2019-05-30] MEDS ORDERED: MEMANTINE HCL 5 MG PO SCH (22:00)
[2019-05-30] MEDS ORDERED: NON-FORMULARY (Atorvastatin [Lipitor] 80 MG) PO SCH (22:00)
[2019-05-30] MEDS: NAMENDA PO SCH (22:15)
[2019-05-30] MEDS: COLACE PO SCH (22:15)
[2019-05-30] MEDS: LANTUS SUB-Q SCH (22:21)
[2019-05-31 06:10] LABS: Calcium 9.2 mg/dL (8.4-10.2)
[2019-05-31] MEDS: RENVELA PO SCH ×5 (08:57→18:32)
[2019-05-31] MEDS: COLACE PO SCH ×2 (09:39→21:33)
[2019-05-31] MEDS: Renal Caps PO SCH ×2 (09:39→09:40)
[2019-05-31] MEDS: PEPCID PO SCH ×2 (09:40→09:43)
[2019-05-31] MEDS: PLAVIX PO SCH (09:40)
[2019-05-31] MEDS: ZOLOFT PO SCH (09:40)
[2019-05-31] MEDS: BABY ASPIRIN PO SCH (09:40)
[2019-05-31] MEDS ORDERED: NON-FORMULARY (Vit B Comp No.3/Folic/C/Biotin [Rena-Vite Rx Tablet] 1 EACH) PO SCH (10:00)
--- NOTE | 2019-05-31 12:26 | Progress Note ---
Assessment and Plan /Metabolic encephalopathy, acute on chronic -most likely due to ESRD with hyperkalemia, hypotension and hyperammonemia -has h/o anoxic brain injury, cont supportive care /Diabetes mellitus Continue insulin therapy. Continue Accu-Cheks before meals and daily at bedtime. /End stage renal disease Continue dialysis, consulted nephrology /Hypertension Controlled. Home medications on hold as BP at low normotensive /Status post right AKA, continue supportive care /Sytolic CHF without acute exacerbation fluid Mx via HD, Ef 10% /Hyperkalemia, resolved - s/p insulin, HCO3 in the ER - s/p emergent HD and 15gm kayexalate Dvt Px - heparin Subjective Date of service: 05/31/19 Interval history: Patient seen and examined\ No clinical change or any new event o/n s/p HD yesterday, K level normal Objective - Exam Narrative Exam: GENERAL: well-developed elderly looking -[place] male lying on bed appeared to be in no discomfort. HEENT: Normocephalic. Atraumatic. No conjunctival congestion or icterus. Patient has moist mucous membranes. NECK: Supple. Trachea midline. CHEST/LUNGS: Clear to auscultated bilaterally, breathing nonlabored. No wheezes crackles or rhonchi. HEART/CARDIOVASCULAR: Regular in rate and rhythm. S1 and S2 positive. ABDOMEN: Abdomen is soft, nontender. Patient has normal bowel sounds. SKIN: There is no rash. Warm and dry. NEURO: No focal motor deficit. Follows simple command. MUSCULOSKELETAL: No joint effusion or tenderness. Right AKA EXTRIMITY: No edema, no cyanosis or clubbing. PSYCH: Cooperative. - Constitutional Vitals: Vital Signs - 12hr 05/31/19 05/31/19 05:47 12:11 Temperature 99.0 F 98.2 F Pulse Rate 76 74 Respiratory 18 14 Rate Blood Pressure 155/62 142/61 O2 Sat by Pulse 96 96 Oximetry - Labs CBC & Chem 7: 05/30/19 07:19 06/01/19 05:11 Labs: Abnormal lab results 05/30/19 05/30/19 05/31/19 Range/Units 09:27 23:26 05:16 Chloride 95.7 L (98-107) mmol/L BUN 47 H (9-20) mg/dL Creatinine 6.7 H (0.8-1.5) mg/dL Glucose 139 H (75-100) mg/dL POC Glucose 165 H 210 H (70-105) 05/31/19 Range/Units 07:38 Chloride (98-107) mmol/L BUN (9-20) mg/dL Creatinine (0.8-1.5) mg/dL Glucose (75-100) mg/dL POC Glucose 124 H (70-105)
[2019-05-31] MEDS: CEPHULAC PO SCH ×2 (13:59→18:32)
--- NOTE | 2019-05-31 14:42 | Progress Note ---
Assessment and Plan - Patient Problems (1) Hyperkalemia Current Visit: Yes Status: Acute Plan to address problem: Potassium has improved following Hemodialysis on a low potassium bath. Follow- up potassium in the morning (2) Hypotensive episode Current Visit: Yes Status: Acute Plan to address problem: Blood pressure is improving. Follow-up cultures. Start antibiotics if culture is positive or patient develops other signs of sepsis (3) End-stage renal disease needing dialysis Current Visit: Yes Status: Chronic Plan to address problem: Hemodialysis on a Saturday, and Saturday schedule (4) Anoxic brain damage Current Visit: No Status: Chronic Plan to address problem: Chronic sequelae of anoxic brain injury. Patient to be more agitated than usual again raising suspicion for sepsis. Follow-up/reevaluate (5) Chronic combined systolic and diastolic congestive heart failure Current Visit: No Status: Chronic Plan to address problem: Continue to Hold beta valerie (6) Hypertensive chronic kidney disease with stage 5 chronic kidney disease or end stage renal disease Current Visit: No Status: Chronic Plan to address problem: Blood pressure is now improving. Continue to hold hypertensive medications. (7) Type 2 diabetes mellitus with diabetic nephropathy Current Visit: No Status: Chronic Plan to address problem: Blood sugar management by primary Attending MD. (8) Hyperphosphatemia Current Visit: Yes Status: Acute Plan to address problem: Continue Low phosphorus diet and give phosphorus binder with meals Subjective Date of service: 05/31/19 Principal diagnosis: end-stage renal disease, hypotension Interval history: Patient seen lying in bed. He answers few questions. Objective - Exam Narrative Exam: Middle-aged, comfortable man lying in bed looks older than stated age in no acute distress HEENT: NCAT, pink oral mucous membrane Neck: Supple, no venous distention CVS: S1S2 RRR with no murmur, rub or gallop Chest: Clear to auscultation Abdomen: Protuberant, soft, nontender, no organomegaly, bowel sounds are present Extremities: No edema, right upper extremity AV access Neuro: Awake, says just a few words, follows simple commands alert no focal deficits - Vital Signs Vital signs: Vital Signs - 12hr 05/31/19 05/31/19 05:47 12:11 Temperature 99.0 F 98.2 F Pulse Rate 76 74 Respiratory 18 14 Rate Blood Pressure 155/62 142/61 O2 Sat by Pulse 96 96 Oximetry - Lab 05/30/19 07:19 05/31/19 05:16 Most recent lab results Calcium 9.2 mg/dL (8.4-10.2) 05/31/19 05:16 Phosphorus 7.90 mg/dL (2.5-4.5) H 05/30/19 07:19 Magnesium 2.10 mg/dL (1.7-2.3) 05/30/19 07:19 Medications & Allergies - Medications Allergies/Adverse Reactions: Allergies No Known Allergies Allergy (Verified 11/26/18 14:12) Home Medications: Home Medications Medication Instructions Recorded Confirmed Last Taken Type Insulin Glargine,Hum.rec.anlog 20 unit SQ QHS 06/21/14 12/11/18 12/10/18 History [Lantus] Sevelamer Carbonate [Renvela] 800 mg PO TIDWM 06/21/14 12/11/18 12/10/18 History Atorvastatin [Lipitor] 80 mg PO QHS 06/26/14 12/11/18 12/10/18 History Clopidogrel [Plavix] 75 mg PO QDAY 06/26/14 12/11/18 12/10/18 History Aspirin [Aspirin BABY CHEW TAB] 81 mg PO QDAY #30 tab.chew 10/14/17 12/11/18 12/10/18 Rx Carvedilol [Coreg] 12.5 mg PO BID #60 tablet 10/14/17 12/11/18 12/10/18 Rx ISOSORBIDE MONOnitrate [Imdur ER] 30 mg PO QDAY #30 tablet 10/14/17 12/11/18 12/10/18 Rx Memantine HCl 5 mg PO QHS 07/01/18 12/11/18 12/10/18 History Sertraline [Zoloft] 25 mg PO QDAY 07/01/18 12/11/18 12/10/18 History Vit B Comp No.3/Folic/C/Biotin 1 each PO QDAY 07/01/18 12/11/18 12/10/18 History [[place] Rx Tablet] HYDROcodone/APAP 5-325 [[place] 1 each PO Q4HR PRN #28 tablet 11/27/18 12/11/18 12/10/18 19:00 Rx 5-325 mg TAB] Active Medications: Generic Name Dose Route Start Last Admin Trade Name Freq PRN Reason Stop Dose Admin Acetaminophen 650 mg 05/30/19 10:00 Tylenol PO Q4H PRN Pain MILD(1-3)/Fever >100.5/[place] Acetaminophen/Hydrocodone Bitart 1 each 05/30/19 11:00 [place] 5/325 PO Q4HR PRN Pain, Moderate (4-6) Aspirin 81 mg 05/31/19 10:00 05/31/19 09:40 Baby Aspirin PO 81 mg QDAY ALANA Administration Atorvastatin Calcium 80 mg 05/30/19 22:00 05/30/19 22:14 Lipitor PO 80 mg QHS ALANA Administration Clopidogrel Bisulfate 75 mg 05/30/19 11:00 05/31/19 09:40 Plavix PO 75 mg QDAY ALANA Administration Docusate Sodium 100 mg 05/30/19 10:00 05/31/19 09:39 Colace PO 100 mg BID ALANA Administration Epoetin Ad 10,000 unit 05/30/19 09:59 Procrit IV ELVIN PRN hemodialysis Famotidine 10 mg 05/30/19 10:00 05/31/19 09:43 Pepcid PO 10 mg DAILY ALANA Administration Hydralazine HCl 5 mg 05/30/19 10:00 Apresoline IV Q30MIN PRN Hypertension Sodium Chloride 100 mls @ 999 mls/hr 05/30/19 09:59 Nacl 0.9% IV ELVIN PRN Hypotension Insulin Glargine 20 units 05/30/19 22:00 05/30/19 22:21 Lantus SUB-Q 20 units QHS ALANA Administration Lactulose 20 gm 05/31/19 13:00 05/31/19 13:59 Cephulac PO 20 gm Q6HR ALANA Administration Memantine 5 mg 05/30/19 22:00 05/30/19 22:15 Namenda PO 5 mg QHS ALANA Administration Metoclopramide HCl 10 mg 05/30/19 10:00 Reglan PO Q6H PRN Nausea And Vomiting Multivit/Ca Carb/B Cmplx/FA/Prenat 1 cap 05/30/19 11:00 05/31/19 09:40 Renal Caps PO 1 cap QDAY ALANA Administration Sertraline HCl 25 mg 05/31/19 10:00 05/31/19 09:40 Zoloft PO 25 mg QDAY ALANA Administration Sevelamer Carbonate 2,400 mg 05/30/19 17:00 05/31/19 13:39 Renvela PO 2,400 mg TIDWM ALANA Administration
[2019-05-31] MEDS: LANTUS SUB-Q SCH (21:33)
[2019-06-01] MEDS: NAMENDA PO SCH
[2019-06-01 05:47] LABS: Calcium 9.1 mg/dL (8.4-10.2)
[2019-06-01] MEDS: CEPHULAC PO SCH ×3 (05:48→12:46)
[2019-06-01] MEDS: PLAVIX PO SCH (09:40)
[2019-06-01] MEDS: ZOLOFT PO SCH (09:40)
[2019-06-01] MEDS: Renal Caps PO SCH (09:41)
[2019-06-01] MEDS: PEPCID PO SCH (09:41)
[2019-06-01] MEDS: BABY ASPIRIN PO SCH (09:41)
[2019-06-01] MEDS: RENVELA PO SCH ×3 (09:41→18:14)
[2019-06-01] MEDS: COLACE PO SCH (09:41)
--- NOTE | 2019-06-01 10:28 | Progress Note ---
Assessment and Plan - Patient Problems (1) Hyperkalemia Current Visit: Yes Status: Acute Plan to address problem: K has improved following Hemodialysis on a low potassium bath. cont 2K renal diet (2) Hypotensive episode Current Visit: Yes Status: Acute Plan to address problem: Blood pressure is improving. Follow-up BCx, check UA, UCx Start antibiotics if culture is positive or patient develops other signs of sepsis (3) End-stage renal disease needing dialysis Current Visit: Yes Status: Chronic Plan to address problem: Hemodialysis on a Saturday, and Saturday schedule (4) Anoxic brain damage Current Visit: No Status: Chronic Plan to address problem: Chronic sequelae of anoxic brain injury. Patient to be more agitated than usual again raising suspicion for sepsis. Follow-up/reevaluate (5) Chronic combined systolic and diastolic congestive heart failure Current Visit: No Status: Chronic Plan to address problem: Continue to Hold beta valerie (6) Hypertensive chronic kidney disease with stage 5 chronic kidney disease or end stage renal disease Current Visit: No Status: Chronic Plan to address problem: Blood pressure is now improving. Continue to hold hypertensive medications. (7) Type 2 diabetes mellitus with diabetic nephropathy Current Visit: No Status: Chronic Plan to address problem: Blood sugar management by primary Attending MD. (8) Hyperphosphatemia Current Visit: Yes Status: Acute Plan to address problem: Continue Low phosphorus diet and give phosphorus binder with meals Subjective Date of service: 06/01/19 Principal diagnosis: end-stage renal disease, hypotension Interval history: Pt awake, alert, in NAD Objective - Vital Signs Vital signs: Vital Signs - 12hr 05/31/19 06/01/19 23:26 05:36 Temperature 98.4 F 98.4 F Pulse Rate 81 79 Respiratory 18 20 Rate Blood Pressure 114/68 154/73 O2 Sat by Pulse 95 93 Oximetry - General Appearance General appearance: well-developed, well-nourished, appears stated age EENT: ATNC, PERRL, mucous membranes moist Neck: no JVD Respiratory: Present: Clear to Ascultation Cardiology: regular, S1S2 Gastrointestinal: normoactive bowel sounds Integumentary: no rash, other (no edema ) Neurologic: no focal deficit, strength 5/5, CN 3-12 intact Psychiatric: mood/affect appropriate, cooperative - Lab 05/30/19 07:19 06/01/19 05:11 Most recent lab results Calcium 9.1 mg/dL (8.4-10.2) 06/01/19 05:11 Phosphorus 7.90 mg/dL (2.5-4.5) H 05/30/19 07:19 Magnesium 2.10 mg/dL (1.7-2.3) 05/30/19 07:19 Medications & Allergies - Medications Allergies/Adverse Reactions: Allergies No Known Allergies Allergy (Verified 11/26/18 14:12) Home Medications: Home Medications Medication Instructions Recorded Confirmed Last Taken Type Insulin Glargine,Hum.rec.anlog 20 unit SQ QHS 06/21/14 12/11/18 12/10/18 History [Lantus] Sevelamer Carbonate [Renvela] 800 mg PO TIDWM 06/21/14 12/11/18 12/10/18 History Atorvastatin [Lipitor] 80 mg PO QHS 06/26/14 12/11/18 12/10/18 History Clopidogrel [Plavix] 75 mg PO QDAY 06/26/14 12/11/18 12/10/18 History Aspirin [Aspirin BABY CHEW TAB] 81 mg PO QDAY #30 tab.chew 10/14/17 12/11/18 12/10/18 Rx Carvedilol [Coreg] 12.5 mg PO BID #60 tablet 10/14/17 12/11/18 12/10/18 Rx ISOSORBIDE MONOnitrate [Imdur ER] 30 mg PO QDAY #30 tablet 10/14/17 12/11/18 12/10/18 Rx Memantine HCl 5 mg PO QHS 07/01/18 12/11/18 12/10/18 History Sertraline [Zoloft] 25 mg PO QDAY 07/01/18 12/11/18 12/10/18 History Vit B Comp No.3/Folic/C/Biotin 1 each PO QDAY 07/01/18 12/11/18 12/10/18 History [[place] Rx Tablet] HYDROcodone/APAP 5-325 [[place] 1 each PO Q4HR PRN #28 tablet 11/27/18 12/11/18 12/10/18 19:00 Rx 5-325 mg TAB] Active Medications: Generic Name Dose Route Start Last Admin Trade Name Freq PRN Reason Stop Dose Admin Acetaminophen 650 mg 05/30/19 10:00 Tylenol PO Q4H PRN Pain MILD(1-3)/Fever >100.5/[place] Acetaminophen/Hydrocodone Bitart 1 each 05/30/19 11:00 [place] 5/325 PO Q4HR PRN Pain, Moderate (4-6) Aspirin 81 mg 05/31/19 10:00 06/01/19 09:41 Baby Aspirin PO 81 mg QDAY ALANA Administration Atorvastatin Calcium 80 mg 05/30/19 22:00 05/31/19 21:32 Lipitor PO 80 mg QHS ALANA Administration Clopidogrel Bisulfate 75 mg 05/30/19 11:00 06/01/19 09:40 Plavix PO 75 mg QDAY ALANA Administration Docusate Sodium 100 mg 05/30/19 10:00 06/01/19 09:41 Colace PO 100 mg BID ALANA Administration Epoetin Ad 10,000 unit 05/30/19 09:59 Procrit IV ELVIN PRN hemodialysis Famotidine 10 mg 05/30/19 10:00 06/01/19 09:41 Pepcid PO 10 mg DAILY ALANA Administration Hydralazine HCl 5 mg 05/30/19 10:00 Apresoline IV Q30MIN PRN Hypertension Sodium Chloride 100 mls @ 999 mls/hr 05/30/19 09:59 Nacl 0.9% IV ELVIN PRN Hypotension Insulin Glargine 20 units 05/30/19 22:00 05/31/19 21:33 Lantus SUB-Q 20 units QHS ALANA Administration Lactulose 20 gm 05/31/19 13:00 06/01/19 05:48 Cephulac PO 20 gm Q6HR ALANA Administration Memantine 5 mg 05/30/19 22:00 06/01/19 00:00 Namenda PO 5 mg QHS ALANA Administration Metoclopramide HCl 10 mg 05/30/19 10:00 05/31/19 18:15 Reglan PO 10 mg Q6H PRN Administration Nausea And Vomiting Multivit/Ca Carb/B Cmplx/FA/Prenat 1 cap 05/30/19 11:00 06/01/19 09:41 Renal Caps PO 1 cap QDAY ALANA Administration Sertraline HCl 25 mg 05/31/19 10:00 06/01/19 09:40 Zoloft PO 25 mg QDAY ALANA Administration Sevelamer Carbonate 2,400 mg 05/30/19 17:00 06/01/19 09:41 Renvela PO 2,400 mg TIDWM ALANA Administration
[2019-06-01] MEDS ORDERED: REGLAN PO PRN (11:00)
[2019-06-01] MEDS ORDERED: COREG PO SCH ×2 (11:00→13:00)
[2019-06-01] MEDS ORDERED: IMDUR PO SCH (13:00)
--- NOTE | 2019-06-01 13:12 | Discharge Summary ---
Providers - Providers Date of Admission: 05/30/19 09:18 Date of discharge: 06/01/19 Attending physician: LUCY CASTILLO 05/30/19 09:49 Consult to Physician [CONS] Routine Comment: Consulting Provider: CHICHI FRANK Physician Instructions: Reason For Exam: esrd [facility] Condition: Stable Pertinent studies: CXR Hospital course: Discharge diagnosis and management: /Metabolic encephalopathy, acute on chronic -most likely due to ESRD with hyperkalemia, hypotension and hyperammonemia -has h/o anoxic brain injury, given supportive care, monitored BP, corrected electrolytes /Hypotension, likely from dehydration, BP normotensive to hypertensive since admission, negative blood cx /Diabetes mellitus Continued insulin therapy with Accu-Cheks before meals and daily at bedtime. reduced long acting insulin dose to prevent hypoglycemia /Hypoglycemia, BG was at 52s this am - reduced insulin dose, BG improved, added supplement with meal /End stage renal disease Continued dialysis, consulted nephrology /Hypertension Home medications was on hold as BP at low normotensive on admission Restarted again as BP started to go high /Status post right AKA, continued supportive care /Sytolic CHF without acute exacerbation fluid Mx via HD, Ef 10%, no sign of volume overload /Hyperkalemia, resolved - s/p insulin, HCO3 in the ER - s/p emergent HD and 15gm kayexalate /Urethritis, noted discharge from penis, likely POA, placed on levaquin for 5 days, renally dosed. Outpt urology f/u Dvt Px - heparin Physical exam GENERAL: well-developed elderly looking -Citizen Of [place] male lying on bed appeared to be in no discomfort. HEENT: Normocephalic. Atraumatic. No conjunctival congestion or icterus. Patient has moist mucous membranes. NECK: Supple. Trachea midline. CHEST/LUNGS: Clear to auscultated bilaterally, breathing nonlabored. No wheezes crackles or rhonchi. HEART/CARDIOVASCULAR: Regular in rate and rhythm. S1 and S2 positive. ABDOMEN: Abdomen is soft, nontender. Patient has normal bowel sounds. SKIN: There is no rash. Warm and dry. NEURO: No focal motor deficit. Follows simple command. MUSCULOSKELETAL: No joint effusion or tenderness. Right AKA EXTRIMITY: No edema, no cyanosis or clubbing. PSYCH: Cooperative. Disposition: DC-30 STILL A PATIENT Time spent for discharge: 34 minutes Core Measure Documentation - Palliative Care Palliative Care/ Comfort Measures: Not Applicable - Core Measures Any of the following diagnoses?: history only Exam - Constitutional Vitals: Temp Pulse Resp BP Pulse Ox 97.8 F 74 14 208/86 97 06/01/19 12:19 06/01/19 12:19 06/01/19 12:19 06/01/19 12:52 06/01/19 12:19 Plan Activity: fall precautions, other (on wheelchair ) Weight Bearing Status: Non-Weight Bearing Diet: renal (with supplement) Special Instructions: restrict fluid intake to (1.2L/day), record daily BP diary Follow up with: SHIVAM THORNTON MD [Primary Care Provider] - 3-5 Days Prescriptions: Lactulose [Kristalose] 20 gm PO QDAY #30 packet levoFLOXacin [Levaquin] 250 mg PO QDAY #7 tablet
[2019-06-01] MEDS ORDERED: LEVAQUIN PO SCH (14:00)
[2019-06-01 18:15] VITALS: BP 143/70
[2019-06-01] MEDS ORDERED: LANTUS SUB-Q SCH (22:00)
[2019-06-02] MEDS ORDERED: CEPHULAC PO SCH (10:00)
== END 2019-06-01 17:15 | DRG 314 ==
LOC: ED 06:30 → 3A 09:18
PROVIDERS: ADMIT Internal Medicine; ATTEND Internal Medicine
PROC: 5A1D70Z Performance of Urinary Filtration, Intermittent, Less than 6 Hours Per Day (ICD-10-PCS; principal; 2019-05-30)
DX: I95.9 Hypotension, unspecified (principal); G93.41 Metabolic encephalopathy; N18.6 End stage renal disease; E72.20 Disorder of urea cycle metabolism, unspecified; I13.2 Hypertensive heart and chronic kidney disease with heart failure and with stage 5 chronic kidney disease, or end stage renal disease; G93.1 Anoxic brain damage, not elsewhere classified; I50.42 Chronic combined systolic (congestive) and diastolic (congestive) heart failure; E87.5 Hyperkalemia; E11.649 Type 2 diabetes mellitus with hypoglycemia without coma; N34.2 Other urethritis; E86.0 Dehydration; E11.22 Type 2 diabetes mellitus with diabetic chronic kidney disease; E11.21 Type 2 diabetes mellitus with diabetic nephropathy; E83.39 Other disorders of phosphorus metabolism; K21.9 Gastro-esophageal reflux disease without esophagitis; M19.90 Unspecified osteoarthritis, unspecified site; Z79.4 Long term (current) use of insulin; Z89.611 Acquired absence of right leg above knee; Z79.82 Long term (current) use of aspirin; Z79.899 Other long term (current) drug therapy; Z86.73 Personal history of transient ischemic attack (TIA), and cerebral infarction without residual deficits; I25.2 Old myocardial infarction; Z86.74 Personal history of sudden cardiac arrest; Z95.5 Presence of coronary angioplasty implant and graft; Z95.810 Presence of automatic (implantable) cardiac defibrillator
CPT/HCPCS: 36415; 71045; 80048; 80074; 80076; 82140; 82550; 82553; 82962; 83690; 83735; 83880; 84100; 84132; 85025; 85610; 85730; 86850; 86900; 86901; 87040; 87116; 93005; 93010; 96374; 96375; G0378; A9270-GY; J0360; J1815; J7030; P9047